=== PATIENT | female | born 1940 | race Caucasian/White ===

== ENCOUNTER → 2016-12-29 | Outpatient (CLI) | payer OTHER ==
[~2016-12-29] MED LIST: FURO-85 PO; INSDGI SC; LEVO75TA PO; METF-384 PO; METH118C PO; METO50TA16 PO; NVLG SQ; NXM/40 PO; SIMV-151 PO
== END | disposition home or self-care (01) ==
LOC: C.LABSPEC 17:38
PROVIDERS: ATTEND Urology
DX: N20.0 Calculus of kidney (principal)

== ENCOUNTER → 2017-02-15 | Day surgery (SDC) | payer OTHER ==
[2016-10-14 14:18] VITALS: BMI 47.0
[2017-01-20 08:35] VITALS: Ht 154.9 cm; Wt 113.6 kg
[~2017-02-15] VITALS: Ht 154.9 cm; Wt 113.6 kg
[~2017-02-15] MED LIST changes: +500ML BSS 0.3ML EPI 1:1000PF IRRIG ONE; +ACETAMINOPHEN 325 MG TAB PO PRN; +AMVISC PLUS 0.8ML SYRINGE INT OCU ONE; +ATROPINE SULFATE 0.1 MG/ML 5ML SYR IV PRN; +BSS FLUSH ONE; +EpHEDrine SULFATE INJ 50 MG/ML AMP IV PRN; +EpINEphrine INJ 1MG/ML AMP 1 MG/ML AMP ONE; +HydrALAZINE HCL 20 MG/ML VIAL ONE; +INSU1INJ33; +LACTATED RINGER'S 1000ML 500 ML IV SCH; +LIDOCAINE 3.5% OPH GEL PER APPLICATION CHARGE ONE; +LIDOCAINE HCL 1% MPF 2 ML VIAL ONE; +MIDAZOLAM HCL 1 MG/ML 2ML VIAL ONE; +NURSING VERBAL MED ORDER ONE; +OCUCOAT 1 ML SOLN IO ONE; +ONDANSETRON INJ 2 MG/ML 2 ML VIAL IV PRN; +POVIDONE-IODINE OP SOLN 30 ML BTL ONE; +PROPARACAINE 0.5% OP SOLN PER DROP CHARGE OPL SCH; +TOBRAMYCIN/DEXAMETHASONE OPH OINT PER APPLN CHARGE ONE
[2017-02-15] MEDS: PHENYLEPHRINE HCL 2.5% OP SOLN PER DROP CHARGE OPL SCH ×2 (06:44→06:47)
[2017-02-15] MEDS: TROPICAMIDE 1% OP SOLN PER DROP CHARGE OPL SCH ×2 (06:45→06:48)
[2017-02-15] MEDS: CYCLOPENTOLATE HCL 1% OP SOLN PER DROP CHARGE OPL SCH ×2 (06:46→06:49)
[2017-02-15] MEDS: GATIFLOXACIN OP SOLN PER DROP CHARGE OPL SCH ×2 (06:47→06:51)
[2017-02-15] MEDS: KETOROLAC 0.5% OP SOLN PER DROP CHARGE OPL SCH ×2 (06:55→06:56)
--- NOTE | 2017-02-15 06:57 | History & Physical Bridge - [place] ---
H&P Re-Evaluation Bridge Note: I have examined the patient, reviewed the History & Physical and in the interval since the performance of the History & Physical I have noted the following changes of clinical significance: Diagnosis: Left Cataract Procedure: Left Cataract Removal with Lens Implant No changes noted
--- NOTE | 2017-02-15 07:41 | Discharge Instructions-SurgCtr ---
Discharge Instructions Date of Service Feb 15, 2017. Visit Reason for Visit: Cataract Left Eye Discharge Discharge Diagnosis / Problem: cataract Discharge Goals Goal(s): Improve function Medications Stopped Medications Name(s): Metformin last taken 02/12/17 Activity Recommendations Activity Limitations: per Instructions/Follow-up section Anesthesia . Post Anesthesia Instructions: If you have had General Anesthesia or IV Sedation: * Do not drive today. * Resume driving when surgeon permits. * Do not make important decisions or sign legal documents today. * Call surgeon for: 1. Temperature elevations greater than 101 degrees F. 2. Uncontrollable pain. 3. Excessive bleeding. 4. Persistent nausea and vomiting. 5. Medication intolerance (nausea, vomiting or rash). * For nausea and vomiting use only clear liquids such as: tea, soda, bouillon until nausea subsides, then gradually increase diet as tolerated. * If you have any concerns or questions, call your surgeon's office. If physician is unavailable and it is an emergency, call 911 or go to the nearest emergency room. . Diet Recommendations Home Diet: resume previous diet Procedures Procedures Performed: Left Cataract Phacoemulsification With Intraocular Lens Implant Pending Studies Studies pending at discharge: no Medical Emergencies . Who to Call and When: Medical Emergencies: If at any time you feel your situation is an emergency, please call 911 immediately. . Non-Emergent Contact Non-Emergency issues call your: Underwriting Intern . . "Provider Documentation" section prepared by Patrice Ramirez. .
--- NOTE | 2017-02-15 07:42 | [facility] Operative Report ---
Operative Report Date of Service Feb 15, 2017. Operative Report 1. PREOPERATIVE DIAGNOSIS: Cataract of the left eye. 2. POSTOPERATIVE DIAGNOSIS: Same. 3. PROCEDURE: Phacoemulsification with intraocular lens implantation of the left eye. SURGEON: Dr. Patrice Ramirez. ANESTHESIA: Topical Lidocaine gel, 1% Non- Preserved intracameral Lidocaine, and monitored intravenous sedation. INDICATIONS FOR THE PROCEDURE: The patient is a 76 - year-old female with a history of cataract of the left eye causing significant visual impairment. The details of the proposed procedure were explained to the patient who asked appropriate questions and following discussion of all risks, benefits and alternatives agreed to have the procedure done. 4. OPERATION AND FINDINGS: DESCRIPTION OF PROCEDURE: After informed consent was obtained, the patient was brought to the Operating Room at the [facility]. The patient was placed in a supine position and then the left eye was prepped and draped in the usual sterile fashion for intraocular surgery. A drop of topical Lidocaine gel was placed in the operative eye. A wire lid speculum was then placed in the fornices. A corneal paracentesis was then created temporally. The Non-Preserved Lidocaine was then instilled into the anterior chamber. The anterior chamber was then pressurized with viscoelastic. A 2.0 mm clear corneal incision was then created temporally. A cystotome was inserted into the anterior chamber and used to create a tear in the anterior lens capsule. This capsular tear was then used to create a small flap and the flap was dragged in a counterclockwise direction in order to create a continuous curvilinear capsulorrhexis. Hydrodissection was accomplished with balanced salt solution. Phacoemulsification of the lens nucleus was then performed in a standard [id number] technique. The phaco time was 42 seconds with an average power of 13 %. The remaining cortical material was removed using irrigation aspiration. The capsular bag was then filled with viscoelastic. A [employer] Lomb MI60L +22.5 diopters lens was then loaded into the injector and injected into the capsular bag. The remaining viscoelastic was removed with the irrigation aspiration handpiece. The wound was hydrated and then checked and found to be watertight. The intraocular pressure was checked and found to be adequate. The wire lid speculum was removed and the patient's face was cleaned and dried. TobraDex ointment was placed in the inferior fornix. The patient was discharged to the Recovery Room having tolerated the procedure well. There were no complications. The patient will be seen tomorrow in the office for follow-up. I attest to the content of the Intraoperative Record and any orders documented therein. Any exceptions are noted below.
[2017-02-15 08:16] VITALS: BP 149/71; PULSE 64; TEMP 36.4; O2SAT 95
--- NOTE | 2017-02-15 08:18 | Anesthesia Progress Nt - [facility] ---
Anesthesia Post Op Note Date & Time Feb 15, 2017 at 08:18 Vital Signs Pain Intensity: 0 Vital Signs Past 12 Hours Date Time Temp Pulse Resp B/P (MAP) Pulse Ox O2 Delivery O2 Flow Rate FiO2 02/15/17 08:16 36.4 64 16 149/71 (97) 95 Room Air 02/15/17 07:45 36.4 68 16 144/84 (104) 95 Room Air 02/15/17 06:36 36.8 60 18 151/91 (111) 98 Room Air Notes Mental Status: alert / awake / arousable, participated in evaluation Pt Amnestic to Procedure: Yes Nausea / Vomiting: adequately controlled Pain: adequately controlled Airway Patency, RR, SpO2: stable & adequate BP & HR: stable & adequate Hydration State: stable & adequate Anesthetic Complications: no major complications apparent
== END | disposition home or self-care (01) ==
LOC: X.SURG 06:18
PROVIDERS: ATTEND Ophthalmology
DX: H26.9 Unspecified cataract (principal); E11.9 Type 2 diabetes mellitus without complications; I25.10 Atherosclerotic heart disease of native coronary artery without angina pectoris; I10 Essential (primary) hypertension; E78.00 Pure hypercholesterolemia, unspecified; R00.2 Palpitations; K21.9 Gastro-esophageal reflux disease without esophagitis; E66.9 Obesity, unspecified; Z90.710 Acquired absence of both cervix and uterus; Z90.49 Acquired absence of other specified parts of digestive tract; Z90.89 Acquired absence of other organs; Z79.4 Long term (current) use of insulin

== ENCOUNTER → 2017-04-19 | Day surgery (SDC) | payer OTHER ==
[2017-02-24 11:18] VITALS: Ht 154.9 cm; Wt 113.6 kg
[~2017-04-19] VITALS: Ht 154.9 cm; Wt 113.6 kg
[~2017-04-19] MED LIST changes: +CYCLOPENTOLATE HCL 1% OP SOLN PER DROP CHARGE OPR SCH; +GATIFLOXACIN OP SOLN PER DROP CHARGE OPR SCH; -HydrALAZINE HCL 20 MG/ML VIAL ONE; +INSULIN HUMAN REGULAR PER UNIT 3 UNITS in SYRINGE 0 ML IV STA; +KETOROLAC 0.5% OP SOLN PER DROP CHARGE OPR SCH; -NURSING VERBAL MED ORDER ONE; +NovoLIN-R INSULIN PER UNIT CHARGE ONE; -ONDANSETRON INJ 2 MG/ML 2 ML VIAL IV PRN; +PHENYLEPHRINE HCL 10% OP SOLN PER DROP CHARGE OPR SCH; +PHENYLEPHRINE HCL 2.5% OP SOLN PER DROP CHARGE OPR SCH; -PROPARACAINE 0.5% OP SOLN PER DROP CHARGE OPL SCH; +PROPARACAINE 0.5% OP SOLN PER DROP CHARGE OPR SCH; +TROPICAMIDE 1% OP SOLN PER DROP CHARGE OPR SCH
[2017-04-19] MEDS: PHENYLEPHRINE HCL 2.5% OP SOLN PER DROP CHARGE OPR SCH ×2 (06:55→07:01)
[2017-04-19] MEDS: TROPICAMIDE 1% OP SOLN PER DROP CHARGE OPR SCH ×2 (06:56→07:02)
[2017-04-19] MEDS: CYCLOPENTOLATE HCL 1% OP SOLN PER DROP CHARGE OPR SCH ×2 (06:57→07:03)
[2017-04-19] MEDS: KETOROLAC 0.5% OP SOLN PER DROP CHARGE OPR SCH ×2 (06:58→07:04)
[2017-04-19] MEDS: GATIFLOXACIN OP SOLN PER DROP CHARGE OPR SCH ×2 (06:59→07:05)
--- NOTE | 2017-04-19 07:30 | History & Physical Bridge - [place] ---
H&P Re-Evaluation Bridge Note: I have examined the patient, reviewed the History & Physical and in the interval since the performance of the History & Physical I have noted the following changes of clinical significance: No changes noted
--- NOTE | 2017-04-19 08:00 | [facility] Operative Report ---
Operative Report Date of Service Apr 19, 2017. Operative Report 1. PREOPERATIVE DIAGNOSIS: Cataract of the right eye. 2. POSTOPERATIVE DIAGNOSIS: Same. 3. PROCEDURE: Phacoemulsification with intraocular lens implantation of the right eye. SURGEON: Dr. Patrice Ramirez. ANESTHESIA: Topical Lidocaine gel, 1% Non- Preserved intracameral Lidocaine, and monitored intravenous sedation. INDICATIONS FOR THE PROCEDURE: The patient is a 76 - year-old female with a history of cataract of the right eye causing significant visual impairment. The details of the proposed procedure were explained to the patient who asked appropriate questions and following discussion of all risks, benefits and alternatives agreed to have the procedure done. 4. OPERATION AND FINDINGS: DESCRIPTION OF PROCEDURE: After informed consent was obtained, the patient was brought to the Operating Room at the [facility]. The patient was placed in a supine position and then the right eye was prepped and draped in the usual sterile fashion for intraocular surgery. A drop of topical Lidocaine gel was placed in the operative eye. A wire lid speculum was then placed in the fornices. A corneal paracentesis was then created temporally. The Non-Preserved Lidocaine was then instilled into the anterior chamber. The anterior chamber was then pressurized with viscoelastic. A 2.0 mm clear corneal incision was then created temporally. A cystotome was inserted into the anterior chamber and used to create a tear in the anterior lens capsule. This capsular tear was then used to create a small flap and the flap was dragged in a counterclockwise direction in order to create a continuous curvilinear capsulorrhexis. Hydrodissection was accomplished with balanced salt solution. Phacoemulsification of the lens nucleus was then performed in a standard [id number]-[id number]-[id number] technique. The phaco time was 19 seconds with an average power of 10 %. The remaining cortical material was removed using irrigation aspiration. The capsular bag was then filled with viscoelastic. A [employer]ch [employer] Lomb MI60L +22.5 diopters lens was then loaded into the injector and injected into the capsular bag. The remaining viscoelastic was removed with the irrigation aspiration handpiece. The wound was hydrated and then checked and found to be watertight. The intraocular pressure was checked and found to be adequate. The wire lid speculum was removed and the patient's face was cleaned and dried. TobraDex ointment was placed in the inferior fornix. The patient was discharged to the Recovery Room having tolerated the procedure well. There were no complications. The patient will be seen tomorrow in the office for follow-up. I attest to the content of the Intraoperative Record and any orders documented therein. Any exceptions are noted below.
--- NOTE | 2017-04-19 08:01 | Discharge Instructions-SurgCtr ---
Discharge Instructions Date of Service Apr 19, 2017. Visit Reason for Visit: Cataract Right Eye Discharge Discharge Diagnosis / Problem: cataract Discharge Goals Goal(s): Improve function Medications Stopped Medications Name(s): held metformin for 5 days Activity Recommendations Activity Limitations: per Instructions/Follow-up section Anesthesia . Post Anesthesia Instructions: If you have had General Anesthesia or IV Sedation: * Do not drive today. * Resume driving when surgeon permits. * Do not make important decisions or sign legal documents today. * Call surgeon for: 1. Temperature elevations greater than 101 degrees F. 2. Uncontrollable pain. 3. Excessive bleeding. 4. Persistent nausea and vomiting. 5. Medication intolerance (nausea, vomiting or rash). * For nausea and vomiting use only clear liquids such as: tea, soda, bouillon until nausea subsides, then gradually increase diet as tolerated. * If you have any concerns or questions, call your surgeon's office. If physician is unavailable and it is an emergency, call 911 or go to the nearest emergency room. . Diet Recommendations Home Diet: resume previous diet Procedures Procedures Performed: Right Cataract Phacoemulsification With Intraocular Lens Implant Pending Studies Studies pending at discharge: no Medical Emergencies . Who to Call and When: Medical Emergencies: If at any time you feel your situation is an emergency, please call 911 immediately. . Non-Emergent Contact Non-Emergency issues call your: Nuclear Cardiology Technologist . . "Provider Documentation" section prepared by Patrice Ramirez. .
[2017-04-19 08:05] VITALS: TEMP 36.5
--- NOTE | 2017-04-19 08:14 | Anesthesia Progress Nt - [facility] ---
Anesthesia Post Op Note Date & Time Apr 19, 2017 at 08:14 Vital Signs Pain Intensity: 0 Vital Signs Past 12 Hours Date Time Temp Pulse Resp B/P (MAP) Pulse Ox O2 Delivery O2 Flow Rate FiO2 04/19/17 08:05 36.5 70 16 160/81 (107) 95 Room Air 04/19/17 06:46 37.0 67 16 133/75 (94) 96 Room Air Notes Mental Status: alert / awake / arousable, participated in evaluation Pt Amnestic to Procedure: Yes Nausea / Vomiting: adequately controlled Pain: adequately controlled Airway Patency, RR, SpO2: stable & adequate BP & HR: stable & adequate Hydration State: stable & adequate Anesthetic Complications: no major complications apparent
[2017-04-19 08:25] VITALS: PULSE 67; O2SAT 95
[2017-04-19 08:27] VITALS: BP 161/89
== END | disposition home or self-care (01) ==
LOC: X.SURG 06:18
PROVIDERS: ATTEND Ophthalmology
DX: H26.9 Unspecified cataract (principal); E11.9 Type 2 diabetes mellitus without complications; I51.9 Heart disease, unspecified; I10 Essential (primary) hypertension; Z88.8 Allergy status to other drugs, medicaments and biological substances; Z88.5 Allergy status to narcotic agent; Z88.6 Allergy status to analgesic agent; Z88.2 Allergy status to sulfonamides; Z79.899 Other long term (current) drug therapy; Z79.84 Long term (current) use of oral hypoglycemic drugs; Z79.82 Long term (current) use of aspirin

== ENCOUNTER 2024-02-22 10:58 | Inpatient (IN) ==
--- NOTE | 2024-02-22 11:18 | Emergency Department Note ---
Impression & Plan JOSHI (dyspnea on exertion), Atrial fibrillation ED Provider Note NAME: SHAYAN HENDERSON AGE: 83 SEX: F : 1940 ARRIVES VIA: Ambulance INFORMANT: Patient, EMS ED PROVIDER(S): Kyle Blair DO CHIEF COMPLAINT: Shortness of breath HPI: The patient is an 83-year-old female who presented to the emergency department for an evaluation of shortness of breath and lower extremity edema. The patient has a history of renal insufficiency but also cardiac disease. She has a history of paroxysmal atrial fibrillation. The patient was following up with her metallurgical specialist today. While she was at the office she was noted to be very short of breath. There is concern the patient was not doing well. She was sent to our emergency department by ambulance. I did receive a phone call by the metallurgical specialist prior to sending the patient. The patient has a history of right-sided heart failure as well as an LAD stent. She also has a history of paroxysmal atrial fibrillation and volume overload. She was recently admitted at a different facility. She was treated with IV diuretics but her BUN continues to go up and her shortness of breath continues to worsen. ROS: See above HPI for pertinent positives & negatives. A total of 10 systems reviewed and were otherwise negative. PAST MEDICAL HISTORY: See Below PAST SURGICAL HISTORY: See Below FAMILY HISTORY: See Below SOCIAL HISTORY: See Below HOME MEDICATIONS: See Below ALLERGIES: See Below VITALS: See Below PHYSICAL EXAMINATION: GENERAL: Patient is awake alert and resting comfortably. EYES: The conjunctivae are clear. The pupils are round and reactive. EARS, NOSE, MOUTH AND THROAT: The nose is without any evidence of any deformity. NECK: The neck is nontender and supple. RESPIRATORY: Diminished breath sounds are noted throughout. Rales are noted at both bases. There is mild conversational dyspnea noted. CARDIOVASCULAR: Regular rate and rhythm noted there no murmurs rubs or gallops normal S1 normal S2. GASTROINTESTINAL: The abdomen is soft. Abdomen is nontender. MUSCULOSKELETAL/EXTREMITIES: There is no evidence of gross deformity full range of motion is noted in the hips and shoulders. SKIN: Skin is warm and dry. Pedal edema was noted bilaterally. NEUROLOGIC: Patient is awake alert and oriented x3 MEDICAL DECISION MAKING: The patient is an 83-year-old female who presented to the emergency department for an evaluation of difficulty breathing. I did receive a phone call about the patient from her primary metallurgical specialist requesting an evaluation as well as inpatient management. The patient has had recent issues with volume overload as well as renal insufficiency. She was admitted to an outpatient facility recently and was diuresed. It was felt that the patient needed further inpatient management as well as an echocardiogram to help guide her management going forward. The patient was reevaluated multiple times. The patient does take oral anticoagulation. She was not tachycardic or hypoxic. Vital signs are reassuring. She was found to be in atrial fibrillation. I discussed her condition with the on-call [facility] hospitalist. Triage Nursing notes reviewed. Prior medical records reviewed Vital Signs: reviewed and remarkable for no significant abnormalities Differential diagnosis: Reactive airway disease, pneumonia, pneumothorax, COPD, CHF, infections, cardiac ischemia, pulmonary embolism, musculoskeletal, gastrointestinal, as well as other pathologies. ER treatment provided: See below Diagnostics interpreted by me: ECG: EKG was obtained in the emergency department. My interpretation is atrial fibrillation at 83 bpm. Poor R wave progression was noted. Nonspecific ST segment depressions were noted. No previous tracing was available. Cardiac Monitoring: An order was placed for continuous cardiac monitoring. The monitor shows a rate of 97 bpm with atrial fibrillation. Laboratory studies: As stated above and show below. Imaging studies: See below. Radiographic imaging was reviewed by myself Consultation(s): I discussed this case with Dr. Larios who is on-call for the [facility]. Past Med/Surg History Problem List (Updated 02/22/24 @ 14:02 by Kyle Blair DO) Atrial fibrillation (Acute) JOSHI (dyspnea on exertion) (Acute) Coronary artery disease Anemia Chronic kidney disease, stage 3b Class 3 obesity Hypertension Type 2 diabetes with complication Nephrolithiasis Arthritis (Acute) Diabetes mellitus type 2, uncontrolled (Acute) Dysesthesia (Acute) Dyslipidemia (Acute) History of diabetic ulcer of foot (Acute) Hypertension after donor nephrectomy requiring medication (Acute) Hypothyroidism (Acute) Nephrolithiasis, uric acid (Acute) Nonproliferative diabetic retinopathy of both eyes (Acute) Peripheral neuropathy (Acute) UTI (urinary tract infection) (Acute) Surgical History H/O: hysterectomy Hx of cholecystectomy History of appendectomy Family History Family/Other Cancer Diabetes Hypertension Lung disease Prostate cancer Renal cell carcinoma Social History Smoking Status: Never smoker Hx Alcohol Use: No Preferred Language: Arabic marital status: current occupational status: retired Feels Safe at Home: Yes Allergies Allergies Allergy/AdvReac Type Severity Reaction Status Date / Time celecoxib AdvReac Intermediate VOMITING Verified 04/13/23 08:39 duloxetine AdvReac Intermediate VOMITING Verified 04/13/23 08:39 fosinopril AdvReac Intermediate VOMITING Verified 04/13/23 08:39 gabapentin AdvReac Intermediate VOMITING Verified 04/13/23 08:39 hydrocodone AdvReac Intermediate VOMITING Verified 04/13/23 08:39 milnacipran AdvReac Intermediate VOMITING Verified 04/13/23 08:39 nalbuphine AdvReac Intermediate VOMITING Verified 04/13/23 08:39 NSAIDS (Non-Steroidal AdvReac Intermediate VOMITING Verified 04/13/23 08:39 Anti-Inflamma salicylates AdvReac Intermediate VOMITING Verified 04/13/23 08:39 Sulfa (Sulfonamide AdvReac Intermediate VOMITING Verified 04/13/23 08:39 Antibiotics) trimethoprim AdvReac Intermediate VOMITING Verified 04/13/23 08:39 Pyrazolones AdvReac Intermediate VOMITING Uncoded 04/13/23 08:39 Home Meds Home Medications Medication Instructions Recorded Confirmed ascorbic acid (vitamin C) 500 mg 500 mg PO BID 04/29/22 04/13/23 capsule atorvastatin 80 mg tablet 80 mg PO DAILY 04/29/22 04/13/23 blood sugar diagnostic (OneTouch 04/29/22 04/13/23 Verio test strips) carvedilol 12.5 mg tablet 12.5 mg PO BID 04/29/22 04/13/23 ferrous gluconate 240 mg (27 mg 240 mg PO .QOD 04/29/22 04/13/23 iron) tablet (Fergon) levothyroxine 100 mcg tablet 100 mcg PO DAILY 04/29/22 04/13/23 magnesium chloride 71.5 mg 71.5 mg PO DAILY 04/29/22 04/13/23 (magnesium chloride) tablet,delayed release (Slow-Mag) mecobalamin (vitamin B12) 1,000 1,000 mcg PO DAILY 04/29/22 04/13/23 mcg lozenges montelukast 10 mg tablet 10 mg PO DAILY 04/29/22 04/13/23 ne-og-upzp-FA-Ca carb-vit K 1 tab PO DAILY 04/29/22 04/13/23 [Women's Multivitamin] pantoprazole 40 mg tablet,delayed 40 mg PO DAILY 04/29/22 04/13/23 release pregabalin 50 mg capsule 50 mg PO BID 04/29/22 04/13/23 apixaban 5 mg tablet (Eliquis) 5 mg PO BID 06/30/22 04/13/23 bumetanide 1 mg tablet 1 mg PO BID 06/30/22 04/13/23 dapagliflozin propanediol 5 mg 5 mg PO DAILY 06/30/22 04/13/23 tablet (Farxiga) aspirin 81 mg tablet,delayed 81 mg PO DAILY 08/26/22 04/13/23 release calcium 500 mg (as 1 tab PO BID 08/26/22 04/13/23 carbonate)-vitamin D3 5 mcg (200 unit) tablet (Oyster Shell Calcium-Vitamin D3) liraglutide 0.6 mg/0.1 mL (18 mg/3 1.8 mg subcut DAILY 08/26/22 04/13/23 mL) subcutaneous pen injector (Victoza 3-Manny) lisinopril 10 mg tablet 10 mg PO DAILY 08/26/22 04/13/23 blood-glucose meter (ReliOn 10/06/22 04/13/23 All-In-One Meter kit) Previous Rx's Medication Instructions Recorded methenamine hippurate 1 gram tablet 1 g PO HS #90 tabs 09/01/22 insulin degludec 200 unit/mL (3 40 unit (0.2 mL) subcut QPM #18 mL 04/19/23 mL) subcutaneous pen (Tresiba FlexTouch U-200 insulin) Novolog FlexPen U-100 Insulin 100 See Rx Instructions subcut TID #30 09/12/23 unit/mL (3 mL) subcutaneous mL (insulin aspart U-100) nitrofurantoin 100 mg PO Q12H 7 days #14 caps 09/12/23 monohydrate/macrocrystals 100 mg capsule (Macrobid) amoxicillin 875 mg-potassium 1 tab PO BID 7 days #14 tabs 08/19/24 clavulanate 125 mg tablet Results & Data (ED) Vital Signs Vital Signs - 24 hr 02/22/24 11:14 02/22/24 11:24 Temperature 36.5 C Temperature Source Oral Pulse Rate 86 97 H Respiratory Rate 18 Respiratory Effort / Characteristics Non-Labored Spontaneous Respiratory Depth Normal Respiratory Pattern Regular Blood Pressure 119/65 Blood Pressure Mean 83 Pulse Oximetry 94 Oxygen Delivery Method Room Air Sepsis Recent Fever Within 48 Hours No Sepsis New/Unexplained Change in Mental Status No Sepsis Action Taken by Nursing No Action Required Home Medications Current Medication List: was personally reviewed by me Laboratory Data Attestation: I reviewed the patient's lab results. 02/22/24 11:25 02/22/24 11:25 Lab Results 02/22/24 02/22/24 Range/Units 11:12 11:25 WBC 6.51 (4.8-10.8) K/ul RBC 3.71 L (4.20-5.40) M/uL Hgb 10.3 L (12.0-16.0) g/dl Hct 33.0 L (37.0-47.0) % MCV 88.9 (80.0-100.0) fL MCH 27.8 (25.0-34.0) pg MCHC 31.2 L (32.0-36.0) g/dL RDW Std Deviation 59.1 H (36.4-46.3) fL RDW Coeff of Heidi 18.4 H (11.5-14.5) % Plt Count 167 (130-400) K/uL MPV 9.8 (9.4-12.4) fL Immature Gran % (Auto) 0.5 % Neut % (Auto) 67.0 % Lymph % (Auto) 15.1 % Miller % (Auto) 13.4 % Eos % (Auto) 2.9 % Baso % (Auto) 1.1 % Neut # (Auto) 4.37 (1.40-6.50) K/uL Lymph # (Auto) 0.98 L (1.20-3.40) K/uL Miller # (Auto) 0.87 H (0.11-0.59) K/uL Eos # (Auto) 0.19 (0.00-0.50) K/uL Baso # (Auto) 0.07 (0.00-0.20) K/uL Immature Gran # (Auto) 0.03 (0.01-0.20) K/uL PT 11.3 (9.0-12.0) Seconds INR 1.0 (0.9-1.1) APTT 31 (21-31) Seconds PTT Ratio 1.2 Sodium 141 (136-145) mmol/L Potassium 4.4 (3.5-5.1) mmol/L Chloride 106 (98-107) mmol/L Carbon Dioxide 29 (21-32) mmol/L Anion Gap 6 (3-11) BUN 53 H (6-23) mg/dl Creatinine 1.52 H (0.6-1.2) mg/dl Est Cr Clr Drug Dosing 36.8 ml/min eGFR 34.24 BUN/Creatinine Ratio 34.9 H (10-20) Glucose 125 H (70-99(Fasting)) mg/dl Calcium 9.1 (8.6-10.3) mg/dl Magnesium 2.3 (1.7-2.4) mg/dl Total Bilirubin 0.7 (0.2-1.0) mg/dl AST 14 (13-39) U/L ALT 15 (7-52) U/L Alkaline Phosphatase 37 (34-104) U/L Troponin I High Sens 14.2 H (0-14) pg/ml B-Natriuretic Peptide 414 H (0-100) pg/ml Total Protein 6.7 (6.0-8.3) gm/dl Albumin 4.0 (3.4-5.0) gm/dl Globulin 2.7 (2.5-4.0) gm/dl Albumin/Globulin Ratio 1.5 (0.9-2) SARS-CoV-2 (PCR) NEGATIVE (Negative) Influenza Type A (PCR) Negative (Neg) Influenza Type B (PCR) Negative (Neg) RSV (RT-PCR) Negative (Neg) Imaging Data Attestation: I personally reviewed and interpreted this imaging study as follows: My Impression: 1 view chest x-ray was obtained in the emergency department. My interpretation is no free air, final report below. Radiologist's Impression: Chest X-Ray 02/22/24 11:00 XR chest 1V portable CLINICAL HISTORY: Dyspnea COMPARISON STUDY: None FINDINGS: There is moderate cardiomegaly without pulmonary vascular congestion. No effusion, consolidation, or pneumothorax. IMPRESSION: No acute findings. ACT 112: Negative or not required by law. Electronically signed by: Sonny Hong M.D. 02/22/2024 12:35 PM Discharge Plan Visit Data Chief Complaint: Shortness of Breath/Dyspnea Stated Complaint: SOB, AFIB ED Provider: Kyle Blair Discharge Problem: JOSHI (dyspnea on exertion), Atrial fibrillation Patient Disposition: Being Evaluated by Hospitalist Forms Stand Alone Forms: My [facility] Prescriptions Prescriptions: No Action insulin degludec [Tresiba FlexTouch U-200] 200 unit/mL (3 mL) insulin pen 40 unit subcut QPM Qty: 18 3RF nitrofurantoin monohyd/m-cryst [Macrobid] 100 mg capsule 100 mg PO Q12H 7 Days Qty: 14 0RF Rx Instructions: must administer with a meal/food insulin aspart U-100 [Novolog FlexPen U-100 Insulin] 100 unit/mL (3 mL) insulin pen See Rx Instructions subcut TID Qty: 30 3RF Rx Instructions: subcutaneously three times a day; Inject 8 units for Breakfast, 12 units with lunch and dinner. Add pre meal scale target of 150 cf of 30 amoxicillin-pot clavulanate 875-125 mg tablet 1 tab PO BID 7 Days Qty: 14 0RF (DME) blood-glucose meter [ReliOn All-In-One Meter] Kit See Rx Instructions .Route Rx Instructions: As directed bumetanide 1 mg tablet 1 mg PO BID Farxiga 5 mg tablet 5 mg PO DAILY Eliquis 5 mg tablet 5 mg PO BID methenamine hippurate 1 gram tablet 1 g PO HS Qty: 90 3RF Rx Instructions: Take one tablet at bedtime. pregabalin 50 mg capsule 50 mg PO BID levothyroxine 100 mcg tablet 100 mcg PO DAILY (DME) OneTouch Verio test strips Strip See Rx Instructions .Route Rx Instructions: Test blood sugar four times daily carvedilol 12.5 mg tablet 12.5 mg PO BID Rx Instructions: must administer with a meal/food montelukast 10 mg tablet 10 mg PO DAILY Slow-Mag 71.5 mg tablet,delayed release (DR/EC) 71.5 mg PO DAILY [id number]-FA-Ca carb-vit K [Women's Multivitamin] 1 tab PO DAILY mecobalamin (vitamin B12) 1,000 mcg lozenge 1,000 mcg PO DAILY Rx Instructions: allow to dissolve in mouth OR may chew lightly before swallowing ferrous gluconate [Fergon] 240 mg (27 mg iron) tablet 240 mg PO .QOD pantoprazole 40 mg tablet,delayed release (DR/EC) 40 mg PO DAILY atorvastatin 80 mg tablet 80 mg PO DAILY ascorbic acid (vitamin C) 500 mg capsule 500 mg PO BID Rx Instructions: Take 1 tablet by mouth twice daily with iron supplement Victoza 3-Manny 0.6 mg/0.1 mL (18 mg/3 mL) pen injector 1.8 mg SUBCUT DAILY calcium carbonate-vitamin D3 [Oyster Shell Calcium-Vit D3] 500 mg-5 mcg (200 unit) tablet 1 tab PO BID aspirin [Aspirin Low-Strength] 81 mg Tablet,Delayed Release (Dr/Ec) 81 mg PO DAILY lisinopril 10 mg tablet 10 mg PO DAILY Referrals Referrals: Pricilla Lewis MD [Primary Care Provider] - Discharge Problem: Atrial fibrillation Qualifiers: Atrial fibrillation type: unspecified Qualified Code(s): I48.91 - Unspecified atrial fibrillation
[2024-02-22 11:45] LABS: Basophils # (auto) 0.07 K/uL (0.00-0.20); Basophils % (auto) 1.1 %; Eosinophils # (auto) 0.19 K/uL (0.00-0.50); Eosinophils % (auto) 2.9 %; Hemoglobin 10.3 g/dl (12.0-16.0); Immature Granulocytes # (auto) 0.03 K/uL (0.01-0.20); Immature Granulocytes % (auto) 0.5 %; Lymphocytes # (auto) 0.98 K/uL (1.20-3.40); Lymphocytes % (auto) 15.1 %; Mean Corpuscular Hemoglobin 27.8 pg (25.0-34.0); Mean Corpuscular Hgb Conc 31.2 g/dL (32.0-36.0); Mean Corpuscular Volume 88.9 fL (80.0-100.0); Mean Platelet Volume 9.8 fL (9.4-12.4); Monocytes # (auto) 0.87 K/uL (0.11-0.59); Monocytes % (auto) 13.4 %; Neutrophils # (auto) 4.37 K/uL (1.40-6.50); Platelet Count 167 K/uL (130-400); RDW Coefficient of Variation 18.4 % (11.5-14.5); RDW Standard Deviation 59.1 fL (36.4-46.3); Red Blood Count 3.71 M/uL (4.20-5.40); White Blood Count 6.51 K/ul (4.8-10.8)
[2024-02-22 11:58] LABS: Albumin Globulin Ratio 1.5 (0.9-2); BUN Creatinine Ratio 34.9 (10-20); Bilirubin,Total 0.7 mg/dl (0.2-1.0); Calcium 9.1 mg/dl (8.6-10.3); Creatinine Clr Calc Pharmacy 36.8 ml/min; Globulin 2.7 gm/dl (2.5-4.0); Magnesium 2.3 mg/dl (1.7-2.4); Potassium 4.4 mmol/L (3.5-5.1); Total Protein 6.7 gm/dl (6.0-8.3)
[2024-02-22 12:04] LABS: Troponin I High Sensitivity 14.2 pg/ml (0-14)
[2024-02-22 12:04] LABS: Influenza A virus by PCR Negative (Neg); Influenza B virus by PCR Negative (Neg); RSV by PCR Negative (Neg); SARS CoV2 RNA(COVID-19) Ceph NEGATIVE (Negative)
[2024-02-22 12:06] LABS: Partial Thromboplastin Ratio 1.2; Partial Thromboplastin Time 31 Seconds (21-31); Prothrombin Time 11.3 Seconds (9.0-12.0)
--- NOTE | 2024-02-22 12:36 | XRay Report ---
XR chest 1V portable CLINICAL HISTORY: Dyspnea COMPARISON STUDY: None FINDINGS: There is moderate cardiomegaly without pulmonary vascular congestion. No effusion, consolid ation, or pneumothorax. IMPRESSION: No acute findings. ACT 112: Negative or not required by law. Electronically signed by: Sonny Hong M.D. 02/22/2024 12:35 PM
[2024-02-22 14:05] LABS: HCO3 VBG 28 mmol/L; Oxygen Saturation VBG 60.2 %; PCO2 VBG 43 mmHg (38-50); PO2 VBG 35 mmHg; pH VBG 7.42 (7.36-7.41)
--- NOTE | 2024-02-22 15:28 | History & Physical Report ---
Date of Service February 22, 2024 Assessment & Plan (1) Acute exacerbation of CHF (congestive heart failure): Plan: Acute/decompensated CHF with more right-sided symptomatology - Admit to med tele - IV Bumex 1mg x1 ordered in ER and will start Bumex 2mg IV @ 0900 and 1700 - Update TTE, ordered and completed in ER, pending read - HS trop x2 negative - 14.2 --> 13.7 - EKG without acute ischemic changes - Continue Coreg 12.5mg BID from home for now - Consult Dr. Alvarenga, pt known to her, appreciate assistance - Monitor daily weights in AM and I/O q shift - Salt restriction ordered - PRN supplemental O2 to maintain sats >90% (2) Atrial fibrillation: Plan: Chronic/stable - Ventricular rate controlled but may be experiencing intermittent bursts of RVR? - Consider transition from Coreg to Metoprolol Succ for increased rate control. Will defer to cardiology. - Continue Eliquis 2.5mg BID (3) Chronic kidney disease, stage 3b: Plan: Chronic/stable - Creat 1.52, given weight, eGFR 57 - Likely the creatinine increase from 1.4 in August 2022 to 1.5 in Feb 2024 likely represents chronic progression - Continue to monitor renal function in the setting of diuresis (4) Type 2 diabetes with complication: Plan: Chronic - Last a1c was 8.2% in 2022 - Update a1c - Continue Tresiba or pharmacy to place on equivalent medication per hospital formulary - Continue accuchecks ac and hs with log coverage with meals. CF 20 and CR 7 - Diabetic diet has been ordered - Pharmacy consult has been placed for glycemic management, appreciate assistance Plan Chronic medical problems: 1. HTN - continue coreg 12.5mg BID, BP w/ acceptable control 2. GERD - continue protonix 20mg daily 3. CAD - chronic, continue aspirin, atorvastatin, and coreg 4. Hypothyroidism - chronic, continue levothyroxine 112mcg daily in BB AM labs ordered including CBC, BMP, and Mag. Eliquis is on board for DVT ppx. Plan of care has been d/w Dr. Larios who has also seen and evaluated this patient and agrees with aforementioned. Also discussed case with Dr. Alvarenga. History of Present Illness Chief Complaint: Weight gain, lower extremity edema Primary Care Provider: MD Minal Bey is an 83 yo F with a pmhx of CAD, HTN, DMT2, HLD and PAF who presents to the ER today c/o increased lower extremity edema and weight gain. She reports that she has been experiencing increased dyspnea with exertion, occasionally nonproductive cough, and a weight gain of about 4 lbs over the last couple of days. She endorses orthopnea as well as intermittent palpitations. She has a h/o PAF but reports that she feels that she has been in afib more frequently than prior. She has been taking her Bumex as prescribed and denies increased fluid consumption of dietary indiscretion. Last cardiology note of record in [employer] is from May 2023 at [facility] where it was noted her last echo was from November 2022 showing EF 55-60%, moderate MR, and ascending aorta measuring 4.3 cm. Her ER work up this afternoon is notable for a BNP of 414, creatinine of 1.52 which is slightly elevated from the last reading in our system which was from August 2022 and was 1.41. CXR demonstrated cardiomegaly but no PVC. She is hemodynamically stable, EKG demonstrates afib with rate control and right axis deviation. No acute ST-T wave changes. She reports that her Bumex dose was doubled on Tuesday to 2mg BID and despite that she continues to experience symptoms. She was seen today in Dr. Alvarenga's office ([facility]) and was sent to the ER due to hypoxia and acute exacerbation of CHF. She is currently resting comfortably in bed and offers no complaints. Allergies Allergy/AdvReac Type Severity Reaction Status Date / Time celecoxib AdvReac Intermediate VOMITING Verified 02/22/24 15:44 duloxetine AdvReac Intermediate VOMITING Verified 02/22/24 15:44 fosinopril AdvReac Intermediate VOMITING Verified 02/22/24 15:44 gabapentin AdvReac Intermediate VOMITING Verified 02/22/24 15:44 hydrocodone AdvReac Intermediate VOMITING Verified 02/22/24 15:44 milnacipran AdvReac Intermediate VOMITING Verified 02/22/24 15:44 nalbuphine AdvReac Intermediate VOMITING Verified 02/22/24 15:44 NSAIDS (Non-Steroidal AdvReac Intermediate VOMITING Verified 02/22/24 15:44 Anti-Inflamma salicylates AdvReac Intermediate VOMITING Verified 02/22/24 15:44 Sulfa (Sulfonamide AdvReac Intermediate VOMITING Verified 02/22/24 15:44 Antibiotics) trimethoprim AdvReac Intermediate VOMITING Verified 02/22/24 15:44 Pyrazolones AdvReac Intermediate VOMITING Uncoded 02/22/24 15:44 Home Medications Medication Instructions Recorded Confirmed Type ascorbic acid (vitamin C) 500 mg 500 mg PO BID 04/29/22 02/22/24 History capsule atorvastatin 80 mg tablet 0 mg PO DAILY 04/29/22 02/22/24 History blood sugar diagnostic (OneTouch 04/29/22 04/13/23 History Verio test strips) carvedilol 12.5 mg tablet 12.5 mg PO BID 04/29/22 02/22/24 History magnesium chloride 71.5 mg 71.5 mg PO DAILY 04/29/22 02/22/24 History (magnesium chloride) tablet,delayed release (Slow-Mag) mecobalamin (vitamin B12) 1,000 1,000 mcg PO DAILY 04/29/22 02/22/24 History mcg lozenges montelukast 10 mg tablet 10 mg PO DAILY 04/29/22 02/22/24 History pregabalin 50 mg capsule 50 mg PO BID 04/29/22 02/22/24 History aspirin 81 mg tablet,delayed 81 mg PO DAILY 08/26/22 02/22/24 History release calcium 500 mg (as 1 tab PO BID 08/26/22 02/22/24 History carbonate)-vitamin D3 5 mcg (200 unit) tablet (Oyster Shell Calcium-Vitamin D3) liraglutide 0.6 mg/0.1 mL (18 mg/3 1.8 mg subcut QAM 08/26/22 02/22/24 History mL) subcutaneous pen injector (Victoza 3-Manny) blood-glucose meter (ReliOn 10/06/22 04/13/23 History All-In-One Meter kit) insulin degludec 200 unit/mL (3 40 unit (0.2 mL) subcut QPM #18 mL 04/19/23 02/22/24 Rx mL) subcutaneous pen (Tresiba FlexTouch U-200 insulin) Novolog FlexPen U-100 Insulin 100 See Rx Instructions subcut TID #30 09/12/23 02/22/24 Rx unit/mL (3 mL) subcutaneous mL (insulin aspart U-100) apixaban 2.5 mg tablet (Eliquis) 2.5 mg PO BID 02/22/24 02/22/24 History bumetanide 2 mg tablet 2 mg PO BID 02/22/24 02/22/24 History clotrimazole-betamethasone 1 1 applic topical DAILY 02/22/24 02/22/24 History %-0.05 % topical cream ferrous gluconate 225 mg (27 mg 225 mg PO 3XWK 02/22/24 02/22/24 History iron) tablet levothyroxine 112 mcg tablet 112 mcg PO DAILY 02/22/24 02/22/24 History methenamine hippurate 1 gram tablet 0 g PO HS 02/22/24 02/22/24 History gldnpmll-hub-gwkjz ac 400 1 tab PO DAILY 02/22/24 02/22/24 History mcg-calcium carb 500 mg-vit K1 20 mcg tablet (Women's 50 Plus Multivitamin) nystatin 100,000 unit/gram topical 100,000 unit topical DAILY 02/22/24 02/22/24 History powder pantoprazole 20 mg tablet,delayed 20 mg PO DAILY 02/22/24 02/22/24 History release Past Med/Surg History Problem List Right-sided congestive heart failure secondary to left-sided congestive heart failure Diastolic CHF, chronic Coronary artery disease Mitral valve disease Mitral regurgitation and mitral stenosis Pulmonary hypertension due to mitral valve disease Chronic atrial fibrillation with rapid ventricular response Anemia in chronic kidney disease (CKD) Acute on chronic renal insufficiency Acute exacerbation of CHF (congestive heart failure) Atrial fibrillation (Acute) JOSHI (dyspnea on exertion) (Acute) Anemia Chronic kidney disease, stage 3b Class 3 obesity Hypertension Type 2 diabetes with complication Nephrolithiasis Arthritis (Acute) Diabetes mellitus type 2, uncontrolled (Acute) Dysesthesia (Acute) Dyslipidemia (Acute) History of diabetic ulcer of foot (Acute) Hypertension after donor nephrectomy requiring medication (Acute) Hypothyroidism (Acute) Nephrolithiasis, uric acid (Acute) Nonproliferative diabetic retinopathy of both eyes (Acute) Peripheral neuropathy (Acute) UTI (urinary tract infection) (Acute) Surgical History H/O: hysterectomy Hx of cholecystectomy History of appendectomy Family History Family/Other Cancer Diabetes Hypertension Lung disease Prostate cancer Renal cell carcinoma Social History Smoking Status: Never smoker Hx Alcohol Use: No Hx Substance Use: No Preferred Language: Chadian Communication Ability: Effective Cage Operator Required: No Beliefs That Will Affect Care: None marital status: Current Living Situation: Alone current occupational status: retired Feels Safe at Home: Yes Assistive Devices: Scooter/Electric Scooter, Walker and Wheelchair Review of Systems 2 Review of Systems: All systems reviewed and are unremarkable except as noted in HPI and below. Denies fever, chills, fatigue, headache, nasal congestion, sore throat, chest pain, PND, abdominal pain, n/v/d, constipation, dysuria, hematuria, frequency, back pain, joint pain or swelling, easy bruising or bleeding, skin lesions or rashes. Physical Exam 2 Physical Exam: GENERAL: 83 yo morbidly obese elderly WF. No distress. EYES: EOMI. PERRLA. Anicteric. HENT: Moist mucous membranes. No cervical lymphadenopathy. LUNGS: Nonlabored. Bibasilar crackles. No wheezes or rhonchi. CARDIOVASCULAR: Irregular rhythm with controlled ventricular rate ABDOMEN: Soft, obese, non-tender and non-distended. BS normoactive x 4 quad. EXTREMITIES: +2 b/l LE pitting edema. Peripheral pulses +2/4. NEUROLOGIC: A&O x3. CN II-XII grossly intact. PSYCHIATRIC: Cooperative. Appropriate mood and affect. SKIN: Warm, dry, intact. No rashes or lesions. Results & Data Results & Data Vital Signs (Past 12 Hours) Vital Signs Temp Pulse Pulse Resp BP BP Pulse Ox 02/22/24 15:00 94 H 18 142/96 H 91 02/22/24 14:03 78 19 92 02/22/24 14:01 122/73 02/22/24 13:57 70 18 96 02/22/24 13:30 70 17 02/22/24 13:06 77 18 92 02/22/24 13:00 122/82 02/22/24 12:51 82 95 02/22/24 12:33 78 23 96 02/22/24 12:31 132/90 02/22/24 12:18 80 15 94 02/22/24 12:00 68 16 94 02/22/24 11:30 74 15 96 02/22/24 11:24 97 H 02/22/24 11:14 36.5 C 86 18 119/65 94 02/22/24 11:12 68 34 H 93 02/22/24 11:06 119/65 O2 Del Method 02/22/24 15:00 Room Air 02/22/24 14:03 Room Air 02/22/24 14:01 02/22/24 13:57 Room Air 02/22/24 13:30 02/22/24 13:06 Room Air 02/22/24 13:00 02/22/24 12:51 Room Air 02/22/24 12:33 Room Air 02/22/24 12:31 02/22/24 12:18 02/22/24 12:00 02/22/24 11:30 02/22/24 11:24 02/22/24 11:14 Room Air 02/22/24 11:12 02/22/24 11:06 Laboratory Results 02/22/24 11:25 02/22/24 11:25 BNP = 414 Diagnostic Findings Chest X-Ray 02/22/24 11:00 XR chest 1V portable CLINICAL HISTORY: Dyspnea COMPARISON STUDY: None FINDINGS: There is moderate cardiomegaly without pulmonary vascular congestion. No effusion, consolidation, or pneumothorax. IMPRESSION: No acute findings. ACT 112: Negative or not required by law. Electronically signed by: Sonny Hong M.D. 02/22/2024 12:35 PM Code Status & VTE Plan Code Status Full code = DNR/DNI VTE Prophylaxis Plan VTE Prophylaxis will be ordered: Yes Supervising Physician Co-Signing Physician Notes I personally saw and examined the patient. I independently reviewed the labs, EKG, imaging, problem list, medication list, past medical history and family history. I verified all leigh points and agree with Kavya Navarro PA-C with the following exceptions and/or additions: 83 year old female presents to the ER on advice of her cumulative effects analyst due to weight gain, leg swelling and shortness of breath on exertion. O/E increased rate, irregular rhuthm, no murmurs, Chest CTAB, Abdo SNT A/P Acute on chronic HFpEF - appears to me mostly right sided, TTE. Bumex 2mg IV BID as advised by cardiology but low tolerance to increase this. ?worse from a. fib episodes (unclear whether she is paroxysmal or permanent. Will defer better rate control to cardiology but consider digoxin with concurrent HF. Shortness of breath - suspect related to HFpEF however in the absence of pulmonary edema consider ischemic testing but will defer to this to cardiology, TTE to assess for pericardial effusion, if not improving consider CT for PE but given she is taking Eliquis this is less likely PG Care Time/CCT Total # of Minutes Spent Total Time Spent with Patient: Total time spent is greater than 50% in coordination of care (as documented) at patient's floor/unit and/or counseling patient: 80 minutes Coding Level of Care Code 83307 INT INP/OBS CARE 3/75MIN Diagnoses Acute on chronic congestive heart failure, unspecified heart failure type I50.9 Heart failure type: unspecified Atrial fibrillation I48.91 Atrial fibrillation type: unspecified Chronic kidney disease, stage 3b N18.32 Type 2 diabetes with complication E11.8 (1) Acute exacerbation of CHF (congestive heart failure) Heart failure type: unspecified Qualified Code(s): I50.9 - Heart failure, unspecified (2) Atrial fibrillation Atrial fibrillation type: unspecified Qualified Code(s): I48.91 - Unspecified atrial fibrillation
[2024-02-22 15:50] LABS: Appearance Urine Cloudy (Clear); Bacteria Urine Automated 4+ (None Seen); Bilirubin Urine Negative (Negative); Blood Urine Trace (Negative); Color Urine Yellow; Epithelial Cell Urine Auto 0-2 /hpf (0-2); Glucose Urine UA Negative (Negative); Ketones Urine Negative (Negative); Leukocyte Esterase Urine 3+ (Negative); Nitrite Urine Negative (Negative); Protein Urine 1+ (Negative); RBC Urine Automated 0-2 /hpf (0-2); Specific Gravity Urine 1.017 (1.000-1.030); Urobilinogen Urine Negative (Negative); WBC Urine Automated >50 /hpf (0-5)
[2024-02-22] MEDS: BUMETANIDE 1 MG in SYRINGE 0 ML IV ONE (15:59)
[2024-02-22] MEDS ORDERED: PHARMACY GLYCEMIC MGMT CONSULT PRN (17:18)
[2024-02-22] MEDS ORDERED: ALUMINUM/MAGNESIUM SUSP 30 ML UDC PO PRN (17:18)
[2024-02-22] MEDS ORDERED: GLUCOSE 40% GEL 15 GM TUBE PO PRN (17:18)
[2024-02-22] MEDS ORDERED: MAGNESIUM HYDROXIDE SUSP 30 ML UDC PO PRN (17:18)
[2024-02-22] MEDS ORDERED: GLUCOSE 10 TAB/TUBE PO PRN (17:18)
[2024-02-22] MEDS ORDERED: DEXTROSE 50% 50 ML SYRINGE IV PRN (17:18)
[2024-02-22] MEDS ORDERED: CARBOHYDRATES FOR HYPOGLYCEMIA PO PRN (17:18)
[2024-02-22] MEDS ORDERED: GLUCAGON FOR INJ 1 MG VIAL SQ PRN (17:18)
--- NOTE | 2024-02-22 17:23 | Electrocardiogram Report ---
Test Reason : Blood Pressure : */* mmHG Vent. Rate : 83 BPM Atrial Rate : * BPM P-R Int : * ms QRS Dur : 92 ms QT Int : 398 ms P-R-T Axes : * 130 16 degrees QTcB Int : 467 ms Atrial fibrillation Right axis deviation Low voltage QRS Cannot rule out Anterior infarct , age undetermined Abnormal ECG No previous ECGs available Confirmed by Amparo Alvarenga (Tanna) on 02/22/2024 5:22:51 PM Referred By: Confirmed By: Amparo Alvarenga
--- NOTE | 2024-02-22 18:20 | Cardiology Consultation ---
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 Watch renal function closely. If her renal function decreases, she may benefit from ultrafiltration, however sometimes this is difficult with VHD. Consider consult Nephrology. Will follow her Afib HR. She has been in Afib for years and the size of her LA on the echo today, makes maintaining NSR very unlikely. She also noted tightness in her chest, it is possible her CAD is worse. If her BP allows, we may want to start oral or topical nitrates. She may need another cath to redefine her anatomy. I think she would also certainly benefit for RHC information as well, however in the setting of her renal insufficiency, would need nephrology to sign off on this. Will follow for now. Will attempt increasing her carvedilol to better control HR once diuresed. She absolutely needs DC on home oxygen for acute on chronic cor pulmonale and right sided CHF. She may also benefit from changing her loop diuretic over to Torsemide which has better bioavailability particularly with right sided CHF and gut edema as opposed to bumex or Lasix - this can be done at the time of DC however. I will also consider getter her started on Furoscix which is SQ Lasix infusion which is reported to have the same bioavailability as IV lasix without the renal compromise. I have had good results in patients like Minal who wallk a very fine line between too wet and too dry using the Furoscix 1-2 times weekly. History of Present Illness Reason for Consultation: CHF Requesting Physician: Pt known to Dr. Pricilla Lewis Attending Physician: Kranthi Larios MD History of Present Illness Please see my office note from earlier today. Minal is a 83 yo who I have followed for several years with a hx of CAD, last stent was in [address] Chris wesley at [facility] in [place]. who also has chronic persistant Afib on Eliquis, with heavy mitral annular calcification causing restriction of the mitral valve and mitral stenosis of at least a moderate severity as well as mitral regurgitation, tricuspid regurgitation and significant pulmonary hypertension resulting in combined right sided CHF along with diastolic CHF. She has struggle with renal insufficiency as well. When she is fluid overloaded, her Cr and BUN appear better, and when she is diuresed her function is worse. She has also had intermittent anemia (on the basis of her renal failure, but also iron deficiency-previous GI eval was in ? I think 2021 also at [facility] with a negative EGD and colonoscopy). She was to be started on IV iron infusions by her talent consultant, but this has not been arranged. The fall has been very difficult for Minal-in November she was admitted to [facility] with the intent of starting dialysis, vascular surgery placed a fistula, but she must have done well with IV diuresis and she did not get dialyzed. She was in the hospital for 11 days. She was DC and ended up going back again with similar issues. In late December developed COVID and was hospitalized now in [facility] ([facility]) and again treated for CHF. She was slowly getting worse through most of January. Earlier this week her home visiting RN contacted my office looking for advise, but because I have not seen her since May 2023, advised that she come to the office, which she did today. She was brought by [facility]. SHe tried walking in to my office with a walker and just about collapsed due to severe SOB and hypoxia. She was placed in a wheel chair and it was determined that she was going to need to be hospitalized. She was transported to the ER via ambulance. Allergies Allergy/AdvReac Type Severity Reaction Status Date / Time celecoxib AdvReac Intermediate VOMITING Verified 02/22/24 15:44 duloxetine AdvReac Intermediate VOMITING Verified 02/22/24 15:44 fosinopril AdvReac Intermediate VOMITING Verified 02/22/24 15:44 gabapentin AdvReac Intermediate VOMITING Verified 02/22/24 15:44 hydrocodone AdvReac Intermediate VOMITING Verified 02/22/24 15:44 milnacipran AdvReac Intermediate VOMITING Verified 02/22/24 15:44 nalbuphine AdvReac Intermediate VOMITING Verified 02/22/24 15:44 NSAIDS (Non-Steroidal AdvReac Intermediate VOMITING Verified 02/22/24 15:44 Anti-Inflamma salicylates AdvReac Intermediate VOMITING Verified 02/22/24 15:44 Sulfa (Sulfonamide AdvReac Intermediate VOMITING Verified 02/22/24 15:44 Antibiotics) trimethoprim AdvReac Intermediate VOMITING Verified 02/22/24 15:44 Pyrazolones AdvReac Intermediate VOMITING Uncoded 02/22/24 15:44 Home Medications Medication Instructions Recorded Confirmed Type ascorbic acid (vitamin C) 500 mg 500 mg PO BID 04/29/22 02/22/24 History capsule atorvastatin 80 mg tablet 0 mg PO DAILY 04/29/22 02/22/24 History blood sugar diagnostic (OneTouch 04/29/22 04/13/23 History Verio test strips) carvedilol 12.5 mg tablet 12.5 mg PO BID 04/29/22 02/22/24 History magnesium chloride 71.5 mg 71.5 mg PO DAILY 04/29/22 02/22/24 History (magnesium chloride) tablet,delayed release (Slow-Mag) mecobalamin (vitamin B12) 1,000 1,000 mcg PO DAILY 04/29/22 02/22/24 History mcg lozenges montelukast 10 mg tablet 10 mg PO DAILY 04/29/22 02/22/24 History pregabalin 50 mg capsule 50 mg PO BID 04/29/22 02/22/24 History aspirin 81 mg tablet,delayed 81 mg PO DAILY 08/26/22 02/22/24 History release calcium 500 mg (as 1 tab PO BID 08/26/22 02/22/24 History carbonate)-vitamin D3 5 mcg (200 unit) tablet (Oyster Shell Calcium-Vitamin D3) liraglutide 0.6 mg/0.1 mL (18 mg/3 1.8 mg subcut QAM 08/26/22 02/22/24 History mL) subcutaneous pen injector (Victoza 3-Manny) blood-glucose meter (ReliOn 10/06/22 04/13/23 History All-In-One Meter kit) insulin degludec 200 unit/mL (3 40 unit (0.2 mL) subcut QPM #18 mL 04/19/23 02/22/24 Rx mL) subcutaneous pen (Tresiba FlexTouch U-200 insulin) Novolog FlexPen U-100 Insulin 100 See Rx Instructions subcut TID #30 09/12/23 02/22/24 Rx unit/mL (3 mL) subcutaneous mL (insulin aspart U-100) apixaban 2.5 mg tablet (Eliquis) 2.5 mg PO BID 02/22/24 02/22/24 History bumetanide 2 mg tablet 2 mg PO BID 02/22/24 02/22/24 History clotrimazole-betamethasone 1 1 applic topical DAILY 02/22/24 02/22/24 History %-0.05 % topical cream ferrous gluconate 225 mg (27 mg 225 mg PO 3XWK 02/22/24 02/22/24 History iron) tablet levothyroxine 112 mcg tablet 112 mcg PO DAILY 02/22/24 02/22/24 History methenamine hippurate 1 gram tablet 0 g PO HS 02/22/24 02/22/24 History cdgbnuxw-cnr-hhhbo ac 400 1 tab PO DAILY 02/22/24 02/22/24 History mcg-calcium carb 500 mg-vit K1 20 mcg tablet (Women's 50 Plus Multivitamin) nystatin 100,000 unit/gram topical 100,000 unit topical DAILY 02/22/24 02/22/24 History powder pantoprazole 20 mg tablet,delayed 20 mg PO DAILY 02/22/24 02/22/24 History release Patient History Surgical History H/O: hysterectomy Hx of cholecystectomy History of appendectomy Family History Family/Other Cancer Diabetes Hypertension Lung disease Prostate cancer Renal cell carcinoma Social History Smoking Status: Never smoker Hx Alcohol Use: No Preferred Language: [place] marital status: current occupational status: retired Feels Safe at Home: Yes Review of Systems Review of Systems: All systems reviewed & are unremarkable except as noted in HPI & below Physical Exam Physical Exam: in office was in moderate respiratory distress Constitutional: appears pale Neck: +JVD Respiratory: rales b/l at bases Cardiovascular: irregular tachy diastolic murmur difficult to hear systolic murmur at apex noted Gastrointestinal (Abdomen): obese soft Skin: +2 edema b/l Results & Data Vital Signs (Past 12 Hours) Vital Signs Temp Pulse Pulse Resp BP BP Pulse Ox 02/22/24 16:16 77 02/22/24 15:48 85 L 02/22/24 15:00 94 H 18 142/96 H 91 02/22/24 14:03 78 19 92 02/22/24 14:01 122/73 02/22/24 13:57 70 18 96 02/22/24 13:30 70 17 02/22/24 13:06 77 18 92 02/22/24 13:00 122/82 02/22/24 12:51 82 95 02/22/24 12:33 78 23 96 02/22/24 12:31 132/90 02/22/24 12:18 80 15 94 02/22/24 12:00 68 16 94 02/22/24 11:30 74 15 96 02/22/24 11:24 97 H 02/22/24 11:14 36.5 C 86 18 119/65 94 02/22/24 11:12 68 34 H 93 02/22/24 11:06 119/65 O2 Del Method O2 Flow Rate 02/22/24 16:16 02/22/24 15:48 Nasal Cannula 0 02/22/24 15:00 Room Air 02/22/24 14:03 Room Air 02/22/24 14:01 02/22/24 13:57 Room Air 02/22/24 13:30 02/22/24 13:06 Room Air 02/22/24 13:00 02/22/24 12:51 Room Air 02/22/24 12:33 Room Air 02/22/24 12:31 02/22/24 12:18 02/22/24 12:00 02/22/24 11:30 02/22/24 11:24 02/22/24 11:14 Room Air 02/22/24 11:12 02/22/24 11:06 Laboratory Results Abnormal lab results 02/22/24 02/22/24 02/22/24 Range/Units 11:25 14:00 15:10 RBC 3.71 L (4.20-5.40) M/uL Hgb 10.3 L (12.0-16.0) g/dl Hct 33.0 L (37.0-47.0) % MCHC 31.2 L (32.0-36.0) g/dL RDW Std Deviation 59.1 H (36.4-46.3) fL RDW Coeff of Heidi 18.4 H (11.5-14.5) % Lymph # (Auto) 0.98 L (1.20-3.40) K/uL [place] # (Auto) 0.87 H (0.11-0.59) K/uL VBG pH 7.42 H (7.36-7.41) BUN 53 H (6-23) mg/dl Creatinine 1.52 H (0.6-1.2) mg/dl BUN/Creatinine Ratio 34.9 H (10-20) Glucose 125 H (70-99(Fasting)) mg/dl Troponin I High Sens 14.2 H (0-14) pg/ml B-Natriuretic Peptide 414 H (0-100) pg/ml Urine Appearance Cloudy A (Clear) Urine Protein 1+ H (Negative) Urine Blood Trace H (Negative) Ur Leukocyte Esterase 3+ H (Negative) Urine WBC (Auto) >50 H (0-5) /hpf U Hyaline Cast (Auto) 3-5 H (0-2) /lpf Urine Bacteria (Auto) 4+ H (None Seen) Diagnostic Findings BNP 440 Trop 14.2 Medications Administered Current Inpatient Medications Acetaminophen (Acetaminophen 325 Mg Tab) 650 mg PO Q4H PRN PRN Reason: Pain or Fever Stop: 03/23/24 17:17 Al Hydrox/Mg Hydrox/Simethicone (Aluminum/Magnesium Susp 30 Ml Udc) 15 ml PO Q4H PRN PRN Reason: Dyspepsia Stop: 03/23/24 17:17 Apixaban (Apixaban 2.5 Mg Tab) 2.5 mg PO BID [facility] Stop: 03/23/24 20:59 Aspirin (Aspirin 81 Mg Ectab) 81 mg PO DAILY ABBIE Stop: 03/24/24 08:59 Atorvastatin Calcium (Atorvastatin 40 Mg Tab) 80 mg PO DAILY ABBIE Stop: 03/24/24 08:59 Carvedilol (Carvedilol 12.5 Mg Tab) 12.5 mg PO BIDM [facility] Stop: 03/24/24 07:59 Dextrose (Dextrose 50% 50 Ml Syringe) 25 - 50 ml IV UD PRN; Protocol PRN Reason: Hypoglycemia Protocol Stop: 03/23/24 17:17 Glucagon (Glucagon For Inj 1 Mg Vial) 1 mg SQ UD PRN; Protocol PRN Reason: Hypoglycemia Protocol Stop: 03/23/24 17:17 Glucose (Glucose 40% Gel 15 Gm Tube) 15 - 30 gm PO UD PRN; Protocol PRN Reason: Hypoglycemia Protocol Stop: 03/23/24 17:17 Glucose (Glucose 10 Tab/Tube) 4 - 8 tab PO UD PRN; Protocol PRN Reason: Hypoglycemia Protocol Stop: 03/23/24 17:17 Bumetanide 2 mg/ Syringe 8 mls @ 4 mls/min IV BID@0900,1700 ABBIE Stop: 03/23/24 17:29 Insulin Aspart (Insulin Aspart Per Unit Charge) 0 units SC ACHS ABBIE Stop: 03/23/24 17:17 Insulin Glargine (Lantus Per Unit Charge) 20 units SQ QPM ABBIE Stop: 03/23/24 20:59 Levothyroxine Sodium (Levothyroxine Sodium 112 Mcg Tablet) 112 mcg PO DAILYBB ABBIE Stop: 03/24/24 06:29 Magnesium Hydroxide (Magnesium Hydroxide Susp 30 Ml Udc) 30 ml PO Q12H PRN PRN Reason: Constipation Stop: 03/23/24 17:17 Miscellaneous (Carbohydrates For Hypoglycemia ) 15 - 30 gm PO UD PRN PRN Reason: Hypoglycemia Protocol Stop: 03/23/24 17:17 Miscellaneous Information (Pharmacy Glycemic Mgmt Consult) 1 each N/A UD PRN PRN Reason: Consult Stop: 03/23/24 17:17 Montelukast Sodium (Montelukast Sodium 10 Mg Tablet) 10 mg PO DAILY [facility] Stop: 03/24/24 08:59 Ondansetron HCl (Ondansetron Inj 2 Mg/Ml 2 Ml Vial) 4 mg IV Q6H PRN PRN Reason: Nausea Stop: 03/23/24 17:17 Pantoprazole Sodium (Pantoprazole 40 Mg Tab) 40 mg PO DAILY [facility] Stop: 03/24/24 08:59 Pregabalin (Pregabalin 50 Mg Cap) 50 mg PO BID ABBIE Stop: 03/23/24 20:59
[2024-02-22] MEDS: INSULIN ASPART PER UNIT CHARGE SC SCH (18:53)
[2024-02-22] MEDS: BUMETANIDE 2 MG in SYRINGE 0 ML IV SCH (18:53)
[2024-02-22] MEDS: LANTUS PER UNIT CHARGE SQ SCH (21:44)
[2024-02-22] MEDS: ACETAMINOPHEN 325 MG TAB PO PRN (22:31)
[2024-02-22] MEDS: APIXABAN 2.5 MG TAB PO SCH (22:34)
[2024-02-22] MEDS: ONDANSETRON INJ 2 MG/ML 2 ML VIAL IV PRN (23:28)
[2024-02-22] MEDS: PREGABALIN 50 MG CAP PO SCH (23:45)
[2024-02-23] MEDS: LEVOTHYROXINE SODIUM 112 MCG TABLET PO SCH (05:34)
[2024-02-23 07:16] LABS: Estimated Average Glucose 180 mg/dl; Hemoglobin A1C 7.9 % (4.5-5.6)
[2024-02-23 07:28] LABS: BUN Creatinine Ratio 32.9 (10-20); Calcium 8.5 mg/dl (8.6-10.3); Creatinine Clr Calc Pharmacy 37.5 ml/min; Magnesium 2.2 mg/dl (1.7-2.4); Potassium 4.2 mmol/L (3.5-5.1)
[2024-02-23 07:31] LABS: Basophils # (auto) 0.06 K/uL (0.00-0.20); Basophils % (auto) 0.6 %; Eosinophils # (auto) 0.11 K/uL (0.00-0.50); Hematocrit (blood only) 31.5 % (37.0-47.0); Hemoglobin 9.7 g/dl (12.0-16.0); Immature Granulocytes # (auto) 0.07 K/uL (0.01-0.20); Immature Granulocytes % (auto) 0.7 %; Lymphocytes # (auto) 0.88 K/uL (1.20-3.40); Lymphocytes % (auto) 8.2 %; Mean Corpuscular Hemoglobin 27.2 pg (25.0-34.0); Mean Corpuscular Hgb Conc 30.8 g/dL (32.0-36.0); Mean Corpuscular Volume 88.5 fL (80.0-100.0); Mean Platelet Volume 10.7 fL (9.4-12.4); Monocytes # (auto) 0.84 K/uL (0.11-0.59); Monocytes % (auto) 7.9 %; Neutrophils # (auto) 8.73 K/uL (1.40-6.50); Neutrophils % (auto) 81.6 %; Platelet Count 170 K/uL (130-400); RDW Coefficient of Variation 18.5 % (11.5-14.5); RDW Standard Deviation 59.6 fL (36.4-46.3); Red Blood Count 3.56 M/uL (4.20-5.40); White Blood Count 10.69 K/ul (4.8-10.8)
--- NOTE | 2024-02-23 08:03 | Hospitalist Progress Note ---
Date of Service February 23, 2024 Assessment & Plan (1) Acute exacerbation of CHF (congestive heart failure): (2) Atrial fibrillation: (3) Chronic kidney disease, stage 3b: (4) Type 2 diabetes with complication: Plan 83-year-old woman with HFpEF MR/MS, pulmonary hypertension, CKD-3b with brittle volume status admitted with heart failure exacerbation #acute on chronic HFpEF, right and left heart failure, mitral regurgitation/mitral stenosis, valvular pulmonary hypertension #atrial fibrillation with rapid ventricular response, likely permanent atrial fibrillation #CKD 3B with tenuous renal status, required dialysis in the fall has fistula #CAD with some chest tightness TTE this admission borderline LVEF 50-55%, moderate to severe mitral regurg and mitral stenosis, mild concentric LVH, mildly dilated RV and LV, severely dilated LA moderately dilated RA, moderate TR, RVSP 50-60 mm continue diuresis was only -1 L overnight weight unchanged and bp 90/55 this AM. HR 99-126 afib [address]. D[address] with Dr. Alvarenga. Held carvedilol for hypotension, digoxin while in hospital caution with renal function - 250 mcg q6h x 3 doses, check level in AM then probably 125 daily starting tomorrow or following day, started bumex drip at 0.5h, serial BMP and mag while on drip q6h change Bumex to torsemide for discharge, for better GI absorption continue apixaban if chest tightness/angina persists, add nitrate and consider angiogram, troponins were negative on admission BMP stable today with BUN 49 creatinine 1.49 normal potassium discussed with Dr. Alvarenga, consulted staff nurse Dr. Hoffman hypoxia and pulmonary hypertension - 2 step for home O2 prior to discharge #DM type 2. A1c 7.9 which is adequate for her advanced age Continue Tresiba or pharmacy to place on equivalent medication per hospital formulary Continue premeal/PRN insulin Pharmacy consult has been placed for glycemic management, appreciate assistance BG at goal 02/22 Chronic medical problems: HTN - carvedilol held currently hypotensive GERD - continue protonix Hypothyroidism - chronic, continue levothyroxine 112mcg daily in BB DVT ppx - apixaban Admission and Anticipated Discharge Date Admission Date: February 22, 2024 Subjective Her dyspnea at rest is a little bit better this AM, however, didn't have much increase in UOP with bumex 2 mg IV No chest pain currently. Edema up to tops of thighs and also feels like her abdomen is swollen. Physical Exam 2 Physical Exam: PHYSICAL EXAMINATION Last 24h vital signs reviewed, see documentation in flowsheet General: sitting up in the chair HEENT: Normocephalic, atraumatic, pupils round and equal, sclerae anicteric, no conjunctival injection, moist mucus membranes Lungs: mildly increased WOB, crackles 1/[address] up posteriorly, diminished in bases. Heart: tachycardic and irreg irreg, systolic murmur. JVD present Abdomen: Soft, nontender, nondistended. Bowel sounds present. Extremities: Warm, dry, well-perfused. anasarca. pitting edema to tops of thighs Neuro: Alert and oriented x 4, face symmetric, moves 4 extremities well Psych: Normal affect and behavior Results & Data Results & Data Vital Signs (Past 12 Hours) Vital Signs Temp Pulse Pulse Resp BP Pulse Ox O2 Del Method 02/23/24 07:15 111 H 02/23/24 03:40 97.9 F 118 H 20 117/74 96 Nasal Cannula 02/23/24 00:45 Nasal Cannula 02/23/24 00:23 126 H 02/22/24 23:32 96 H 20 132/97 92 Nasal Cannula 02/22/24 21:30 93 H 18 127/92 93 Nasal Cannula O2 Flow Rate 02/23/24 07:15 02/23/24 03:40 3 02/23/24 00:45 3 02/23/24 00:23 02/22/24 23:32 2 02/22/24 21:30 2 Laboratory Results 02/23/24 06:37 02/23/24 06:37 PG Care Time/CCT Total # of Minutes Spent Total Time Spent with Patient: Total time spent is greater than 50% in coordination of care (as documented) at patient's floor/unit and/or counseling patient: Coding Level of Care Code 73766 SUB INP/OBS CARE 3/50MIN Diagnoses Acute on chronic congestive heart failure, unspecified heart failure type I50.9 Heart failure type: unspecified Atrial fibrillation I48.91 Atrial fibrillation type: unspecified Chronic kidney disease, stage 3b N18.32 Type 2 diabetes with complication E11.8 (1) Acute exacerbation of CHF (congestive heart failure) Heart failure type: unspecified Qualified Code(s): I50.9 - Heart failure, unspecified (2) Atrial fibrillation Atrial fibrillation type: unspecified Qualified Code(s): I48.91 - Unspecified atrial fibrillation
[2024-02-23] MEDS: carvediloL 12.5 MG TAB PO SCH (08:36)
[2024-02-23] MEDS: MONTELUKAST SODIUM 10 MG TABLET PO SCH (08:45)
[2024-02-23] MEDS: ASPIRIN 81 MG ECTAB PO SCH (08:45)
[2024-02-23] MEDS: ATORVASTATIN 40 MG TAB PO SCH (08:45)
[2024-02-23] MEDS: PANTOprazole 40 MG TAB PO SCH (08:45)
[2024-02-23] MEDS ORDERED: INFLUENZA VACC TS2024-25(65y+)/PF (IIV3) 0.5mL Syr IM ONE (09:00)
[2024-02-23] MEDS ORDERED: PNEUMOCOCCAL VACCINE (PCV20) 20-VAL CONJ-DIP CRM/PF 0.5 ML SYR IM ONE (09:00)
[2024-02-23] MEDS: DIGOXIN 250 MCG in SYRINGE 9 ML IV SCH (09:07)
[2024-02-23] MEDS: BUMETANIDE 10 MG in DEXTROSE 5% 10 ML IV SCH (09:17)
--- NOTE | 2024-02-23 09:37 | Cardiology Consultation ---
Date of Consultation February 23, 2024 Assessment & Plan (1) Right-sided congestive heart failure secondary to left-sided congestive heart failure: (2) Diastolic CHF, chronic: (3) Coronary artery disease: (4) Mitral valve disease: (5) Mitral regurgitation and mitral stenosis: (6) Chronic atrial fibrillation with rapid ventricular response: (7) Pulmonary hypertension due to mitral valve disease: (8) Acute on chronic renal insufficiency: (9) Anemia in chronic kidney disease (CKD): Plan Switch to IV Bumex drip to see if this helps. Watch renal function closely. If her renal function decreases, she may benefit from ultrafiltration, however sometimes this is difficult with VHD. Consider consult Nephrology. Will follow her Afib HR. She has been in Afib for years and the size of her LA on the echo today, makes maintaining NSR very unlikely. She also noted tightness in her chest, it is possible her CAD is worse. If her BP allows, we may want to start oral or topical nitrates. She may need another cath to redefine her anatomy. I think she would also certainly benefit for RHC information as well, however in the setting of her renal insufficiency, would need nephrology to sign off on this. Will follow for now. Will attempt increasing her carvedilol to better control HR once diuresed. She absolutely needs DC on home oxygen for acute on chronic cor pulmonale and right sided CHF. She may also benefit from changing her loop diuretic over to Torsemide which has better bioavailability particularly with right sided CHF and gut edema as opposed to bumex or Lasix - this can be done at the time of DC however. I will also consider getter her started on Furoscix which is SQ Lasix infusion which is reported to have the same bioavailability as IV lasix without the renal compromise. I have had good results in patients like Minal who wallk a very fine line between too wet and too dry using the Furoscix 1-2 times weekly. History of Present Illness Attending Physician: Beth Liu MD History of Present Illness She did not diurese well overnight. Minal is a 83 yo who I have followed for several years with a hx of CAD, last stent was in [address] Villanueva at [facility] in [place]. who also has chronic persistant Afib on Eliquis, with heavy mitral annular calcification causing restriction of the mitral valve and mitral stenosis of at least a moderate severity as well as mitral regurgitation, tricuspid regurgitation and significant pulmonary hypertension resulting in combined right sided CHF along with diastolic CHF. She has struggle with renal insufficiency as well. When she is fluid overloaded, her Cr and BUN appear better, and when she is diuresed her function is worse. She has also had intermittent anemia (on the basis of her renal failure, but also iron deficiency-previous GI eval was in ? I think 2021 also at [facility] with a negative EGD and colonoscopy). She was to be started on IV iron infusions by her news assistant, but this has not been arranged. The fall has been very difficult for Minal-in November she was admitted to [facility] with the intent of starting dialysis, vascular surgery placed a fistula, but she must have done well with IV diuresis and she did not get dialyzed. She was in the hospital for 11 days. She was DC and ended up going back again with similar issues. In late December developed COVID and was hospitalized now in [facility] ([facility]) and again treated for CHF. She was slowly getting worse through most of January. Earlier this week her home visiting RN contacted my office looking for advise, but because I have not seen her since May 2023, advised that she come to the office, which she did today. She was brought by [facility]. SHe tried walking in to my office with a walker and just about collapsed due to severe SOB and hypoxia. She was placed in a wheel chair and it was determined that she was going to need to be hospitalized. She was transported to the ER via ambulance. Allergies Allergies Allergy/AdvReac Type Severity Reaction Status Date / Time celecoxib AdvReac Intermediate VOMITING Verified 02/22/24 15:44 duloxetine AdvReac Intermediate VOMITING Verified 02/22/24 15:44 fosinopril AdvReac Intermediate VOMITING Verified 02/22/24 15:44 gabapentin AdvReac Intermediate VOMITING Verified 02/22/24 15:44 hydrocodone AdvReac Intermediate VOMITING Verified 02/22/24 15:44 milnacipran AdvReac Intermediate VOMITING Verified 02/22/24 15:44 nalbuphine AdvReac Intermediate VOMITING Verified 02/22/24 15:44 NSAIDS (Non-Steroidal AdvReac Intermediate VOMITING Verified 02/22/24 15:44 Anti-Inflamma salicylates AdvReac Intermediate VOMITING Verified 02/22/24 15:44 Sulfa (Sulfonamide AdvReac Intermediate VOMITING Verified 02/22/24 15:44 Antibiotics) trimethoprim AdvReac Intermediate VOMITING Verified 02/22/24 15:44 Pyrazolones AdvReac Intermediate VOMITING Uncoded 02/22/24 15:44 Home Medications Medication Instructions Recorded Confirmed Type ascorbic acid (vitamin C) 500 mg 500 mg PO BID 04/29/22 02/22/24 History capsule atorvastatin 80 mg tablet 0 mg PO DAILY 04/29/22 02/22/24 History blood sugar diagnostic (OneTouch 04/29/22 04/13/23 History Verio test strips) carvedilol 12.5 mg tablet 12.5 mg PO BID 04/29/22 02/22/24 History magnesium chloride 71.5 mg 71.5 mg PO DAILY 04/29/22 02/22/24 History (magnesium chloride) tablet,delayed release (Slow-Mag) mecobalamin (vitamin B12) 1,000 1,000 mcg PO DAILY 04/29/22 02/22/24 History mcg lozenges montelukast 10 mg tablet 10 mg PO DAILY 04/29/22 02/22/24 History pregabalin 50 mg capsule 50 mg PO BID 04/29/22 02/22/24 History aspirin 81 mg tablet,delayed 81 mg PO DAILY 08/26/22 02/22/24 History release calcium 500 mg (as 1 tab PO BID 08/26/22 02/22/24 History carbonate)-vitamin D3 5 mcg (200 unit) tablet (Oyster Shell Calcium-Vitamin D3) liraglutide 0.6 mg/0.1 mL (18 mg/3 1.8 mg subcut QAM 08/26/22 02/22/24 History mL) subcutaneous pen injector (Victoza 3-Manny) blood-glucose meter (ReliOn 10/06/22 04/13/23 History All-In-One Meter kit) insulin degludec 200 unit/mL (3 40 unit (0.2 mL) subcut QPM #18 mL 04/19/23 02/22/24 Rx mL) subcutaneous pen (Tresiba FlexTouch U-200 insulin) Novolog FlexPen U-100 Insulin 100 See Rx Instructions subcut TID #30 07/29/24 01/08/25 Rx unit/mL (3 mL) subcutaneous mL (insulin aspart U-100) apixaban 2.5 mg tablet (Eliquis) 2.5 mg PO BID 02/22/24 02/22/24 History bumetanide 2 mg tablet 2 mg PO BID 02/22/24 02/22/24 History clotrimazole-betamethasone 1 1 applic topical DAILY 02/22/24 02/22/24 History %-0.05 % topical cream ferrous gluconate 225 mg (27 mg 225 mg PO 3XWK 02/22/24 02/22/24 History iron) tablet levothyroxine 112 mcg tablet 112 mcg PO DAILY 02/22/24 02/22/24 History methenamine hippurate 1 gram tablet 0 g PO HS 02/22/24 02/22/24 History huiawjhf-wvs-dqolp ac 400 1 tab PO DAILY 02/22/24 02/22/24 History mcg-calcium carb 500 mg-vit K1 20 mcg tablet (Women's 50 Plus Multivitamin) nystatin 100,000 unit/gram topical 100,000 unit topical DAILY 02/22/24 02/22/24 History powder pantoprazole 20 mg tablet,delayed 20 mg PO DAILY 02/22/24 02/22/24 History release Patient History Surgical History H/O: hysterectomy Hx of cholecystectomy History of appendectomy Family History Family/Other Cancer Diabetes Hypertension Lung disease Prostate cancer Renal cell carcinoma Social History Smoking Status: Never smoker Hx Alcohol Use: No Hx Substance Use: No Preferred Language: Romanian Communication Ability: Effective Environmental Analyst Required: No Beliefs That Will Affect Care: None marital status: Current Living Situation: Alone current occupational status: retired Feels Safe at Home: Yes Assistive Devices: Scooter/Electric Scooter, Walker and Wheelchair Review of Systems Review of Systems: All systems reviewed & are unremarkable except as noted in HPI & below Physical Exam Physical Exam: similar to yesterday Respiratory: diminished BS b/l Cardiovascular: irregular tachy Results & Data Vital Signs (Past 12 Hours) Vital Signs Temp Pulse Pulse Resp BP Pulse Ox O2 Del Method 02/23/24 09:07 80 02/23/24 08:02 36.7 C 99 H 18 91/56 L 93 Nasal Cannula 02/23/24 07:15 111 H 02/23/24 03:40 36.6 C 118 H 20 117/74 96 Nasal Cannula 02/23/24 00:45 Nasal Cannula 02/23/24 00:23 126 H 02/22/24 23:32 96 H 20 132/97 92 Nasal Cannula O2 Flow Rate 02/23/24 09:07 02/23/24 08:02 2 02/23/24 07:15 02/23/24 03:40 3 02/23/24 00:45 3 02/23/24 00:23 02/22/24 23:32 2 Laboratory Results Abnormal lab results 02/22/24 02/22/24 02/22/24 Range/Units 11:25 14:00 15:10 RBC 3.71 L (4.20-5.40) M/uL Hgb 10.3 L (12.0-16.0) g/dl Hct 33.0 L (37.0-47.0) % MCHC 31.2 L (32.0-36.0) g/dL RDW Std Deviation 59.1 H (36.4-46.3) fL RDW Coeff of Heidi 18.4 H (11.5-14.5) % Neut # (Auto) (1.40-6.50) K/uL Lymph # (Auto) 0.98 L (1.20-3.40) K/uL [place] # (Auto) 0.87 H (0.11-0.59) K/uL VBG pH 7.42 H (7.36-7.41) BUN 53 H (6-23) mg/dl Creatinine 1.52 H (0.6-1.2) mg/dl BUN/Creatinine Ratio 34.9 H (10-20) Glucose 125 H (70-99(Fasting)) mg/dl POC Glucose (70-99) mg/dl Hemoglobin A1c (4.5-5.6) % Calcium (8.6-10.3) mg/dl Troponin I High Sens 14.2 H (0-14) pg/ml B-Natriuretic Peptide 414 H (0-100) pg/ml Urine Appearance Cloudy A (Clear) Urine Protein 1+ H (Negative) Urine Blood Trace H (Negative) Ur Leukocyte Esterase 3+ H (Negative) Urine WBC (Auto) >50 H (0-5) /hpf U Hyaline Cast (Auto) 3-5 H (0-2) /lpf Urine Bacteria (Auto) 4+ H (None Seen) 02/22/24 02/22/24 02/23/24 Range/Units 18:25 21:41 00:33 RBC (4.20-5.40) M/uL Hgb (12.0-16.0) g/dl Hct (37.0-47.0) % MCHC (32.0-36.0) g/dL RDW Std Deviation (36.4-46.3) fL RDW Coeff of Heidi (11.5-14.5) % Neut # (Auto) (1.40-6.50) K/uL Lymph # (Auto) (1.20-3.40) K/uL [place] # (Auto) (0.11-0.59) K/uL VBG pH (7.36-7.41) BUN (6-23) mg/dl Creatinine (0.6-1.2) mg/dl BUN/Creatinine Ratio (10-20) Glucose (70-99(Fasting)) mg/dl POC Glucose 126 H 125 H 154 H (70-99) mg/dl Hemoglobin A1c (4.5-5.6) % Calcium (8.6-10.3) mg/dl Troponin I High Sens (0-14) pg/ml B-Natriuretic Peptide (0-100) pg/ml Urine Appearance (Clear) Urine Protein (Negative) Urine Blood (Negative) Ur Leukocyte Esterase (Negative) Urine WBC (Auto) (0-5) /hpf U Hyaline Cast (Auto) (0-2) /lpf Urine Bacteria (Auto) (None Seen) 02/23/24 02/23/24 Range/Units 06:37 08:15 RBC 3.56 L (4.20-5.40) M/uL Hgb 9.7 L (12.0-16.0) g/dl Hct 31.5 L (37.0-47.0) % MCHC 30.8 L (32.0-36.0) g/dL RDW Std Deviation 59.6 H (36.4-46.3) fL RDW Coeff of Heidi 18.5 H (11.5-14.5) % Neut # (Auto) 8.73 H (1.40-6.50) K/uL Lymph # (Auto) 0.88 L (1.20-3.40) K/uL [place] # (Auto) 0.84 H (0.11-0.59) K/uL VBG pH (7.36-7.41) BUN 49 H (6-23) mg/dl Creatinine 1.49 H (0.6-1.2) mg/dl BUN/Creatinine Ratio 32.9 H (10-20) Glucose 161 H (70-99(Fasting)) mg/dl POC Glucose 144 H (70-99) mg/dl Hemoglobin A1c 7.9 H (4.5-5.6) % Calcium 8.5 L (8.6-10.3) mg/dl Troponin I High Sens (0-14) pg/ml B-Natriuretic Peptide (0-100) pg/ml Urine Appearance (Clear) Urine Protein (Negative) Urine Blood (Negative) Ur Leukocyte Esterase (Negative) Urine WBC (Auto) (0-5) /hpf U Hyaline Cast (Auto) (0-2) /lpf Urine Bacteria (Auto) (None Seen)
--- NOTE | 2024-02-23 13:10 | Nephrology Consultation ---
Date of Consultation February 23, 2024 Assessment & Plan (1) Right-sided congestive heart failure secondary to left-sided congestive heart failure: (2) Anemia in chronic kidney disease (CKD): (3) Chronic kidney disease, stage 3b: (4) Acute exacerbation of CHF (congestive heart failure): (5) Diabetes mellitus type 2, uncontrolled: Plan 83 yo f with stage IIIb CKD, b/l cr seems to be around 1.5-1.6 mg/dl which has been historically variable with volume status, secondary to cardiorenal syndrome with history of right-sided heart failure with pulmonary hypertension and severe MR and TR. admitted with acute exacerbation of CHF with failed outpatient diuretic and significant weight gain and shortness of breath. Kidney function seems to be staying at baseline, electrolyte acceptable. Started on Bumex drip and responding well, remained quite volume overloaded. Blood pressure relatively stable. --Continue on Bumex drip, aim for net - 1 L/day, strict monitoring of intake and output --Check iron study, will consider Venofer if iron deficient, otherwise will start on epogen --Eventually she would benefit from ABELINO inhibitor/ARB and SGLT2 inhibitors --renal panel and phosphate in am --left arm nephrology precaution. Thank you for allowing me to participate in your patient's care. It was a pleasure to see Minal History of Present Illness Reason for Consultation: CHF, volume overload, Cardiorenal syndrome Attending Physician: Beth Liu MD History of Present Illness Ms. Minal Ray is an 83 yo F with PMH of stage IIIb/IV CKD secondary to cardiorenal syndrome, hypertension, diabetes, chronic atrial fibrillation, CHF with right-sided heart failure admitted to the hospital with diuretic resistant volume overload and acute exacerbation of CHF. Nephrology consult requested for further management of above. EMR records were reviewed in detail during patient's visit. Minal was admitted yesterday with worsening shortness of breath, weight gain and hypoxia noted during outpatient cardiology visit and sent to ER for further evaluation. She has history of congestive heart failure mainly with right-sided heart failure in the setting of moderate to severe MR, TR. Over last few months she had multiple hospitalization for volume overload and NORM in the setting of improvement in volume status with high-dose diuretics. Admission lab was notable for stable kidney function, creatinine was 1.5, electrolyte was acceptable. Hemoglobin was 9.7. Hemoglobin A1c is 7.9. BNP of 414, EKG demonstrates afib , no acute ST-T wave changes. She reports hospitalization in November for NORM when she had left BC AV fistula placed but kidney function eventually improved and did not require dialysis. Recently her diuretics was increased to Bumex 4 mg twice a day as an outpatient however she continued to gain with and reported suboptimal response to diuretics. She reports more than 10 pounds weight gain over last few days. Chest x-ray and your showed pulmonary vascular congestion. Kidney function seems to be relatively stable at baseline. Initially she received IV Bumex without much improvement in volume status and started on Bumex drip at 0.5 mg/h and she reports increase urine output and improvement in respiratory status. She continues to have significant bilateral lower extremity edema. Has been using nasal cannula oxygen. Blood pressures staying relatively stable. 2D echo yesterday showing EF 55-60%, moderate to severe MR, TR, LVH. She has stage IIIb CKD, baseline creatinine seems to be somewhere around 1.5-1.6 thought to be secondary to cardiorenal syndrome, has been following with nephrology in [facility]. Urinalysis with low-grade proteinuria, microscopic hematuria in the setting of UTI. Renal ultrasound in 2022 showed bilateral normal kidney right kidney 11.9 and left kidney 10.7 cm. Has anemia in setting of CKD. History of diabetes for more than 20 years, seems suboptimally controlled. History of chronic A-fib has been on anticoagulation with Eliquis. Congestive heart failure with mainly right-sided heart failure, moderate to severe TR and MR and pulmonary hypertension, EF 55 to 60%. Was not on ABELINO inhibitor, ARB or SGLT2 inhibitors. She reports feeling slightly better, respiratory status improved. Allergies Allergy/AdvReac Type Severity Reaction Status Date / Time celecoxib AdvReac Intermediate VOMITING Verified 02/22/24 15:44 duloxetine AdvReac Intermediate VOMITING Verified 02/22/24 15:44 fosinopril AdvReac Intermediate VOMITING Verified 02/22/24 15:44 gabapentin AdvReac Intermediate VOMITING Verified 02/22/24 15:44 hydrocodone AdvReac Intermediate VOMITING Verified 02/22/24 15:44 milnacipran AdvReac Intermediate VOMITING Verified 02/22/24 15:44 nalbuphine AdvReac Intermediate VOMITING Verified 02/22/24 15:44 NSAIDS (Non-Steroidal AdvReac Intermediate VOMITING Verified 02/22/24 15:44 Anti-Inflamma salicylates AdvReac Intermediate VOMITING Verified 02/22/24 15:44 Sulfa (Sulfonamide AdvReac Intermediate VOMITING Verified 02/22/24 15:44 Antibiotics) trimethoprim AdvReac Intermediate VOMITING Verified 02/22/24 15:44 Pyrazolones AdvReac Intermediate VOMITING Uncoded 02/22/24 15:44 Home Medications Medication Instructions Recorded Confirmed Type ascorbic acid (vitamin C) 500 mg 500 mg PO BID 04/29/22 02/22/24 History capsule atorvastatin 80 mg tablet 0 mg PO DAILY 04/29/22 02/22/24 History blood sugar diagnostic (OneTouch 04/29/22 04/13/23 History Verio test strips) carvedilol 12.5 mg tablet 12.5 mg PO BID 04/29/22 02/22/24 History magnesium chloride 71.5 mg 71.5 mg PO DAILY 04/29/22 02/22/24 History (magnesium chloride) tablet,delayed release (Slow-Mag) mecobalamin (vitamin B12) 1,000 1,000 mcg PO DAILY 04/29/22 02/22/24 History mcg lozenges montelukast 10 mg tablet 10 mg PO DAILY 04/29/22 02/22/24 History pregabalin 50 mg capsule 50 mg PO BID 04/29/22 02/22/24 History aspirin 81 mg tablet,delayed 81 mg PO DAILY 08/26/22 02/22/24 History release calcium 500 mg (as 1 tab PO BID 08/26/22 02/22/24 History carbonate)-vitamin D3 5 mcg (200 unit) tablet (Oyster Shell Calcium-Vitamin D3) liraglutide 0.6 mg/0.1 mL (18 mg/3 1.8 mg subcut QAM 08/26/22 02/22/24 History mL) subcutaneous pen injector (Victoza 3-Manny) blood-glucose meter (ReliOn 10/06/22 04/13/23 History All-In-One Meter kit) insulin degludec 200 unit/mL (3 40 unit (0.2 mL) subcut QPM #18 mL 04/19/23 02/22/24 Rx mL) subcutaneous pen (Tresiba FlexTouch U-200 insulin) Novolog FlexPen U-100 Insulin 100 See Rx Instructions subcut TID #30 07/29/24 01/08/25 Rx unit/mL (3 mL) subcutaneous mL (insulin aspart U-100) apixaban 2.5 mg tablet (Eliquis) 2.5 mg PO BID 02/22/24 02/22/24 History bumetanide 2 mg tablet 2 mg PO BID 02/22/24 02/22/24 History clotrimazole-betamethasone 1 1 applic topical DAILY 02/22/24 02/22/24 History %-0.05 % topical cream ferrous gluconate 225 mg (27 mg 225 mg PO 3XWK 02/22/24 02/22/24 History iron) tablet levothyroxine 112 mcg tablet 112 mcg PO DAILY 02/22/24 02/22/24 History methenamine hippurate 1 gram tablet 0 g PO HS 02/22/24 02/22/24 History hahvqgyw-hea-tvuqj ac 400 1 tab PO DAILY 02/22/24 02/22/24 History mcg-calcium carb 500 mg-vit K1 20 mcg tablet (Women's 50 Plus Multivitamin) nystatin 100,000 unit/gram topical 100,000 unit topical DAILY 02/22/24 02/22/24 History powder pantoprazole 20 mg tablet,delayed 20 mg PO DAILY 02/22/24 02/22/24 History release Patient History Surgical History H/O: hysterectomy Hx of cholecystectomy History of appendectomy Family History Family/Other Cancer Diabetes Hypertension Lung disease Prostate cancer Renal cell carcinoma Social History Smoking Status: Never smoker Hx Alcohol Use: No Hx Substance Use: No Preferred Language: French Communication Ability: Effective Senior Art Director Required: No Beliefs That Will Affect Care: None marital status: Current Living Situation: Alone current occupational status: retired Feels Safe at Home: Yes Assistive Devices: Denture - Upper, Denture - Lower, Glasses, Scooter/Electric Scooter and Walker Review of Systems Review of Systems: All systems reviewed & are unremarkable except as noted in HPI & below Physical Exam Constitutional: WD/WN, vitals as above no acute distress Eyes: + anicteric sclerae Neck: normal visual inspection Respiratory: no respiratory distress Auscultation: + crackles Cardiovascular: Rate/Rhythm: + irregularly irregular Heart Sounds: normal S1 and normal S2 Extremities: + edema (3+ b/l LE edema) and + AV fistula (l eft BC AVF with bruit) Gastrointestinal (Abdomen): Inspection/Auscultation: abdomen normal to inspection and normal bowel sounds Percussion/Palpation: abdomen soft; abdomen nontender Musculoskeletal: Extremities: extremities normal to inspection Skin: no rashes, warm and dry Neurologic: no focal motor deficits Psychiatric: Orientation: alert and oriented x 3 Affect: euthymic affect Results & Data Vital Signs (Past 12 Hours) Vital Signs Temp Pulse Pulse Resp BP Pulse Ox O2 Del Method 02/23/24 11:44 36.6 C 72 18 108/68 99 Nasal Cannula 02/23/24 09:15 111/72 02/23/24 09:07 80 02/23/24 08:45 Nasal Cannula 02/23/24 08:02 36.7 C 99 H 18 91/56 L 93 Nasal Cannula 02/23/24 07:15 111 H 02/23/24 03:40 36.6 C 118 H 20 117/74 96 Nasal Cannula O2 Flow Rate 02/23/24 11:44 2 02/23/24 09:15 02/23/24 09:07 02/23/24 08:45 2 02/23/24 08:02 2 02/23/24 07:15 02/23/24 03:40 3 PG Care Time/CCT Total # of Minutes Spent Total Time Spent with Patient: Total time spent is greater than 50% in coordination of care (as documented) at patient's floor/unit and/or counseling patient: Coding Level of Care Code 33398 INT INP/OBS CARE 3/75MIN Diagnoses Right-sided congestive heart failure secondary to left-sided congestive heart failure I50.814 Anemia in chronic kidney disease (CKD) N18.9; D63.1 Chronic kidney disease, stage 3b N18.32 Acute on chronic congestive heart failure, unspecified heart failure type I50.9 Heart failure type: unspecified Diabetes mellitus type 2, uncontrolled E11.65 (4) Acute exacerbation of CHF (congestive heart failure) Heart failure type: unspecified Qualified Code(s): I50.9 - Heart failure, unspecified
[2024-02-23] MEDS ORDERED: cefTRIAXone SODIUM 1,000 MG/50 ML BAG IV SCH (13:30)
--- NOTE | 2024-02-23 14:34 | Pharmacy Report ---
Pharmacy Glycemic Short Note 2 - Date of Service February 23, 2024 - Glycemic Short BSG Results (Last 24 hours): 02/22/24 02/22/24 02/22/24 15:02 18:25 21:41 Glucose POC Glucose 72 126 H 125 H 02/22/24 02/23/24 02/23/24 23:35 00:33 06:37 Glucose 161 H POC Glucose 96 154 H 02/23/24 02/23/24 08:15 12:11 Glucose POC Glucose 144 H 138 H OUTPATIENT ANTIDIABETIC REGIMEN: * Insulin degludec 40 u qPM, NovoLog 8-12 u w/meals plus CF if >150, Victoza 1.8 mg qAM * Last A1c on 02/23/24 was 7.9. ASSESSMENT: * 83 yo F w/PMH of CAD, HTN, HLD, T2DM in which pharmacy has been consulted for glycemic management. * BSGs since yesterday relatively well controlled ranging from 72 to 161 * Pt refused yesterdays Lantus dose * Will employ a stress factor of around 2 PLAN FOR INPATIENT GLYCEMIC CONTROL: * Hold outpatient oral diabetes medications * Basal insulin * Lantus 20 units qPM * Bolus insulin * NovoLog per scale ACHS or Q6hrs while NPO * Goal Range: Low 120 mg/dL - High 160 mg/dL * Correction Factor: 30 mg/dL/unit * Nutritional / Prandial insulin per carb ratio of 1 unit per 7 grams CHO consumed
[2024-02-23] MEDS: cefTRIAXone SODIUM 2,000 MG/50 ML BAG IV SCH (15:15)
[2024-02-23 15:34] LABS: Calcium 8.8 mg/dl (8.6-10.3); Magnesium 2.2 mg/dl (1.7-2.4); Potassium 4.2 mmol/L (3.5-5.1)
[2024-02-23 15:40] LABS: BUN Creatinine Ratio 28.2 (10-20); Creatinine Clr Calc Pharmacy 34.3 ml/min
[2024-02-23] MEDS ORDERED: DIGOXIN 0.125 MG TAB PO SCH (16:00)
[2024-02-23 21:07] LABS: BUN Creatinine Ratio 24.5 (10-20); Calcium 8.8 mg/dl (8.6-10.3); Creatinine Clr Calc Pharmacy 28.5 ml/min; Magnesium 2.2 mg/dl (1.7-2.4); Potassium 4.1 mmol/L (3.5-5.1)
[2024-02-24 02:35] LABS: BUN Creatinine Ratio 25.5 (10-20); Calcium 8.4 mg/dl (8.6-10.3); Creatinine Clr Calc Pharmacy 29.7 ml/min; Magnesium 2.1 mg/dl (1.7-2.4); Potassium 4.1 mmol/L (3.5-5.1)
[2024-02-24 08:07] LABS: Hematocrit (blood only) 32.3 % (37.0-47.0); Hemoglobin 10.1 g/dl (12.0-16.0); Mean Corpuscular Hemoglobin 27.9 pg (25.0-34.0); Mean Corpuscular Hgb Conc 31.3 g/dL (32.0-36.0); Mean Corpuscular Volume 89.2 fL (80.0-100.0); Mean Platelet Volume 9.9 fL (9.4-12.4); Platelet Count 169 K/uL (130-400); RDW Coefficient of Variation 17.9 % (11.5-14.5); RDW Standard Deviation 58.4 fL (36.4-46.3); Red Blood Count 3.62 M/uL (4.20-5.40); White Blood Count 5.97 K/ul (4.8-10.8)
--- NOTE | 2024-02-24 08:28 | Hospitalist Progress Note ---
Date of Service February 24, 2024 Assessment & Plan (1) Acute exacerbation of CHF (congestive heart failure): (2) Atrial fibrillation: (3) Chronic kidney disease, stage 3b: (4) Type 2 diabetes with complication: Plan 83-year-old woman with HFpEF MR/MS, pulmonary hypertension, CKD-3b with brittle volume status admitted with heart failure exacerbation #acute on chronic HFpEF, right and left heart failure, mitral regurgitation/mitral stenosis, valvular pulmonary hypertension #atrial fibrillation with rapid ventricular response, likely permanent atrial fibrillation #CKD 3B with tenuous renal status, required dialysis in the fall has fistula #CAD with some chest tightness TTE this admission borderline LVEF 50-55%, moderate to severe mitral regurg and mitral stenosis, mild concentric LVH, mildly dilated RV and LV, severely dilated LA moderately dilated RA, moderate TR, RVSP 50-60 mm diuresed on bumex 0.5/h since yesterday midday, wt 276-->268 and -2700. Cr up and down between 1.5-2.0 on labs. Afternoon labs today - K/mag normal, Cr 2, has developed some contraction alkalosis with bicarb of 35 and had UOP 1500 for dayshift today - will reduce drip rate to 0.25/h if it can be run that low or go back to intermittent dosing 3 mg IV bid. Discussed with bedside nurse low dose digoxin load 02/22 and heart rate now well controlled. dig level not elevated. continue low dose oral digoxin while in hospital carvedilol held for hypotension 02/22 and to allow for diuresis - bp improved change Bumex to torsemide for discharge, for better GI absorption continue apixaban if chest tightness/angina persists, add nitrate and consider angiogram, troponins were negative on admission hypoxia and pulmonary hypertension - 2 step for home O2 prior to discharge #DM type 2. A1c 7.9 which is adequate for her advanced age Continue Tresiba or pharmacy to place on equivalent medication per hospital formulary Continue premeal/PRN insulin Pharmacy consulting for glycemic management BG reviewed and at goal 02/23 Chronic medical problems: HTN - carvedilol held currently GERD - continue protonix Hypothyroidism - chronic, continue levothyroxine 112mcg daily in BB DVT ppx - apixaban Admission and Anticipated Discharge Date Admission Date: February 22, 2024 Subjective good response to diuresis overnight feels better, less dyspnea, no chest pain or tightness still with massive edema to tops of thighs Physical Exam 2 Physical Exam: PHYSICAL EXAMINATION Last 24h vital signs reviewed, see documentation in flowsheet General: sitting up in the chair again HEENT: Normocephalic, atraumatic, pupils round and equal, sclerae anicteric, no conjunctival injection, moist mucus membranes Lungs: more normal WOB, crackles 1/[address] up posteriorly, diminished in bases. Heart: irreg irreg, systolic murmur. Abdomen: Soft, nontender, nondistended. Bowel sounds present. Extremities: Warm, dry, well-perfused. anasarca. pitting edema to tops of thighs - persists Neuro: Alert and oriented x 4, face symmetric, moves 4 extremities well Psych: Normal affect and behavior Results & Data Results & Data Vital Signs (Past 12 Hours) Vital Signs Temp Pulse Pulse Resp BP Pulse Ox O2 Del Method 02/24/24 08:00 97.6 F 74 16 110/65 95 Nasal Cannula 02/24/24 07:05 63 02/24/24 03:22 97.5 F L 76 18 105/64 91 Nasal Cannula 02/23/24 23:00 97.3 F L 71 18 107/70 97 Nasal Cannula 02/23/24 22:53 Nasal Cannula 02/23/24 22:01 53 L 02/23/24 21:03 97.5 F L 66 18 110/71 98 Nasal Cannula 02/23/24 20:39 73 O2 Flow Rate 02/24/24 08:00 3.5 02/24/24 07:05 02/24/24 03:22 3.5 02/23/24 23:00 4 02/23/24 22:53 2 02/23/24 22:01 02/23/24 21:03 2 02/23/24 20:39 Laboratory Results 02/24/24 07:47 02/24/24 15:57 PG Care Time/CCT Total # of Minutes Spent Total Time Spent with Patient: Total time spent is greater than 50% in coordination of care (as documented) at patient's floor/unit and/or counseling patient: Coding Level of Care Code 23541 SUB INP/OBS CARE 3/50MIN Diagnoses Acute on chronic congestive heart failure, unspecified heart failure type I50.9 Heart failure type: unspecified Atrial fibrillation I48.91 Atrial fibrillation type: unspecified Chronic kidney disease, stage 3b N18.32 Type 2 diabetes with complication E11.8 (1) Acute exacerbation of CHF (congestive heart failure) Heart failure type: unspecified Qualified Code(s): I50.9 - Heart failure, unspecified (2) Atrial fibrillation Atrial fibrillation type: unspecified Qualified Code(s): I48.91 - Unspecified atrial fibrillation
[2024-02-24 08:39] LABS: BUN Creatinine Ratio 28.1 (10-20); Calcium 8.3 mg/dl (8.6-10.3); Creatinine Clr Calc Pharmacy 32.1 ml/min; Potassium 4.1 mmol/L (3.5-5.1)
[2024-02-24 08:41] LABS: Albumin Level 3.5 gm/dl (3.4-5.0); BUN Creatinine Ratio 28.4 (10-20); Calcium 8.3 mg/dl (8.6-10.3); Creatinine Clr Calc Pharmacy 32.4 ml/min; Phosphorus 4.7 mg/dl (2.5-4.9)
[2024-02-24 09:01] LABS: Ferritin 246.6 ng/ml (8-388)
[2024-02-24] MEDS: cephALEXin 500 MG CAP PO SCH (09:13)
--- NOTE | 2024-02-24 09:25 | Cardiology Progress Note ---
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 Ray is diuresing better on the Bumex dripAdmit for IV diuresis. Her weight is down 4 kg. Her kidney function is a little better today than yesterday but still slightly above her baseline. She continues to be in a rate controlled afib. She has been in Afib for years and the size of her LA on the echo today, makes maintaining NSR very unlikely. She is maintained on low dose Eliquis for stroke prevention. She had described tightness in her chest on admission but is not having any chest discomfort today. She will need home oxygen at discharge for acute on chronic cor pulmonale and right sided CHF. She may also benefit from changing her loop diuretic over to Torsemide which has better bioavailability particularly with right sided CHF and gut edema as opposed to bumex or Lasix - this can be done at the time of DC however. I will also consider getter her started on Furoscix which is SQ Lasix infusion which is reported to have the same bioavailability as IV lasix without the renal compromise. Admission and Anticipated Discharge Date Admission Date: February 22, 2024 Subjective Ms. Ray feels well today. She is sitting up to breakfast and she notes that the transfer from bed to chair made her a bit short of breath but it is an improvement over admission when she was short of breath just talking. No chest pain. Rate controlled afib on the monitor. Review of Systems Review of Systems: All systems reviewed & are unremarkable except as noted in HPI & below Physical Exam Constitutional: WD/WN, vitals as above Respiratory: normal respiratory effort, lungs clear to auscultation Cardiovascular: Rate/Rhythm: + abnormal rate and + abnormal rhythm Heart Sounds: normal S1 and normal S2 Extremities: + edema Skin: no rashes, warm and dry Neurologic: moves all extremities and awake Psychiatric: A+Ox3, euthymic affect Results & Data Vital Signs (Past 12 Hours) Vital Signs Temp Pulse Pulse Resp BP Pulse Ox O2 Del Method 02/24/24 08:00 36.4 C 74 16 110/65 95 Nasal Cannula 02/24/24 07:05 63 02/24/24 03:22 36.4 C L 76 18 105/64 91 Nasal Cannula 02/23/24 23:00 36.3 C L 71 18 107/70 97 Nasal Cannula 02/23/24 22:53 Nasal Cannula 02/23/24 22:01 53 L O2 Flow Rate 02/24/24 08:00 3.5 02/24/24 07:05 02/24/24 03:22 3.5 02/23/24 23:00 4 02/23/24 22:53 2 02/23/24 22:01
--- NOTE | 2024-02-24 09:50 | Nephrology Progress Note ---
Date of Service February 24, 2024 Assessment & Plan (1) Right-sided congestive heart failure secondary to left-sided congestive heart failure: (2) Anemia in chronic kidney disease (CKD): (3) Chronic kidney disease, stage 3b: (4) Acute exacerbation of CHF (congestive heart failure): (5) Diabetes mellitus type 2, uncontrolled: Plan 83 yo f with stage IIIb CKD, b/l cr seems to be around 1.5-1.6 mg/dl which has been historically variable with volume status, secondary to cardiorenal syndrome with history of right-sided heart failure with pulmonary hypertension and severe MR and TR. admitted with acute exacerbation of CHF with failed outpatient diuretic and significant weight gain and shortness of breath. Kidney function seems to be staying at baseline, electrolyte acceptable. Started on Bumex drip and responding well, remained quite volume overloaded. Blood pressure relatively stable. volume status improved but remain hypervolemic on exam, net negative more than 2.5 L. Slight increase in creatinine noted, electrolyte acceptable.Hemoglobin 10.1. Iron deficiency. --Continue on Bumex drip, aim for net - 1 L/day, strict monitoring of intake and output. If continues to remain significantly net negative and volume status improved over next 24 hours, consider switching to torsemide. Will need to outpatient follow-up with heart failure clinic. --start on Venofer --Eventually she would benefit from ABELINO inhibitor/ARB and SGLT2 inhibitors --left arm nephrology precaution. Admission and Anticipated Discharge Date Admission Date: February 22, 2024 Marycarmen Fontaine was seen and evaluated this morning. She reports overall feeling much better, breathing is much easier and noticed slight improvement in lower extremity edema. Significant diuresis with Bumex drip, urine output more than 3.5 L net negative more than 2.5 L. Creatinine increased to 1.9 which actually could be close to her baseline, electrolyte acceptable. Hemoglobin 10.1. Blood pressure fair. Review of Systems Review of Systems: Detail ROS was done and pertinent positives and negatives are mentioned above. Physical Exam Constitutional: WD/WN, vitals as above no acute distress Eyes: + anicteric sclerae Respiratory: no respiratory distress Auscultation: + crackles Cardiovascular: Rate/Rhythm: + irregularly irregular Heart Sounds: normal S1 and normal S2 Extremities: + edema (3+ b/l LE edema) and + AV fistula (left BC AVF with bruit) Musculoskeletal: Extremities: extremities normal to inspection Skin: no rashes, warm and dry Neurologic: no focal motor deficits Psychiatric: Orientation: alert and oriented x 3 Affect: euthymic affect Results & Data Vital Signs (Past 12 Hours) Vital Signs Temp Pulse Pulse Resp BP Pulse Ox O2 Del Method 02/24/24 08:45 Nasal Cannula 02/24/24 08:00 36.4 C 74 16 110/65 95 Nasal Cannula 02/24/24 07:05 63 02/24/24 03:22 36.4 C L 76 18 105/64 91 Nasal Cannula 02/23/24 23:00 36.3 C L 71 18 107/70 97 Nasal Cannula 02/23/24 22:53 Nasal Cannula 02/23/24 22:01 53 L O2 Flow Rate 02/24/24 08:45 3.5 02/24/24 08:00 3.5 02/24/24 07:05 02/24/24 03:22 3.5 02/23/24 23:00 4 02/23/24 22:53 2 02/23/24 22:01 PG Care Time/CCT Total # of Minutes Spent Total Time Spent with Patient: Total time spent is greater than 50% in coordination of care (as documented) at patient's floor/unit and/or counseling patient: Coding Level of Care Code 26620 SUB INP/OBS CARE 235MIN Diagnoses Right-sided congestive heart failure secondary to left-sided congestive heart failure I50.814 Anemia in chronic kidney disease (CKD) N18.9; D63.1 Chronic kidney disease, stage 3b N18.32 Acute on chronic congestive heart failure, unspecified heart failure type I50.9 Heart failure type: unspecified Diabetes mellitus type 2, uncontrolled E11.65 (4) Acute exacerbation of CHF (congestive heart failure) Heart failure type: unspecified Qualified Code(s): I50.9 - Heart failure, unspecified
[2024-02-24] MEDS: IRON SUCROSE 200 MG in SODIUM CHLORIDE 0.9% 100 ML IV SCH (10:48)
--- NOTE | 2024-02-24 15:04 | Pharmacy Report ---
Pharmacy Glycemic Short Note 2 - Date of Service February 24, 2024 - Glycemic Short BSG Results (Last 24 hours): 02/23/24 02/23/24 02/23/24 15:03 17:05 20:23 Glucose 139 H 126 H POC Glucose 127 H 02/23/24 02/24/24 02/24/24 20:33 01:58 07:47 Glucose 105 H 103 H POC Glucose 150 H 02/24/24 02/24/24 02/24/24 07:47 08:26 12:15 Glucose 105 H POC Glucose 105 H 167 H OUTPATIENT ANTIDIABETIC REGIMEN: * Insulin degludec 40 u qPM, NovoLog 8-12 u w/meals plus CF if >150, Victoza 1.8 mg qAM * Last A1c on 02/23/24 was 7.9. ASSESSMENT: 02/24/24 * Pt's BSG well controlled today ranging from 105 to 167, will make no changes. 02/23/24 * 83 yo F w/PMH of CAD, HTN, HLD, T2DM in which pharmacy has been consulted for glycemic management. * BSGs since yesterday relatively well controlled ranging from 72 to 161 * Pt refused yesterdays Lantus dose * Will employ a stress factor of around 2 PLAN FOR INPATIENT GLYCEMIC CONTROL: * Hold outpatient oral diabetes medications * Basal insulin * Lantus 20 units qPM * Bolus insulin * NovoLog per scale ACHS or Q6hrs while NPO * Goal Range: Low 120 mg/dL - High 160 mg/dL * Correction Factor: 30 mg/dL/unit * Nutritional / Prandial insulin per carb ratio of 1 unit per 7 grams CHO consumed
[2024-02-24] MEDS: DIGOXIN 0.125 MG TAB PO SCH (16:00)
[2024-02-24 16:41] LABS: BUN Creatinine Ratio 23.5 (10-20); Calcium 8.9 mg/dl (8.6-10.3); Creatinine Clr Calc Pharmacy 27.4 ml/min; Magnesium 2.1 mg/dl (1.7-2.4); Potassium 4.3 mmol/L (3.5-5.1)
[2024-02-25 07:42] LABS: Albumin Level 3.5 gm/dl (3.4-5.0); BUN Creatinine Ratio 30.2 (10-20); Calcium 8.5 mg/dl (8.6-10.3); Creatinine Clr Calc Pharmacy 31.3 ml/min; Phosphorus 4.6 mg/dl (2.5-4.9); Potassium 4.1 mmol/L (3.5-5.1)
--- NOTE | 2024-02-25 10:09 | Hospitalist Progress Note ---
Date of Service February 25, 2024 Assessment & Plan (1) Acute exacerbation of CHF (congestive heart failure): (2) Atrial fibrillation: (3) Chronic kidney disease, stage 3b: (4) Type 2 diabetes with complication: Plan 83-year-old woman with HFpEF MR/MS, pulmonary hypertension, CKD-3b with brittle volume status admitted with heart failure exacerbation #acute on chronic HFpEF, right and left heart failure, mitral regurgitation/mitral stenosis, valvular pulmonary hypertension #atrial fibrillation with rapid ventricular response, likely permanent atrial fibrillation #CKD 3B with tenuous renal status, required dialysis in the fall has fistula #CAD with some chest tightness seems to have resolved TTE this admission borderline LVEF 50-55%, moderate to severe mitral regurg and mitral stenosis, mild concentric LVH, mildly dilated RV and LV, severely dilated LA moderately dilated RA, moderate TR, RVSP 50-60 mm has been diuresing well on Bumex drip, rate reduced to 0.26 mg an hour yesterday afternoon with continued good effect and resolution of contraction alkalosis on today's labs. She is at -2400 mL since yesterday weight decreased from 268 down to 259 with improvement in edema of her extremities as well as improvement in pulmonary edema, remains hypoxic with intermittent dyspnea. Remains volume overloaded and will continue to benefit from intravenous diuresis. Labs reviewed and potassium is normal at 4.1 magnesium is normal at 2.1 creatinine has improved to 1.72, continues serial chemistry panel while on intravenous diuretics low dose digoxin load 02/22 and heart rate now well controlled. dig level not elevated. continue low dose oral digoxin while in hospital carvedilol held for hypotension 02/22 and to allow for diuresis - bp improved but still sometimes borderline change Bumex to torsemide for discharge, for better GI absorption continue apixaban if chest tightness/angina persists, add nitrate and consider angiogram, troponins were negative on admission, no further chest tightness or chest pain at this point hypoxia and pulmonary hypertension - 2 step for home O2 prior to discharge she is having some nasal congestion and dryness today, does not sound too much like of viral syndrome, added humidifier to oxygen and nasal saline as needed, also Zyrtec 5 mg daily which usually helps her at home #DM type 2. A1c 7.9 which is adequate for her advanced age Continue Tresiba or pharmacy to place on equivalent medication per hospital formulary Continue premeal/PRN insulin Pharmacy consulting for glycemic management BG reviewed and at goal 02/24 Chronic medical problems: HTN - carvedilol held currently GERD - continue protonix Hypothyroidism - chronic, continue levothyroxine 112mcg daily in BB DVT ppx - apixaban Admission and Anticipated Discharge Date Admission Date: February 22, 2024 Subjective doing very well with reduction in edema, did have some dyspnea at rest this morning was fairly brief and resolved, has noticed some nasal congestion she thinks is contributing to dyspnea no sore throat or coughing leg edema progressively improving Physical Exam 2 Physical Exam: PHYSICAL EXAMINATION Last 24h vital signs reviewed, see documentation in flowsheet General: sitting up in bed HEENT: Normocephalic, atraumatic, pupils round and equal, sclerae anicteric, no conjunctival injection, moist mucus membranes Lungs: nonlabored, crackles 1/[address] up posteriorly, diminished in bases. no wheezing no coughing observed Heart: irreg irreg, systolic murmur. Abdomen: Soft, nontender, nondistended. Bowel sounds present. Extremities: Warm, dry, well-perfused. edema of thighs significantly improved pitting edema persists at least to the knees, overall much improved Neuro: Alert and oriented x 4, face symmetric, moves 4 extremities well Psych: Normal affect and behavior Results & Data Results & Data Vital Signs (Past 12 Hours) Vital Signs Temp Pulse Resp BP Pulse Ox O2 Del Method O2 Flow Rate 02/25/24 07:52 Nasal Cannula 3.5 02/25/24 07:52 97.7 F 70 18 96/49 L 94 Nasal Cannula 2 02/25/24 03:35 97.4 F L 59 L 18 101/62 95 Nasal Cannula 2 02/24/24 23:11 97.8 F 79 18 126/65 99 Nasal Cannula 2 Laboratory Results 02/24/24 07:47 02/25/24 06:13 PG Care Time/CCT Total # of Minutes Spent Total Time Spent with Patient: Total time spent is greater than 50% in coordination of care (as documented) at patient's floor/unit and/or counseling patient: Coding Level of Care Code 77393 SUB INP/OBS CARE 3/50MIN Diagnoses Acute on chronic congestive heart failure, unspecified heart failure type I50.9 Heart failure type: unspecified Atrial fibrillation I48.91 Atrial fibrillation type: unspecified Chronic kidney disease, stage 3b N18.32 Type 2 diabetes with complication E11.8 (1) Acute exacerbation of CHF (congestive heart failure) Heart failure type: unspecified Qualified Code(s): I50.9 - Heart failure, unspecified (2) Atrial fibrillation Atrial fibrillation type: unspecified Qualified Code(s): I48.91 - Unspecified atrial fibrillation
--- NOTE | 2024-02-25 10:29 | Nephrology Progress Note ---
Date of Service February 25, 2024 Assessment & Plan (1) Chronic kidney disease, stage 3b: Plan: Baseline creatinine ~1.5-1.6 mg/dL. Noted fluctuations in creatinine consistent with cardiorenal syndrome (right-sided heart failure with pulmonary hypertension and severe MR and TR). Diuresing well. Remains on Bumex gtt with oversight per cardiology. Will likely be able to transition off gtt within next 24 hours. Creatinine stable/slightly improved. Electrolytes acceptable. Medications are appropriate for kidney function. There is no indication for OXYHYDROGEN WELDER at this time. Document strict I/O's. Repeat BMP tomorrow AM. Defer ABELINO/ARB or SGLT2i now given active diuresis, hypotension, and NORM. (2) Acute exacerbation of CHF (congestive heart failure): Plan: Clinically improving. Appreciate cardiology consultation. Remains on Bumex gtt but likely will tolerate transition to PO diuretics within next 24 hours. (3) Anemia in chronic kidney disease (CKD): Plan: Chronic, stable. Repeat H/H tomorrow AM. (4) Diabetes mellitus type 2, uncontrolled: Admission and Anticipated Discharge Date Admission Date: February 22, 2024 Subjective No acute events overnight. Minal was sitting in her bedside chair during evaluation this AM. Edema is improving. She feels well overall. Some mild JOSHI persists. Shortness of breath is improving. No lightheadedness or dizziness. She denies chest pains or palpitations. Review of Systems Review of Systems: All systems reviewed & are unremarkable except as noted in HPI & below Results & Data Vital Signs (Past 12 Hours) Vital Signs Temp Pulse Resp BP Pulse Ox O2 Del Method O2 Flow Rate 02/25/24 07:52 Nasal Cannula 3.5 02/25/24 07:52 36.5 C 70 18 96/49 L 94 Nasal Cannula 2 02/25/24 03:35 36.3 C L 59 L 18 101/62 95 Nasal Cannula 2 02/24/24 23:11 36.6 C 79 18 126/65 99 Nasal Cannula 2 Laboratory Results Laboratory Results - last 24 hr 02/24/24 02/24/24 02/24/24 12:15 15:57 17:31 Sodium 140 Potassium 4.3 Chloride 99 Carbon Dioxide 34 H Anion Gap 7 BUN 47 H Creatinine 2.00 H D Est Cr Clr Drug Dosing 27.4 eGFR 24.64 BUN/Creatinine Ratio 23.5 H Glucose 102 H POC Glucose 167 H 80 Calcium 8.9 Phosphorus Magnesium 2.1 Albumin 02/24/24 02/25/24 02/25/24 20:25 06:13 08:08 Sodium 139 Potassium 4.1 Chloride 99 Carbon Dioxide 32 Anion Gap 8 BUN 52 H Creatinine 1.72 H Est Cr Clr Drug Dosing 31.3 eGFR 29.52 BUN/Creatinine Ratio 30.2 H Glucose 164 H POC Glucose 153 H 151 H Calcium 8.5 L Phosphorus 4.6 Magnesium Albumin 3.5 PG Care Time/CCT Total # of Minutes Spent Total Time Spent with Patient: Total time spent is greater than 50% in coordination of care (as documented) at patient's floor/unit and/or counseling patient: Coding Level of Care Code 85984 SUB INP/OBS CARE 3/50MIN Diagnoses Chronic kidney disease, stage 3b N18.32 Acute on chronic congestive heart failure, unspecified heart failure type I50.9 Heart failure type: unspecified Anemia in chronic kidney disease (CKD) N18.9; D63.1 Diabetes mellitus type 2, uncontrolled E11.65 (2) Acute exacerbation of CHF (congestive heart failure) Heart failure type: unspecified Qualified Code(s): I50.9 - Heart failure, unspecified
[2024-02-25] MEDS: CETIRIZINE HCL 10 MG TABLET PO SCH (10:49)
--- NOTE | 2024-02-25 15:56 | Cardiology Progress Note ---
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 Acute on chronic heart failure with preserved EF: Still appears hypervolemic but diuresing with net negative fluid balance of nearly 7 L since admission. Continue Bumex drip. May be able to transition to oral diuretic later this weekend (torsemide). Could consider SGLT2 inhibitor in the future. 2. Mitral regurgitation and stenosis: Can be continued to be followed by her primary lard tub washer, Dr. Alvarenga. Mitral regurgitation may appear improved following diuresis. 3. Tricuspid regurgitation: Follow in the outpatient setting. 4. Atrial fibrillation: Heart rate reasonably controlled. Will check a digoxin level tomorrow just before her next dose. Continue carvedilol. Continue anticoagulation for stroke risk reduction. Monitor CBC. 5. Pulmonary hypertension: Likely due to heart failure and valvular heart disease. 6. CAD and prior PCI: No angina today. Continue aspirin 81 mg daily. Continue high intensity statin therapy. Ischemic evaluation is being contemplated by her primary lard tub washer. 7. Disposition: Cardiology will continue to follow. Admission and Anticipated Discharge Date Admission Date: February 22, 2024 Subjective Patient was seen this morning. She believes that her breathing has improved. Her edema has improved significantly. She is not yet back to baseline. She still has occasional orthopnea. She denies chest pain, syncope, near syncope, or bleeding. She was unaccompanied. Physical Exam Physical Exam: Gen.: No acute distress. Alert. HEENT: Anicteric sclera. Neck: Thick neck. Cardiac: Irregularly irregular. Normal rate. Normal S1-S2. 1/6 systolic murmur. Pulmonary: Clear to auscultation bilaterally without wheezes, rales, or rhonchi. Abdomen: Soft, nontender, nondistended, with normoactive bowel sounds. No bruits noted. Extremities: 2+ radial pulses bilaterally. 2+ posterior tibialis pulses bilaterally. 1+ bilateral lower extremity edema. No cyanosis. Psychiatric: Affect appears appropriate. Results & Data Vital Signs (Past 12 Hours) Vital Signs Temp Pulse Pulse Resp BP Pulse Ox O2 Del Method 02/25/24 15:41 65 02/25/24 13:00 84 02/25/24 11:27 36.8 C 66 18 109/68 94 Nasal Cannula 02/25/24 11:05 97 Nasal Cannula 02/25/24 07:52 Nasal Cannula 02/25/24 07:52 36.5 C 70 18 96/49 L 94 Nasal Cannula O2 Flow Rate 02/25/24 15:41 02/25/24 13:00 02/25/24 11:27 2 02/25/24 11:05 2 02/25/24 07:52 3.5 02/25/24 07:52 2 Intake & Output 02/23/24 02/24/24 02/25/24 02/26/24 06:59 06:59 06:59 06:59 Intake Total 800 / 800 1170.442 / 1170.442 110 / 110 Output Total 1050 / 1050 3550 / 3550 3600 / 3600 800 / 800 Balance -1050 / -1050 -2750 / -2750 -2429.558 / -2429.558 -690 / -690 Weight 276 lb 10.882 oz 268 lb 1.314 oz 259 lb 11.272 oz Laboratory Results Laboratory Results - last 24 hr 02/24/24 02/24/24 02/24/24 15:57 17:31 20:25 Sodium 140 Potassium 4.3 Chloride 99 Carbon Dioxide 34 H Anion Gap 7 BUN 47 H Creatinine 2.00 H D Est Cr Clr Drug Dosing 27.4 eGFR 24.64 BUN/Creatinine Ratio 23.5 H Glucose 102 H POC Glucose 80 153 H Calcium 8.9 Phosphorus Magnesium 2.1 Albumin 02/25/24 02/25/24 02/25/24 06:13 08:08 12:16 Sodium 139 Potassium 4.1 Chloride 99 Carbon Dioxide 32 Anion Gap 8 BUN 52 H Creatinine 1.72 H Est Cr Clr Drug Dosing 31.3 eGFR 29.52 BUN/Creatinine Ratio 30.2 H Glucose 164 H POC Glucose 151 H 177 H Calcium 8.5 L Phosphorus 4.6 Magnesium Albumin 3.5 Diagnostic Findings Labs reviewed and notable for abnormal but stable renal function, normal potassium, mild anemia. Echo 02/22/2024 report reviewed: Low normal LV systolic function. EF 50-55%. No regional wall motion abnormalities. Mild LVH. Mildly dilated right ventricle with borderline reduced systolic function. Severe left and moderate right atrial dilation. Moderate to severe MR. Moderate to severe MS with heavy MAC. Moderate TR. Pulmonary hypertension. Telemetry personally reviewed: Atrial fibrillation. Nephrology note reviewed. Medications Administered Current Inpatient Medications Acetaminophen (Acetaminophen 325 Mg Tab) 650 mg PO Q4H PRN PRN Reason: Pain or Fever Stop: 03/23/24 17:17 Last Admin: 02/23/24 21:59 Dose: 650 mg Al Hydrox/Mg Hydrox/Simethicone (Aluminum/Magnesium Susp 30 Ml Udc) 15 ml PO Q4H PRN PRN Reason: Dyspepsia Stop: 03/23/24 17:17 Apixaban (Apixaban 2.5 Mg Tab) 2.5 mg PO BID [facility] Stop: 03/23/24 20:59 Last Admin: 02/25/24 09:35 Dose: 2.5 mg Aspirin (Aspirin 81 Mg Ectab) 81 mg PO DAILY [facility] Stop: 03/24/24 08:59 Last Admin: 02/25/24 09:35 Dose: 81 mg Atorvastatin Calcium (Atorvastatin 40 Mg Tab) 80 mg PO DAILY [facility] Stop: 03/24/24 08:59 Last Admin: 02/25/24 09:35 Dose: 80 mg Carvedilol (Carvedilol 12.5 Mg Tab) 12.5 mg PO BIDM [facility] Stop: 03/24/24 07:59 Last Admin: 02/23/24 08:36 Dose: Not Given Cephalexin HCl (Cephalexin 500 Mg Cap) 500 mg PO BID [facility]; Protocol Stop: 02/28/24 08:59 Last Admin: 02/25/24 09:36 Dose: 500 mg Cetirizine HCl (Cetirizine Hcl 10 Mg Tablet) 5 mg PO QAM [facility] Stop: 03/26/24 10:14 Last Admin: 02/25/24 10:49 Dose: 5 mg Dextrose (Dextrose 50% 50 Ml Syringe) 25 - 50 ml IV UD PRN; Protocol PRN Reason: Hypoglycemia Protocol Stop: 03/23/24 17:17 Digoxin (Digoxin 0.125 Mg Tab) 0.125 mg PO DAILY@1600 [facility] Stop: 03/25/24 15:59 Last Admin: 02/25/24 15:41 Dose: 0.125 mg Glucagon (Glucagon For Inj 1 Mg Vial) 1 mg SQ UD PRN; Protocol PRN Reason: Hypoglycemia Protocol Stop: 03/23/24 17:17 Glucose (Glucose 40% Gel 15 Gm Tube) 15 - 30 gm PO UD PRN; Protocol PRN Reason: Hypoglycemia Protocol Stop: 03/23/24 17:17 Glucose (Glucose 10 Tab/Tube) 4 - 8 tab PO UD PRN; Protocol PRN Reason: Hypoglycemia Protocol Stop: 03/23/24 17:17 Bumetanide 2 mg/ Syringe 8 mls @ 4 mls/min IV BID@0900,1700 [facility] Stop: 03/23/24 17:29 Last Admin: 02/22/24 18:53 Dose: 4 mls/min Bumetanide 10 mg/ Dextrose 50 mls @ 1.3 mls/hr IV .Q24H [facility] Stop: 03/24/24 08:29 Last Admin: 02/25/24 05:57 Dose: 0.26 mg/hr, 1.3 mls/hr Iron Sucrose 200 mg/ Sodium (Chloride) 110 mls @ 220 mls/hr IV DAILY [facility] Stop: 02/28/24 10:14 Last Infusion: 02/25/24 11:19 Dose: Infused Insulin Aspart (Insulin Aspart Per Unit Charge) 0 units SC ACHS [facility] Stop: 03/23/24 17:17 Last Admin: 02/25/24 13:17 Dose: 5 units Insulin Glargine (Lantus Per Unit Charge) 20 units SQ QPM [facility] Stop: 03/23/24 20:59 Last Admin: 02/24/24 21:34 Dose: 20 units Levothyroxine Sodium (Levothyroxine Sodium 112 Mcg Tablet) 112 mcg PO DAILYBB [facility] Stop: 03/24/24 06:29 Last Admin: 02/25/24 05:40 Dose: 112 mcg Magnesium Hydroxide (Magnesium Hydroxide Susp 30 Ml Udc) 30 ml PO Q12H PRN PRN Reason: Constipation Stop: 03/23/24 17:17 Miscellaneous (Carbohydrates For Hypoglycemia ) 15 - 30 gm PO UD PRN PRN Reason: Hypoglycemia Protocol Stop: 03/23/24 17:17 Miscellaneous Information (Pharmacy Glycemic Mgmt Consult) 1 each N/A UD PRN PRN Reason: Consult Stop: 03/23/24 17:17 Montelukast Sodium (Montelukast Sodium 10 Mg Tablet) 10 mg PO DAILY [facility] Stop: 03/24/24 08:59 Last Admin: 02/25/24 09:36 Dose: 10 mg Ondansetron HCl (Ondansetron Inj 2 Mg/Ml 2 Ml Vial) 4 mg IV Q6H PRN PRN Reason: Nausea Stop: 03/23/24 17:17 Last Admin: 02/22/24 23:28 Dose: 4 mg Pantoprazole Sodium (Pantoprazole 40 Mg Tab) 40 mg PO DAILY [facility] Stop: 03/24/24 08:59 Last Admin: 02/25/24 09:36 Dose: 40 mg Pregabalin (Pregabalin 50 Mg Cap) 50 mg PO BID [facility] Stop: 03/23/24 20:59 Last Admin: 02/25/24 09:35 Dose: 50 mg Sodium Chloride (Sodium Chloride 0.65% Na Soln 45 Ml ([place])) 2 sprays NA PRN PRN PRN Reason: nasal congestion or dryness Stop: 03/26/24 10:01 PG Care Time/CCT Total # of Minutes Spent Total Time Spent with Patient: Total time spent is greater than 50% in coordination of care (as documented) at patient's floor/unit and/or counseling patient: Coding Level of Care Code 42276 SUB INP/OBS CARE 3/50MIN Diagnoses Acute on chronic heart failure with preserved ejection fraction (HFpEF) I50.33 Coronary artery disease I25.10 Mitral regurgitation and mitral stenosis I05.2 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
[2024-02-25] MEDS: SODIUM CHLORIDE 0.65% NA SOLN 45 ML (OCEAN) PRN (20:29)
[2024-02-25] MEDS: MICONAZOLE NITRATE POWDER 85 GM EXT PRN (20:30)
[2024-02-26 07:18] LABS: Albumin Level 3.6 gm/dl (3.4-5.0); BUN Creatinine Ratio 32.9 (10-20); Calcium 8.8 mg/dl (8.6-10.3); Creatinine Clr Calc Pharmacy 33.1 ml/min; Phosphorus 4.6 mg/dl (2.5-4.9); Potassium 3.8 mmol/L (3.5-5.1)
[2024-02-26] MEDS: POTASSIUM CHLORIDE CRTAB 20 MEQ TABCR PO ONE (08:13)
--- NOTE | 2024-02-26 11:26 | Cardiology Progress Note ---
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 Acute on chronic heart failure with preserved EF: Still appears hypervolemic but diuresing with net negative fluid balance of nearly 7.9 L since admission. Bumex drip transitioned on 02/26/2024 to Bumex 3 mg IV twice daily by other providers. Continue diuresis with net negative fluid balance goal of approximately 1-2 L daily. She will likely be discharged home in the future on torsemide as per her primary tip banding machine operator. Consider SGLT2 inhibitor at discharge, if no contraindication. 2. Mitral regurgitation and stenosis: Can be continued to be followed by her primary tip banding machine operator, Dr. Alvarenga. 3. Tricuspid regurgitation: Follow in the outpatient setting. 4. Atrial fibrillation: Heart rate reasonably controlled. Will check a digoxin level today just before her next dose, which can be followed by her primary tip banding machine operator tomorrow. Continue carvedilol. Continue anticoagulation for stroke risk reduction. Monitor CBC. 5. Pulmonary hypertension: Likely due to heart failure and valvular heart disease. 6. CAD and prior PCI: No angina today. Continue aspirin 81 mg daily. Continue high intensity statin therapy. Ischemic evaluation is being contemplated by her primary tip banding machine operator. 7. Disposition: Dr. Alvarenga, her primary tip banding machine operator, will resume her cardiology care tomorrow. Patient care communicated with Dr. Liu, of the primary hospitalist service. Admission and Anticipated Discharge Date Admission Date: February 22, 2024 Subjective She believes that her breathing is stable compared to yesterday, but significantly improved since presentation. She denies chest pain, palpitations, melena, hematochezia, hematuria, syncope, or near syncope. Her Bumex drip was discontinued earlier today by other providers and she is now on Bumex 3 mg IV twice daily. She was unaccompanied. Physical Exam Physical Exam: Gen.: No acute distress. Alert. HEENT: Anicteric sclera. Neck: Thick neck. Cardiac: Irregularly irregular. Normal rate. Normal S1-S2. 1/6 systolic murmur. Pulmonary: Clear to auscultation bilaterally without wheezes, rales, or rhonchi. Abdomen: Soft, nontender, nondistended, with normoactive bowel sounds. No bruits noted. Extremities: 2+ radial pulses bilaterally. 2+ posterior tibialis pulses bilaterally. 1+ bilateral lower extremity edema. No cyanosis. Results & Data Vital Signs (Past 12 Hours) Vital Signs Temp Pulse Resp BP Pulse Ox O2 Del Method O2 Flow Rate 02/26/24 09:16 93 Nasal Cannula 1 02/26/24 07:56 36.3 C L 71 18 104/50 L 93 Nasal Cannula 2 02/26/24 03:44 36.6 C 75 18 126/64 95 Nasal Cannula 2 Intake & Output 02/24/24 02/25/24 02/26/24 02/27/24 06:59 06:59 06:59 06:59 Intake Total 800 / 800 1170.442 / 1170.442 681.915 / 681.915 112.123 / 112.123 Output Total 3550 / 3550 3600 / 3600 2450 / 2450 Balance -2750 / -2750 -2429.558 / -2429.558 -1768.085 / -1768.085 112.123 / 112.123 Weight 268 lb 1.314 oz 259 lb 11.272 oz 256 lb 6.362 oz Laboratory Results Laboratory Results - last 24 hr 02/25/24 02/25/24 02/25/24 12:16 17:13 20:09 Sodium Potassium Chloride Carbon Dioxide Anion Gap BUN Creatinine Est Cr Clr Drug Dosing eGFR BUN/Creatinine Ratio Glucose POC Glucose 177 H 169 H 147 H Calcium Phosphorus Albumin 02/26/24 02/26/24 05:54 08:18 Sodium 142 Potassium 3.8 Chloride 98 Carbon Dioxide 35 H Anion Gap 9 BUN 53 H Creatinine 1.61 H Est Cr Clr Drug Dosing 33.1 eGFR 31.96 BUN/Creatinine Ratio 32.9 H Glucose 100 H POC Glucose 117 H Calcium 8.8 Phosphorus 4.6 Albumin 3.6 Diagnostic Findings Labs reviewed and notable for stable renal function, normal potassium. Telemetry personally reviewed: Atrial fibrillation with acceptable heart rates. Nephrology note reviewed from 02/26/2024. Medications Administered Current Inpatient Medications Acetaminophen (Acetaminophen 325 Mg Tab) 650 mg PO Q4H PRN PRN Reason: Pain or Fever Stop: 03/23/24 17:17 Last Admin: 02/25/24 20:29 Dose: 650 mg Al Hydrox/Mg Hydrox/Simethicone (Aluminum/Magnesium Susp 30 Ml Udc) 15 ml PO Q4H PRN PRN Reason: Dyspepsia Stop: 03/23/24 17:17 Apixaban (Apixaban 2.5 Mg Tab) 2.5 mg PO BID [facility] Stop: 03/23/24 20:59 Last Admin: 02/26/24 08:14 Dose: 2.5 mg Aspirin (Aspirin 81 Mg Ectab) 81 mg PO DAILY [facility] Stop: 03/24/24 08:59 Last Admin: 02/26/24 08:13 Dose: 81 mg Atorvastatin Calcium (Atorvastatin 40 Mg Tab) 80 mg PO DAILY [facility] Stop: 03/24/24 08:59 Last Admin: 02/26/24 08:14 Dose: 80 mg Carvedilol (Carvedilol 12.5 Mg Tab) 12.5 mg PO BIDM [facility] Stop: 03/24/24 07:59 Last Admin: 02/23/24 08:36 Dose: Not Given Cephalexin HCl (Cephalexin 500 Mg Cap) 500 mg PO BID [facility]; Protocol Stop: 02/28/24 08:59 Last Admin: 02/26/24 08:14 Dose: 500 mg Cetirizine HCl (Cetirizine Hcl 10 Mg Tablet) 5 mg PO QAM [facility] Stop: 03/26/24 10:14 Last Admin: 02/26/24 08:14 Dose: 5 mg Dextrose (Dextrose 50% 50 Ml Syringe) 25 - 50 ml IV UD PRN; Protocol PRN Reason: Hypoglycemia Protocol Stop: 03/23/24 17:17 Digoxin (Digoxin 0.125 Mg Tab) 0.125 mg PO DAILY@1600 [facility] Stop: 03/25/24 15:59 Last Admin: 02/25/24 15:41 Dose: 0.125 mg Glucagon (Glucagon For Inj 1 Mg Vial) 1 mg SQ UD PRN; Protocol PRN Reason: Hypoglycemia Protocol Stop: 03/23/24 17:17 Glucose (Glucose 40% Gel 15 Gm Tube) 15 - 30 gm PO UD PRN; Protocol PRN Reason: Hypoglycemia Protocol Stop: 03/23/24 17:17 Glucose (Glucose 10 Tab/Tube) 4 - 8 tab PO UD PRN; Protocol PRN Reason: Hypoglycemia Protocol Stop: 03/23/24 17:17 Bumetanide 2 mg/ Syringe 8 mls @ 4 mls/min IV BID@0900,1700 [facility] Stop: 03/23/24 17:29 Last Admin: 02/22/24 18:53 Dose: 4 mls/min Iron Sucrose 200 mg/ Sodium (Chloride) 110 mls @ 220 mls/hr IV DAILY [facility] Stop: 02/28/24 10:14 Last Infusion: 02/26/24 08:50 Dose: Infused Bumetanide 3 mg/ Syringe 12 mls @ 4 mls/min IV BID@0900,1700 [facility] Stop: 03/27/24 08:59 Insulin Aspart (Insulin Aspart Per Unit Charge) 0 units SC ACHS [facility] Stop: 03/23/24 17:17 Last Admin: 02/26/24 09:11 Dose: 5 units Insulin Glargine (Lantus Per Unit Charge) 20 units SQ QPM [facility] Stop: 03/23/24 20:59 Last Admin: 02/25/24 20:30 Dose: 20 units Levothyroxine Sodium (Levothyroxine Sodium 112 Mcg Tablet) 112 mcg PO DAILYBB [facility] Stop: 03/24/24 06:29 Last Admin: 02/26/24 06:30 Dose: 112 mcg Magnesium Hydroxide (Magnesium Hydroxide Susp 30 Ml Udc) 30 ml PO Q12H PRN PRN Reason: Constipation Stop: 03/23/24 17:17 Miconazole Nitrate (Miconazole Nitrate Powder 85 Gm) 1 appln EXT BID PRN PRN Reason: Affected Skin Folds Stop: 03/26/24 17:40 Last Admin: 02/25/24 20:30 Dose: 1 appln Miscellaneous (Carbohydrates For Hypoglycemia ) 15 - 30 gm PO UD PRN PRN Reason: Hypoglycemia Protocol Stop: 03/23/24 17:17 Miscellaneous Information (Pharmacy Glycemic Mgmt Consult) 1 each N/A UD PRN PRN Reason: Consult Stop: 03/23/24 17:17 Montelukast Sodium (Montelukast Sodium 10 Mg Tablet) 10 mg PO DAILY [facility] Stop: 03/24/24 08:59 Last Admin: 02/26/24 08:14 Dose: 10 mg Ondansetron HCl (Ondansetron Inj 2 Mg/Ml 2 Ml Vial) 4 mg IV Q6H PRN PRN Reason: Nausea Stop: 03/23/24 17:17 Last Admin: 02/22/24 23:28 Dose: 4 mg Pantoprazole Sodium (Pantoprazole 40 Mg Tab) 40 mg PO DAILY [facility] Stop: 03/24/24 08:59 Last Admin: 02/26/24 08:14 Dose: 40 mg Pregabalin (Pregabalin 50 Mg Cap) 50 mg PO BID [facility] Stop: 03/23/24 20:59 Last Admin: 02/26/24 08:13 Dose: 50 mg Sodium Chloride (Sodium Chloride 0.65% Na Soln 45 Ml ([place])) 2 sprays NA PRN PRN PRN Reason: nasal congestion or dryness Stop: 03/26/24 10:01 Last Admin: 02/26/24 08:13 Dose: 2 sprays PG Care Time/CCT Total # of Minutes Spent Total Time Spent with Patient: Total time spent is greater than 50% in coordination of care (as documented) at patient's floor/unit and/or counseling patient: Coding Level of Care Code 29265 SUB INP/OBS CARE 3/50MIN Diagnoses Acute on chronic heart failure with preserved ejection fraction (HFpEF) I50.33 Coronary artery disease I25.10 Mitral regurgitation and mitral stenosis I05.2 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
--- NOTE | 2024-02-26 11:52 | Nephrology Progress Note ---
Date of Service February 26, 2024 Assessment & Plan (1) Chronic kidney disease, stage 3b: Plan: Baseline creatinine ~1.5-1.6 mg/dL. Noted fluctuations in creatinine consistent with cardiorenal syndrome (right-sided heart failure with pulmonary hypertension and severe MR and TR). Diuresing well. Transitioning from Bumex gtt to Bumex 3 mg IV twice daily today. Creatinine stable/slightly improved. Electrolytes acceptable. Medications are appropriate for kidney function. There is no indication for SEAM HAMMERER at this time. Document strict I/O's. Repeat BMP tomorrow AM. Defer ABELINO/ARB or SGLT2i now given active diuresis, hypotension, and NORM. (2) Acute exacerbation of CHF (congestive heart failure): Plan: Clinically improving. Appreciate cardiology consultation. Transition off gtt tod ay. (3) Anemia in chronic kidney disease (CKD): Plan: Chronic, stable. Repeat H/H tomorrow AM. (4) Diabetes mellitus type 2, uncontrolled: Admission and Anticipated Discharge Date Admission Date: February 22, 2024 Subjective No acute events overnight. Minal feels well this AM. She is breathing comfortably. Edema continues to improve. She states that overall she continues to feel better every day. Review of Systems Review of Systems: All systems reviewed & are unremarkable except as noted in HPI & below Physical Exam Constitutional: well developed; no acute distress Eyes: no scleral abnormality and no corneal abnormality ENMT: Mouth: no oral mucosal abnormality and oral mucous membranes not dry Neck: normal visual inspection and trachea midline Respiratory: normal respiratory effort Auscultation: lungs clear to auscultation bilaterally Cardiovascular: Rate/Rhythm: regular rate Heart Sounds: normal S1 and normal S2 Extremities: no edema Musculoskeletal: Extremities: no cyanosis and no clubbing Skin: normal turgor; no lesions Neurologic: Motor/Sensory: no tremor and no asterixis Psychiatric: Orientation: alert and oriented x 3 Results & Data Vital Signs (Past 12 Hours) Vital Signs Temp Pulse Resp BP Pulse Ox O2 Del Method O2 Flow Rate 02/26/24 11:38 36.4 C L 73 18 108/70 96 Nasal Cannula 2 02/26/24 09:16 93 Nasal Cannula 1 02/26/24 09:15 Nasal Cannula 1 02/26/24 07:56 36.3 C L 71 18 104/50 L 93 Nasal Cannula 2 02/26/24 03:44 36.6 C 75 18 126/64 95 Nasal Cannula 2 Laboratory Results Laboratory Results - last 24 hr 02/25/24 02/25/24 02/25/24 12:16 17:13 20:09 Sodium Potassium Chloride Carbon Dioxide Anion Gap BUN Creatinine Est Cr Clr Drug Dosing eGFR BUN/Creatinine Ratio Glucose POC Glucose 177 H 169 H 147 H Calcium Phosphorus Albumin 02/26/24 02/26/24 05:54 08:18 Sodium 142 Potassium 3.8 Chloride 98 Carbon Dioxide 35 H Anion Gap 9 BUN 53 H Creatinine 1.61 H Est Cr Clr Drug Dosing 33.1 eGFR 31.96 BUN/Creatinine Ratio 32.9 H Glucose 100 H POC Glucose 117 H Calcium 8.8 Phosphorus 4.6 Albumin 3.6 PG Care Time/CCT Total # of Minutes Spent Total Time Spent with Patient: Total time spent is greater than 50% in coordination of care (as documented) at patient's floor/unit and/or counseling patient: Coding Level of Care Code 75274 SUB INP/OBS CARE 3/50MIN Diagnoses Chronic kidney disease, stage 3b N18.32 Acute on chronic congestive heart failure, unspecified heart failure type I50.9 Heart failure type: unspecified Anemia in chronic kidney disease (CKD) N18.9; D63.1 Diabetes mellitus type 2, uncontrolled E11.65 (2) Acute exacerbation of CHF (congestive heart failure) Heart failure type: unspecified Qualified Code(s): I50.9 - Heart failure, unspecified
[2024-02-26] MEDS: BUMETANIDE 3 MG in SYRINGE 0 ML IV SCH (11:57)
[2024-02-26] MEDS ORDERED: Nursing to Pharmacy Communication SCH (12:45)
--- NOTE | 2024-02-26 12:58 | Hospitalist Progress Note ---
Date of Service February 26, 2024 Assessment & Plan (1) Acute exacerbation of CHF (congestive heart failure): (2) Atrial fibrillation: (3) Chronic kidney disease, stage 3b: (4) Type 2 diabetes with complication: Plan 83-year-old woman with HFpEF MR/MS, pulmonary hypertension, CKD-3b with brittle volume status admitted with heart failure exacerbation #acute on chronic HFpEF, right and left heart failure, mitral regurgitation/mitral stenosis, valvular pulmonary hypertension #atrial fibrillation with rapid ventricular response, likely permanent atrial fibrillation #CKD 3B with tenuous renal status, required dialysis in the fall has fistula #CAD with some chest tightness seems to have resolved TTE this admission borderline LVEF 50-55%, moderate to severe mitral regurg and mitral stenosis, mild concentric LVH, mildly dilated RV and LV, severely dilated LA moderately dilated RA, moderate TR, RVSP 50-60 mm where he was net negative-1700 mL and lost 3 pounds overnight on very low-dose Bumex drip. Renal function continues to hold up and creatinine has improved to the 1.6 electrolytes are acceptable. Today I will try to change to intermittent IV Bumex 3 mg twice daily which is more or less equivalent dosing low dose digoxin load 02/22 and heart rate now well controlled. continue low dose oral digoxin while in hospital. follow-up digoxin level ordered for this afternoon carvedilol held for hypotension 02/22 and to allow for diuresis - bp improved mostly normotensive last 24 hours change Bumex to torsemide for discharge, for better GI absorption continue apixaban if chest tightness/angina persists, add nitrate and consider angiogram, troponins were negative on admission, no further chest tightness or chest pain at this point hypoxia and pulmonary hypertension - 2 step for home O2 prior to discharge. she may not qualify based on hypoxia however I wonder if she can be qualified on the basis of pulmonary hypertension #DM type 2. A1c 7.9 which is adequate for her advanced age Continue Tresiba or pharmacy to place on equivalent medication per hospital formulary Continue premeal/PRN insulin Pharmacy consulting for glycemic management 02/25 blood glucoses are at goal Chronic medical problems: HTN - carvedilol held currently GERD - continue protonix Hypothyroidism - chronic, continue levothyroxine 112mcg daily DVT ppx - apixaban Admission and Anticipated Discharge Date Admission Date: February 22, 2024 Subjective Elda is feeling pretty good today she still having some dyspnea on exertion and lightheadedness when up and around but has been walking to the bathroom leg edema significantly improved no longer has abdominal swelling or thigh edema. hypoxia improved, titrating down on oxygen. she was now able to sleep well through the night without waking up dyspneic Physical Exam 2 Physical Exam: PHYSICAL EXAMINATION Last 24h vital signs reviewed, see documentation in flowsheet General: awake and sitting in the chair talking to her sister on the phone HEENT: Normocephalic, atraumatic, pupils round and equal, sclerae anicteric, no conjunctival injection, moist mucus membranes Lungs: nonlabored, mild basilar crackles. no wheeze Heart: irreg irreg, systolic murmur. Abdomen: Soft, nontender, nondistended. Bowel sounds present. no abdominal wall edema Extremities: Warm, dry, well-perfused. edema of thighs seems to have resolved, pitting edema to upper calf, improved now can see contours of ankles Neuro: Alert and oriented x 4, face symmetric, moves 4 extremities well Psych: Normal affect and behavior Results & Data Results & Data Vital Signs (Past 12 Hours) Vital Signs Temp Pulse Resp BP Pulse Ox O2 Del Method O2 Flow Rate 02/26/24 11:38 97.5 F L 73 18 108/70 96 Nasal Cannula 2 02/26/24 09:16 93 Nasal Cannula 1 02/26/24 09:15 Nasal Cannula 1 02/26/24 07:56 97.3 F L 71 18 104/50 L 93 Nasal Cannula 2 02/26/24 03:44 97.9 F 75 18 126/64 95 Nasal Cannula 2 Laboratory Results 02/24/24 07:47 02/26/24 05:54 PG Care Time/CCT Total # of Minutes Spent Total Time Spent with Patient: Total time spent is greater than 50% in coordination of care (as documented) at patient's floor/unit and/or counseling patient: Coding Level of Care Code 25460 SUB INP/OBS CARE 2/35MIN Diagnoses Acute on chronic congestive heart failure, unspecified heart failure type I50.9 Heart failure type: unspecified Atrial fibrillation I48.91 Atrial fibrillation type: unspecified Chronic kidney disease, stage 3b N18.32 Type 2 diabetes with complication E11.8 (1) Acute exacerbation of CHF (congestive heart failure) Heart failure type: unspecified Qualified Code(s): I50.9 - Heart failure, unspecified (2) Atrial fibrillation Atrial fibrillation type: unspecified Qualified Code(s): I48.91 - Unspecified atrial fibrillation
[2024-02-27 07:55] LABS: BUN Creatinine Ratio 30.3 (10-20); Creatinine Clr Calc Pharmacy 28.5 ml/min; Magnesium 2.1 mg/dl (1.7-2.4); Potassium 4.1 mmol/L (3.5-5.1)
--- NOTE | 2024-02-27 08:06 | Hospitalist Progress Note ---
Date of Service February 27, 2024 Assessment & Plan (1) Acute exacerbation of CHF (congestive heart failure): (2) Atrial fibrillation: (3) Chronic kidney disease, stage 3b: (4) Type 2 diabetes with complication: Plan 83-year-old woman with HFpEF MR/MS, pulmonary hypertension, CKD-3b with brittle volume status admitted with heart failure exacerbation #acute on chronic HFpEF, right and left heart failure, mitral regurgitation/mitral stenosis, valvular pulmonary hypertension #atrial fibrillation with rapid ventricular response, likely permanent atrial fibrillation #CKD 3B with tenuous renal status, required dialysis in the fall has fistula. Cardiorenal syndrome #CAD with some chest tightness seems to have resolved TTE this admission borderline LVEF 50-55%, moderate to severe mitral regurg and mitral stenosis, mild concentric LVH, mildly dilated RV and LV, severely dilated LA moderately dilated RA, moderate TR, RVSP 50-60 mm 02/26: Diuresed well on bumex drip through AM 02/25, bumex 3IV bid yesterday, weight down 4# overnight and Cr inflected up - ordered torsemide 100 mg this am. low dose digoxin load 02/22 and heart rate now well controlled. continue low dose oral digoxin while in hospital. digoxin level 02/25 was 1.0 carvedilol held for hypotension 02/22 and to allow for diuresis - bp improved mostly normotensive last 24 hours changed Bumex to torsemide for discharge, for better GI absorption continue apixaban nephrology and cardiology follow up Add SGLT2 on outpatient follow up if renal function, BP adequate hypoxia and pulmonary hypertension - 2 step for home O2 prior to discharge. she may not qualify based on hypoxia however I wonder if she can be qualified on the basis of pulmonary hypertension 2-step and overnight oximetry ordered by cardiology #DM type 2. A1c 7.9 which is adequate for her advanced age Continue Tresiba or pharmacy to place on equivalent medication per hospital formulary Continue premeal/PRN insulin Pharmacy consulting for glycemic management 02/26 blood glucoses are at goal Chronic medical problems: HTN - carvedilol held currently GERD - continue protonix Hypothyroidism - chronic, continue levothyroxine 112mcg daily DVT ppx - apixaban Admission and Anticipated Discharge Date Admission Date: February 22, 2024 Subjective Continues improving. On room air at rest this AM Leg edema still significant but much improved. No chest pain/pressure. Did wake up once early AM with dyspnea. Physical Exam 2 Physical Exam: PHYSICAL EXAMINATION Last 24h vital signs reviewed, see documentation in flowsheet General: in chair on the phone per her habit HEENT: Normocephalic, atraumatic, pupils round and equal, sclerae anicteric, no conjunctival injection, moist mucus membranes Lungs: nonlabored, no basilar crackles. no wheeze Heart: irreg irreg, systolic murmur. Abdomen: Soft, nontender, nondistended. Bowel sounds present. no abdominal wall edema Extremities: Warm, dry, well-perfused. edema of thighs resolved, pitting edema to mid-upper calf, improved again now can see contours of ankles Neuro: Alert and oriented x 4, face symmetric, moves 4 extremities well Psych: Normal affect and behavior Results & Data Results & Data Vital Signs (Past 12 Hours) Vital Signs Temp Pulse Pulse Resp BP Pulse Ox O2 Del Method 02/27/24 03:58 97.9 F 90 16 112/56 L 94 Nasal Cannula 02/26/24 22:38 97.7 F 96 H 18 115/52 L 99 Room Air 02/26/24 21:58 64 02/26/24 20:45 Room Air, Nasal Cannula O2 Flow Rate 02/27/24 03:58 1 02/26/24 22:38 02/26/24 21:58 02/26/24 20:45 2 Laboratory Results 02/24/24 07:47 02/27/24 06:58 PG Care Time/CCT Total # of Minutes Spent Total Time Spent with Patient: Total time spent is greater than 50% in coordination of care (as documented) at patient's floor/unit and/or counseling patient: Coding Level of Care Code 52955 SUB INP/OBS CARE 2/35MIN Diagnoses Acute on chronic congestive heart failure, unspecified heart failure type I50.9 Heart failure type: unspecified Atrial fibrillation I48.91 Atrial fibrillation type: unspecified Chronic kidney disease, stage 3b N18.32 Type 2 diabetes with complication E11.8 (1) Acute exacerbation of CHF (congestive heart failure) Heart failure type: unspecified Qualified Code(s): I50.9 - Heart failure, unspecified (2) Atrial fibrillation Atrial fibrillation type: unspecified Qualified Code(s): I48.91 - Unspecified atrial fibrillation
[2024-02-27] MEDS: TORSEMIDE 100 MG TAB PO SCH (08:52)
--- NOTE | 2024-02-27 09:49 | Cardiology Progress Note ---
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 Ray was transitioned to oral torsemide today. Her weight is down 11 kg. Her kidney function is starting to look a little dry. She continues to be in a rate controlled afib. She has been in Afib for years and the size of her LA on the echo makes maintaining NSR very unlikely. She is maintained on low dose Eliquis for stroke prevention. She had described tightness in her chest on admission but has not had any further concerning anginal symptoms. She will need a two step before she goes home as well as an overnight pulse ox study. I've placed orders for both. If she has a good response to the torsemide she would be ok to discharge tomorrow from a cardiology perspective. Admission and Anticipated Discharge Date Admission Date: February 22, 2024 Subjective Ms. Ray continues to improve. She has had significant diuresis. No chest pain. Her breathing is easier. Review of Systems Review of Systems: All systems reviewed & are unremarkable except as noted in HPI & below Physical Exam Constitutional: WD/WN, vitals as above Respiratory: normal respiratory effort, lungs clear to auscultation Cardiovascular: Rate/Rhythm: + abnormal rate and + abnormal rhythm Heart Sounds: normal S1 and normal S2 Extremities: + edema Skin: no rashes, warm and dry Neurologic: moves all extremities and awake Psychiatric: A+Ox3, euthymic affect Results & Data Vital Signs (Past 12 Hours) Vital Signs Temp Pulse Pulse Resp BP Pulse Ox O2 Del Method 02/27/24 08:29 36.5 C 66 20 114/61 94 Nasal Cannula 02/27/24 03:58 36.6 C 90 16 112/56 L 94 Nasal Cannula 02/26/24 22:38 36.5 C 96 H 18 115/52 L 99 Room Air 02/26/24 21:58 64 O2 Flow Rate 02/27/24 08:29 4 02/27/24 03:58 1 02/26/24 22:38 02/26/24 21:58
--- NOTE | 2024-02-27 10:43 | Nephrology Progress Note ---
Date of Service February 27, 2024 Assessment & Plan (1) Chronic kidney disease, stage 3b: Plan: Baseline creatinine ~1.5-1.6 mg/dL. Noted fluctuations in creatinine consistent with cardiorenal syndrome (right-sided heart failure with pulmonary hypertension and severe MR and TR). Diuresing well. Transitioned to PO torsemide this AM. Creatinine stable. Electrolytes acceptable. Medications are appropriate for kidney function. There is no indication for CAMPUS REP at this time. Document strict I/O's. Repeat BMP tomorrow AM. Defer ABELINO/ARB or SGLT2i now given active diuresis, hypotension, and NORM. If kidney function stable, consider starting SGLT2i at outpatient follow up. Follow up in the nephrology clinic (this can be arranged in [place] at patient request) within 1-2 weeks of discharge. (2) Acute exacerbation of CHF (congestive heart failure): Plan: Clinically improving. Appreciate cardiology consultation. I discussed the patient and plan of care with Dr. Patton this AM. (3) Anemia in chronic kidney disease (CKD): Plan: Chronic, stable. Repeat H/H tomorrow AM. (4) Diabetes mellitus type 2, uncontrolled: Admission and Anticipated Discharge Date Admission Date: February 22, 2024 Subjective No acute events overnight. Minal feels well overall this AM. She hopes to be discharged home tomorrow. Review of Systems Review of Systems: All systems reviewed & are unremarkable except as noted in HPI & below Physical Exam Constitutional: well developed; no acute distress Eyes: no scleral abnormality and no corneal abnormality ENMT: Mouth: no oral mucosal abnormality and oral mucous membranes not dry Neck: normal visual inspection and trachea midline Respiratory: normal respiratory effort Auscultation: lungs clear to auscultation bilaterally Cardiovascular: Rate/Rhythm: regular rate Heart Sounds: normal S1 and normal S2 Extremities: no edema Musculoskeletal: Extremities: no cyanosis and no clubbing Skin: normal turgor; no lesions Neurologic: Motor/Sensory: no tremor and no asterixis Psychiatric: Orientation: alert and oriented x 3 Results & Data Vital Signs (Past 12 Hours) Vital Signs Temp Pulse Resp BP Pulse Ox O2 Del Method O2 Flow Rate 02/27/24 10:03 95 Room Air 02/27/24 09:00 Nasal Cannula 2 02/27/24 08:29 36.5 C 66 20 114/61 94 Nasal Cannula 4 02/27/24 03:58 36.6 C 90 16 112/56 L 94 Nasal Cannula 1 Laboratory Results Laboratory Results - last 24 hr 02/26/24 02/26/24 02/26/24 12:09 15:47 17:09 Sodium Potassium Chloride Carbon Dioxide Anion Gap BUN Creatinine Est Cr Clr Drug Dosing eGFR BUN/Creatinine Ratio Glucose POC Glucose 153 H 124 H Calcium Magnesium Digoxin 1.0 02/26/24 02/27/24 02/27/24 20:15 06:58 08:14 Sodium 142 Potassium 4.1 Chloride 99 Carbon Dioxide 36 H Anion Gap 7 BUN 56 H Creatinine 1.85 H Est Cr Clr Drug Dosing 28.5 eGFR 27.05 BUN/Creatinine Ratio 30.3 H Glucose 98 POC Glucose 134 H 103 H Calcium 9.0 Magnesium 2.1 Digoxin PG Care Time/CCT Total # of Minutes Spent Total Time Spent with Patient: Total time spent is greater than 50% in coordination of care (as documented) at patient's floor/unit and/or counseling patient: Coding Level of Care Code 95401 SUB INP/OBS CARE 3/50MIN Diagnoses Chronic kidney disease, stage 3b N18.32 Acute on chronic congestive heart failure, unspecified heart failure type I50.9 Heart failure type: unspecified Anemia in chronic kidney disease (CKD) N18.9; D63.1 Diabetes mellitus type 2, uncontrolled E11.65 (2) Acute exacerbation of CHF (congestive heart failure) Heart failure type: unspecified Qualified Code(s): I50.9 - Heart failure, unspecified
--- NOTE | 2024-02-27 13:54 | Pharmacy Report ---
Pharmacy Glycemic Sign Off Nt - Date of Service February 27, 2024 - Assessment & Plan ASSESSMENT: * Pharmacy was consulted by Kavya Navarro on 02/21 for glycemic control and to write orders per [facility] inpatient glycemic control protocol. * Major changes made by pharmacy to antidiabetic regimen include: * added novolog scale/Lantus * Patient has been receiving/requiring ~40 units of insulin per day for adequate glycemic control * Regimen has not required any adjustments since 02/21 * Please see recommendations for outpatient antidiabetic regimen below. PLAN FOR INPATIENT GLYCEMIC CONTROL: No changes needed to current regimen. * Continue basal insulin with Lantus 20 units SQ HS * Continue NovoLog per scale ACHS/Q6hrs while NPO * Goal range = 120-160 mg/dl * CF = 30 mg/dl/unit * CR = 1 unit for ever 7 g CHO consumed * Pharmacy is signing off of glycemic consult and will no longer be making adjustments to inpatient regimen. Please feel free to re-consult if needed. Thank you.
[2024-02-28 07:14] LABS: Hematocrit (blood only) 34.8 % (37.0-47.0); Hemoglobin 10.9 g/dl (12.0-16.0)
[2024-02-28 07:26] LABS: BUN Creatinine Ratio 33.7 (10-20); Calcium 9.1 mg/dl (8.6-10.3); Creatinine Clr Calc Pharmacy 30.1 ml/min; Magnesium 2.2 mg/dl (1.7-2.4); Potassium 4.1 mmol/L (3.5-5.1)
[2024-02-28 07:44] VITALS: RESP 18
--- NOTE | 2024-02-28 10:57 | Nephrology Progress Note ---
Date of Service February 28, 2024 Assessment & Plan (1) Chronic kidney disease, stage 3b: Plan: Baseline creatinine ~1.5-1.6 mg/dL. Noted fluctuations in creatinine consistent with cardiorenal syndrome (right-sided heart failure with pulmonary hypertension and severe MR and TR). Diuresing well. Transitioned to PO torsemide yesterday. Creatinine stable. Electrolytes acceptable. Medications are appropriate for kidney function. There is no indication for [employer]ATOR at this time. Repeat a serum metabolic profile ~Tuesday. I have requested follow up with me in the [facility] nephrology clinic in [place] for 10:30 on March 06. Minal is aware. Defer ABELINO/ARB or SGLT2i now given active diuresis, hypotension, and NORM. If kidney function stable, consider starting SGLT2i at outpatient follow up. (2) Acute exacerbation of CHF (congestive heart failure): Plan: Clinically improving. Appreciate cardiology consultation. (3) Anemia in chronic kidney disease (CKD): Plan: Chronic, stable. LUANA therapy deferred pending monitoring. Outpatient follow up arranged. (4) Diabetes mellitus type 2, uncontrolled: Admission and Anticipated Discharge Date Admission Date: February 22, 2024 Subjective No acute events overnight. Minal is feeling much better this AM and hopes to go home today. Edema improved. She was ambulating in the hallway. O2 sat continues to drop with activity. Home oxygen is being arranged. Minal would like to be discharged home today. Review of Systems Review of Systems: All systems reviewed & are unremarkable except as noted in HPI & below Physical Exam Constitutional: well developed; no acute distress Eyes: no scleral abnormality and no corneal abnormality ENMT: Mouth: no oral mucosal abnormality and oral mucous membranes not dry Neck: normal visual inspection and trachea midline Respiratory: normal respiratory effort Auscultation: lungs clear to auscultation bilaterally Cardiovascular: Rate/Rhythm: regular rate Heart Sounds: normal S1 and normal S2 Extremities: no edema Musculoskeletal: Extremities: no cyanosis and no clubbing Skin: normal turgor; no lesions Neurologic: Motor/Sensory: no tremor and no asterixis Psychiatric: Orientation: alert and oriented x 3 Results & Data Vital Signs (Past 12 Hours) Vital Signs Temp Pulse Pulse Pulse Pulse Pulse Pulse 02/28/24 09:56 36.6 C 73 78 02/28/24 09:35 126 H 105 H 117 H 02/28/24 08:00 02/28/24 07:43 36.6 C 78 02/28/24 07:00 85 02/28/24 03:37 36.3 C L 72 02/28/24 03:06 31 L 02/28/24 00:10 36.4 C L 61 02/27/24 23:16 61 Resp Resp Resp Resp BP Pulse Ox Pulse Ox 02/28/24 09:56 18 118/76 92 02/28/24 09:35 22 18 18 95 02/28/24 08:00 02/28/24 07:43 18 118/76 92 02/28/24 07:00 02/28/24 03:37 20 118/72 97 02/28/24 03:06 02/28/24 00:10 18 100/65 98 02/27/24 23:16 Pulse Ox Pulse Ox O2 Del Method O2 Del Method O2 Flow Rate O2 Flow Rate O2 Flow Rate 02/28/24 09:56 02/28/24 09:35 93 87 L 2 2 02/28/24 08:00 Nasal Cannula 2 02/28/24 07:43 Nasal Cannula 2 02/28/24 07:00 02/28/24 03:37 Nasal Cannula 2 02/28/24 03:06 93 Nasal Cannula 02/28/24 00:10 Nasal Cannula 2 02/27/24 23:16 97 Nasal Cannula O2 Flow Rate 02/28/24 09:56 02/28/24 09:35 02/28/24 08:00 02/28/24 07:43 02/28/24 07:00 02/28/24 03:37 02/28/24 03:06 2 02/28/24 00:10 02/27/24 23:16 2 Laboratory Results Laboratory Results - last 24 hr 02/27/24 02/27/24 02/27/24 12:19 17:06 20:27 Hgb Hct Sodium Potassium Chloride Carbon Dioxide Anion Gap BUN Creatinine Est Cr Clr Drug Dosing eGFR BUN/Creatinine Ratio Glucose POC Glucose 121 H 112 H 107 H Calcium Magnesium 02/28/24 02/28/24 06:25 07:59 Hgb 10.9 L Hct 34.8 L Sodium 140 Potassium 4.1 Chloride 98 Carbon Dioxide 34 H Anion Gap 8 BUN 59 H Creatinine 1.75 H Est Cr Clr Drug Dosing 30.1 eGFR 28.92 BUN/Creatinine Ratio 33.7 H Glucose 105 H POC Glucose 103 H Calcium 9.1 Magnesium 2.2 PG Care Time/CCT Total # of Minutes Spent Total Time Spent with Patient: Total time spent is greater than 50% in coordination of care (as documented) at patient's floor/unit and/or counseling patient: Coding Level of Care Code 77028 SUB INP/OBS CARE 3/50MIN Diagnoses Chronic kidney disease, stage 3b N18.32 Acute on chronic congestive heart failure, unspecified heart failure type I50.9 Heart failure type: unspecified Anemia in chronic kidney disease (CKD) N18.9; D63.1 Diabetes mellitus type 2, uncontrolled E11.65 (2) Acute exacerbation of CHF (congestive heart failure) Heart failure type: unspecified Qualified Code(s): I50.9 - Heart failure, unspecified
[2024-02-28 11:10] VITALS: BP 113/77; TEMP 97.3; O2SAT 95
[2024-02-28 11:55] VITALS: PULSE 73
--- NOTE | 2024-02-28 11:56 | Discharge Summary ---
Discharge Summary Date of Service February 28, 2024 Principal Dx & Hospital Course #1 = Principal Diagnosis Admission HPI Per Admitting Provider Minal is an 83 yo F with a pmhx of CAD, HTN, DMT2, HLD and PAF who presents to the ER today c/o increased lower extremity edema and weight gain. She reports that she has been experiencing increased dyspnea with exertion, occasionally nonproductive cough, and a weight gain of about 4 lbs over the last couple of days. She endorses orthopnea as well as intermittent palpitations. She has a h/o PAF but reports that she feels that she has been in afib more frequently than prior. She has been taking her Bumex as prescribed and denies increased fluid consumption of dietary indiscretion. [facility] May 20[facility] at [facility] where it was noted her last echo was from November 2022 showing EF 55-60%, moderate MR, and ascending aorta measuring 4.3 cm. Her ER work up this afternoon is notable for a BNP of 414, creatinine of 1.52 which is slightly elevated from the last reading in our system which was from August 2022 and was 1.41. CXR demonstrated cardiomegaly but no PVC. She is hemodynamically stable, EKG demonstrates afib with rate control and right axis deviation. No acute ST-T wave changes. She reports that her Bumex dose was doubled on Tuesday to 2mg BID and despite that she continues to experience symptoms. She was seen today in Dr. Alvarenga's office ([facility]) and was sent to the ER due to hypoxia and acute exacerbation of CHF. She is currently resting comfortably in bed and offers no complaints. Discharge Plan Discharge Items Patient Disposition: Home - Home Health Services Reason For Visit: CHF Discharge Diagnosis: 1. congestive heart failure with fluid build-up - latter improved 2. chronic kidney disease 3. atrial fibrillation 4. need for home oxygen - 2 liters at all times 5. valvular heart disease (mitral valve) 6. pulmonary hypertension Activity: Resume your previous activity Non-emergency contact: Primary Care Provider and Specialist Call non-emergency contact if: you have any medication questions and your symptoms worsen Follow-up/Referrals: Eze Hargrove DO [Physician] - 03/15/24 2:40 pm (1-2 weeks with [facility] ([facility])) Pricilla Lewis MD [Primary Care Provider] - (PLEASE CALL YOUR PRIMARY CARE PROVIDER TO SCHEDULE A HOSPITAL DISCHARGE FOLLOW-UP APPOINTMENT WITHIN 7-10 DAYS) Amparo Alvarenga DO [Physician] - 03/07/24 1:15 pm Diet: Carb Consistent or DM2 and Low Sodium (2gm) Fluids: 1800ml (7 cups) Pauly Attending Provider Instructions: Mrs Ray, You were hospitalized due to difficulty breathing from fluid retention from congestive heart failure. You lost a considerable amount of fluid weight with IV then oral diuretics (water pills). [facility] & [facility] both assisted with your care. Various medication changes were made to address your congestive heart failure, a.fib, and your kidney disease. It was determined that you need oxygen at home -- 2 liters via nasal cannula [id number] / continuously. We suspect that a condition called pulmonary hypertension is contributing to the need for supplemental oxygen. (see handout on pulmonary hypertension) Recommendations - 1. Diuretic - stop your bumex (bumetanide). START torsemide 100mg each morning. Take your first dose AM of 02/29/24. 2. START digoxin 0.125mg once daily each afternoon. START this afternoon upon return home. 3. LOWER your carvedilol dose from 12.5mg twice daily to 6.125mg twice daily. New script sent to pharmacy for you. 4. Limit total fluid consumption to no more than 1800ml in a 24-hour period. This includes all liquids (water, juice, coffee, diet soda, etc). 5. Limit total salt consumption to no more than 2000mg in a 24-hour period. 6. Weigh yourself EVERY MORNING - see below. 7. Oxygen - 2 liters continuously. Be sure to bring it with you any time you leave your home. Ask visitors to NOT SMOKE in your home at any time due to high risk of having a fire. 8. Follow-up - see separate section. Return to [facility] if - * you have fever over 100 degrees * you have worsening shortness of breath * you have chest pains * you have dizziness or lightheadedness * any other concerns It was our pleasure to care for you! -Dr Eryn Coats [facility] Supervisor Provider Instructions: Congestive Heart Failure Instructions: Call 911 and go to the Emergency Room if: * You have tightness or pain in your chest that does not go away with rest or Nitroglycerin * You are very short of breath even with rest Call your doctor if any of the following symptoms or problems start or get worse: * Shortness of breath or difficulty breathing * Wake up at night short of breath * Chest pain * Cough * Swelling of your hands, fee, or legs * More fatigued or tired with your normal activity * Palpitations - sudden fast heart beats WEIGHT * Weigh yourself every morning after using the bathroom. * Use the same scale. * Wear the same amount of clothing. * Write your weight down on your chart. * Call your doctor if you gain more than 3 pounds in 1-2 days. This is often one of the first signs of fluid retention from congestive heart failure. Don't delay - call your heart doctor or family doctor right away MEDICATIONS * Use this discharge instruction sheet for instructions. * Take your medications at the time your doctor ordered. * Do not skip a dose of your medicines. * If you miss a dose of medicine, take as soon as possible, but DO NOT DOUBLE A DOSE. * Read your medicine information when you get home. * Know all of the side effects of your medicine. * Call your doctor's office if you have any side effects. * Be sure all of your doctors know what medicine and herbs you take (including cold, flu, and herbal medicine). * Pain Medicine: If you do not get relief from your pain, please call your doctor for help. Take the following with you to your follow-up doctor appointments: * Weight Chart * Medication List * List of questions Do not drink excessive alcohol, beer or wine. Pending Studies at Discharge: No Stand-Alone Forms: [facility], Smoking Cessation Medications and DC Order Prescriptions: New (DME) Oxygen Home Liters Per Minute See Rx Instructions .ROUTE .MEDSUPPLY Qty: 1 0RF Rx Instructions: 2 liters NC O2 continuously. torsemide 100 mg Tablet 100 mg PO QAM Qty: 30 5RF Rx Instructions: diuretic/water pill digoxin [Digitek] 125 mcg (0.125 mg) Tablet 0.125 mg PO DAILY@1600 Qty: 30 5RF Rx Instructions: for atrial fibrillation Continued insulin degludec [Tresiba FlexTouch U-200] 200 unit/mL (3 mL) insulin pen 40 unit subcut QPM Qty: 18 3RF insulin aspart U-100 [Novolog FlexPen U-100 Insulin] 100 unit/mL (3 mL) insulin pen See Rx Instructions subcut TID Qty: 30 3RF Rx Instructions: subcutaneously three times a day; Inject 8 units for Breakfast, 12 units with lunch and dinner. Add pre meal scale target of 150 cf of 30 (DME) blood-glucose meter [ReliOn All-In-One Meter] Kit See Rx Instructions .Route Rx Instructions: As directed pregabalin 50 mg capsule 50 mg PO BID (DME) OneTouch Verio test strips Strip See Rx Instructions .Route Rx Instructions: Test blood sugar four times daily montelukast 10 mg tablet 10 mg PO DAILY Slow-Mag 71.5 mg tablet,delayed release (DR/EC) 71.5 mg PO DAILY mecobalamin (vitamin B12) 1,000 mcg lozenge 1,000 mcg PO DAILY Rx Instructions: allow to dissolve in mouth OR may chew lightly before swallowing ascorbic acid (vitamin C) 500 mg capsule 500 mg PO BID Rx Instructions: Take 1 tablet by mouth twice daily with iron supplement liraglutide [Victoza 3-Manny] 0.6 mg/0.1 mL (18 mg/3 mL) pen injector 1.8 mg SUBCUT QAM calcium carbonate-vitamin D3 [Oyster Shell Calcium-Vit D3] 500 mg-5 mcg (200 unit) tablet 1 tab PO BID aspirin 81 mg Tablet,Delayed Release (Dr/Ec) 81 mg PO DAILY pantoprazole 20 mg tablet,delayed release (DR/EC) 20 mg PO DAILY clotrimazole-betamethasone 1-0.05 % cream 1 applic TOPICAL DAILY nystatin 100,000 unit/gram powder 100,000 unit TOPICAL DAILY levothyroxine 112 mcg tablet 112 mcg PO DAILY ferrous gluconate 225 mg (27 mg iron) Tablet 225 mg PO 3XWK Rx Instructions: Mon/Wed/Fri Eliquis 2.5 mg tablet 2.5 mg PO BID Women's 50 Plus Multivitamin 400 mcg-500 mg calcium-20 mcg Tablet 1 tab PO DAILY methenamine hippurate 1 gram tablet 1 g PO HS Qty: 0 0RF Rx Instructions: Last filled 06/2023 x90 day supply, pt states still taking. Original Directions: 1g by mouth at bedtime Changed atorvastatin 80 mg tablet 80 mg PO DAILY Qty: 0 0RF Rx Instructions: Pt states still taking, unable to verify w/ pharmacy. Original Directions: 80mg by mouth daily carvedilol 6.25 mg tablet 6.25 mg PO BID Qty: 60 5RF Rx Instructions: must administer with a meal/food; note the dose decrease Discontinued bumetanide 2 mg tablet 2 mg PO BID Discharge Orders: Discharge Order (Routine); Ordered 02/28/24 Ordered By: Kranthi Medrano/Other Patient Handouts: Understanding Oxygen Therapy, What Is Heart Failure, Managing Type 2 Diabetes, Coping with Heart Failure, Pulmonary Hypertension Admission Data Admit Date/Time: 02/22/24 15:15 Attending Provider: Kranthi Cerna Admit Provider: Kranthi Larios Primary Care Provider: Pricilla Lewis Other Providers: Kranthi Larios; Amparo Alvarenga; Cruz Gallardo; Liana Hoffman; Eze Hargrove; Marissa Negrete; [facility] Fax; [facility] Other Interventions: Discharge Summary Assessment (RN) Last Done: 02/28/24 09:56 Hospital Stay Data Consultations 02/22/24 13:13 ED Decision to Admit Stat 02/22/24 15:50 Consult Cardiology Routine 02/22/24 16:29 HIM [Consult Health Information Management] Stat 02/23/24 11:09 Consult Nephrology Routine Pending Results Patient Have Any Pending Studies at Discharge: No Discharge Instructions Given to Patient (Per Discharging Provider) Mrs Ray, Coy were hospitalized due to difficulty breathing from fluid retention from congestive heart failure. You lost a considerable amount of fluid weight with IV then oral diuretics (water pills). [facility] & [facility] both assisted with your care. Various medication changes were made to address your congestive heart failure, a.fib, and your kidney disease. It was determined that you need oxygen at home -- 2 liters via nasal cannula [id number] / continuously. We suspect that a condition called pulmonary hypertension is contributing to the need for supplemental oxygen. (see handout on pulmonary hypertension) Recommendations - 1. Diuretic - stop your bumex (bumetanide). START torsemide 100mg each morning. Take your first dose AM of 02/29/24. 2. START digoxin 0.125mg once daily each afternoon. START this afternoon upon return home. 3. LOWER your carvedilol dose from 12.5mg twice daily to 6.125mg twice daily. New script sent to pharmacy for you. 4. Limit total fluid consumption to no more than 1800ml in a 24-hour period. This includes all liquids (water, juice, coffee, diet soda, etc). 5. Limit total salt consumption to no more than 2000mg in a 24-hour period. 6. Weigh yourself EVERY MORNING - see below. 7. Oxygen - 2 liters continuously. Be sure to bring it with you any time you leave your home. Ask visitors to NOT SMOKE in your home at any time due to high risk of having a fire. 8. Follow-up - see separate section. Return to [facility] if - * you have fever over 100 degrees * you have worsening shortness of breath * you have chest pains * you have dizziness or lightheadedness * any other concerns It was our pleasure to care for you! -Dr Cerna Coding
== END 2024-02-28 12:14 | disposition home health service (06) | DRG 291 ==
LOC: ED 10:58 → EDINP 15:15 → SUATTDRO 15:15 → 2N 17:18

== ENCOUNTER 2024-07-30 09:19 | Inpatient (IN) ==
--- NOTE | 2024-07-30 09:30 | Emergency Department Note ---
Impression & Plan UTI (urinary tract infection) Admission ED Provider Note HPI: History obtained from patient. The patient is a 83-year-old female with history of acute on chronic heart failure with preserved ejection fraction, right-sided congestive heart failure, coronary artery disease, chronic atrial fibrillation, chronic kidney disease, class III obesity, hypertension, type 2 diabetes, who presents the emergency department with a chief complaint of shortness of breath and dysuria. Patient states she has had these symptoms for the past several days. Patient states "I just do not feel well". Patient states she has been having some worsening shortness of breath during this time and she used a home test today because she was having some dysuria and she states it was positive for UTI. On arrival here to the ED the patient is febrile, she is saturating at 93% on her baseline 2 L nasal cannula oxygen. ROS: - Per HPI Differential Diagnosis: Sepsis, urinary tract infection, pneumonia, viral upper respiratory infection to include influenza A, COVID-19, amongst other potential pathologies. *Outpatient medications and allergy history reviewed. PE: General: Alert, obese, no acute distress HEENT: Normocephalic, trachea midline Eyes: Extraocular eye movement is intact, no scleral erythema Pulmonary: Clear to auscultation bilaterally, no wheezing Cardio: Tachycardic rate with irregular rhythm GI: Abdomen is soft to palpation : No suprapubic tenderness MSK: No evidence of trauma or malformation of the extremities, no edema Skin: No evidence of rash Neuro: Alert, no focal deficits Psychiatric: Cooperative INDEPENDENT INTERPRETATIONS: sort supervisor: (As interpreted by myself): - An order was placed for continuous cardiac monitoring - Patient was noted to be in atrial fibrillation with a rate of 115 EKG: (As interpreted by myself): Rate: 117 Rhythm: Atrial fibrillation with RVR Intervals: Within normal limits ST changes: No ST elevation Time: 0936 Chest x-ray: (As interpreted by myself): Mild CHF pattern Interventions provided in ED: - IV fluid bolus, IV cefepime, Tylenol Medical Decision Making: IV was established and lab work obtained, patient was placed on seismographer. Lab work shows a leukocytosis of 16.38, hemoglobin is normal at 12, platelet count is normal, CMP shows chronic kidney disease that appears to be stable, lactic acid is elevated at 2.6. Troponin is negative x 1. BNP is mildly elevated at 362, procalcitonin is low at 0.15. Urinalysis does appear to be consistent with infection with 3+ leukocyte Estrace with significant pyuria. 4+ bacteria. Patient was started on IV cefepime after blood cultures were drawn. Patient was given 250 cc of IV fluid and none further secondary to CHF history and elevated BNP. She remained otherwise hemodynamically stable and her tachycardia did downtrend while here in the ED. Over concern for possible early urosepsis, I did discuss the patient's presentation with the on-call admitting hospitalist, Dr. Devlalle, the patient was placed for admission in stable condition. Consultants/Discussions held with other healthcare providers: - Hospitalist, Dr. Delvalle Disposition discussion held by myself with: - Patient Diagnosis: 1. Urinary tract infection, acute 2. Fever, acute 3. Atrial fibrillation with RVR, acute, mild 4. Leukocytosis, acute Disposition: Admission Kalen Lindsey DO Emergency Medicine Past Med/Surg History Problem List (Updated 07/30/24 @ 13:13 by Kalen Lindsey DO) Sepsis Acute urinary tract infection Hx of urinary tract infection Burning with urination Urinary frequency Oxygen dependent Morbid obesity with BMI of 45.0-49.9, adult Acute on chronic heart failure with preserved ejection fraction (HFpEF) Right-sided congestive heart failure secondary to left-sided congestive heart failure Diastolic CHF, chronic Coronary artery disease Mitral valve disease Mitral regurgitation and mitral stenosis Pulmonary hypertension due to mitral valve disease Chronic atrial fibrillation with rapid ventricular response Anemia in chronic kidney disease (CKD) Acute on chronic renal insufficiency Acute exacerbation of CHF (congestive heart failure) Atrial fibrillation (Acute) JOSHI (dyspnea on exertion) (Acute) Anemia Chronic kidney disease, stage 3b Class 3 obesity Hypertension Type 2 diabetes with complication Nephrolithiasis Arthritis (Acute) Diabetes mellitus type 2, uncontrolled (Acute) Dysesthesia (Acute) Dyslipidemia (Acute) History of diabetic ulcer of foot (Acute) Hypertension after donor nephrectomy requiring medication (Acute) Hypothyroidism (Acute) Nephrolithiasis, uric acid (Acute) Nonproliferative diabetic retinopathy of both eyes (Acute) Peripheral neuropathy (Acute) UTI (urinary tract infection) (Acute) Medical History (Updated 07/30/24 @ 13:13 by Kalen Lindsey DO) Tricuspid regurgitation Surgical History H/O: hysterectomy Hx of cholecystectomy History of appendectomy Family History Family/Other Cancer Diabetes Hypertension Lung disease Prostate cancer Renal cell carcinoma Social History Smoking Status: Never smoker Hx Alcohol Use: No Hx Substance Use: No Preferred Language: Icelandic Communication Ability: Effective Leach Runner Required: No Beliefs That Will Affect Care: None marital status: Current Living Situation: Alone current occupational status: retired Feels Safe at Home: Yes Assistive Devices: Scooter/Electric Scooter, Walker and Wheelchair Allergies Allergies Allergy/AdvReac Type Severity Reaction Status Date / Time celecoxib AdvReac Intermediate VOMITING Verified 07/30/24 11:59 duloxetine AdvReac Intermediate VOMITING Verified 07/30/24 11:59 fosinopril AdvReac Intermediate VOMITING Verified 07/30/24 11:59 gabapentin AdvReac Intermediate VOMITING Verified 07/30/24 11:59 hydrocodone AdvReac Intermediate VOMITING Verified 07/30/24 11:59 milnacipran AdvReac Intermediate VOMITING Verified 07/30/24 11:59 nalbuphine AdvReac Intermediate VOMITING Verified 07/30/24 11:59 NSAIDS (Non-Steroidal AdvReac Intermediate VOMITING Verified 07/30/24 11:59 Anti-Inflamma salicylates AdvReac Intermediate VOMITING Verified 07/30/24 11:59 Sulfa (Sulfonamide AdvReac Intermediate VOMITING Verified 07/30/24 11:59 Antibiotics) trimethoprim AdvReac Intermediate VOMITING Verified 07/30/24 11:59 Pyrazolones AdvReac Intermediate VOMITING Uncoded 07/30/24 11:59 Home Meds Home Medications Medication Instructions Recorded Confirmed ascorbic acid (vitamin C) 500 mg 500 mg PO BID 04/29/22 07/30/24 capsule blood sugar diagnostic (OneTouch 04/29/22 05/08/24 Verio test strips) magnesium chloride 71.5 mg 71.5 mg PO DAILY 04/29/22 07/30/24 (magnesium chloride) tablet,delayed release (Slow-Mag) mecobalamin (vitamin B12) 1,000 1,000 mcg PO DAILY 04/29/22 07/30/24 mcg lozenges montelukast 10 mg tablet 10 mg PO QAM 04/29/22 07/30/24 pregabalin 50 mg capsule 50 mg PO BID 04/29/22 07/30/24 aspirin 81 mg tablet,delayed 81 mg PO DAILY 08/26/22 07/30/24 release calcium 500 mg (as 1 tab PO BID 08/26/22 07/30/24 carbonate)-vitamin D3 5 mcg (200 unit) tablet (Oyster Shell Calcium-Vitamin D3) liraglutide 0.6 mg/0.1 mL (18 mg/3 1.8 mg subcut QAM 08/26/22 07/30/24 mL) subcutaneous pen injector (IronPlanet 3-Manny) blood-glucose meter ([employer] 10/06/22 05/08/24 All-In-One Meter kit) apixaban 2.5 mg tablet (Eliquis) 2.5 mg PO BID 02/22/24 07/30/24 clotrimazole-betamethasone 1 1 applic topical DAILY 02/22/24 07/30/24 %-0.05 % topical cream ferrous gluconate 225 mg (27 mg 225 mg PO 3XWK 02/22/24 07/30/24 iron) tablet levothyroxine 112 mcg tablet 112 mcg PO DAILYBB 02/22/24 07/30/24 mkbyszpu-[id number]-zhapd ac 400 1 tab PO DAILY 02/22/24 07/30/24 mcg-calcium carb 500 mg-vit K1 20 mcg tablet (Women's 50 Plus Multivitamin) nystatin 100,000 unit/gram topical 100,000 unit topical BID 02/22/24 07/30/24 powder pantoprazole 20 mg tablet,delayed 20 mg PO DAILY 02/22/24 07/30/24 release Fluid Restriction 2100mL PO 06/22/24 calcium acetate 667 mg tablet 667 mg PO TIDWMEAL 07/30/24 07/30/24 Previous Rx's Medication Instructions Recorded Novolog FlexPen U-100 Insulin 100 See Rx Instructions subcut TID #30 09/12/23 unit/mL (3 mL) subcutaneous mL (insulin aspart U-100) Oxygen Home #1 ea 02/28/24 carvedilol 6.25 mg tablet 6.25 mg PO BID #60 tabs 02/28/24 digoxin 125 mcg (0.125 mg) tablet 0.125 mg PO DAILY@1600 #30 tabs 02/28/24 (Digitek) torsemide 100 mg tablet 100 mg PO QAM #30 tabs 02/28/24 insulin degludec 200 unit/mL (3 40 unit (0.2 mL) subcut QPM #18 mL 06/04/24 mL) subcutaneous pen (Tresiba FlexTouch U-200 insulin) Results & Data (ED) Vital Signs Vital Signs - 24 hr 07/30/24 09:30 07/30/24 09:40 07/30/24 09:47 Temperature 38.7 C H Temperature Source Oral Pulse Rate 114 H 123 H Pulse Rate [Apical] 84 Pulse Rate from SpO2 Sensor Respiratory Rate 22 24 Respiratory Effort / Characteristics Non-Labored Spontaneous Non-Labored Spontaneous Respiratory Depth Normal Normal Blood Pressure 131/96 Blood Pressure [Right Arm] 106/66 Blood Pressure Mean 107 Blood Pressure Mean [Right Arm] 79 Pulse Oximetry 93 93 Oxygen Delivery Method Nasal Cannula Nasal Cannula Oxygen Flow Rate 2 2 Sepsis Recent Fever Within 48 Hours No Sepsis New/Unexplained Change in Mental Status N/A Sepsis Action Taken by Nursing Physician Notified 07/30/24 10:00 07/30/24 10:30 07/30/24 11:00 Temperature Temperature Source Pulse Rate Pulse Rate [Apical] 110 H 106 H Pulse Rate from SpO2 Sensor Respiratory Rate 19 20 Respiratory Effort / Characteristics Non-Labored Spontaneous Non-Labored Spontaneous Respiratory Depth Normal Normal Blood Pressure Blood Pressure [Right Arm] 111/70 137/54 L Blood Pressure Mean Blood Pressure Mean [Right Arm] 83 81 Pulse Oximetry 92 93 83 L Oxygen Delivery Method Nasal Cannula Nasal Cannula Nasal Cannula Oxygen Flow Rate 2 2 2 Sepsis Recent Fever Within 48 Hours Sepsis New/Unexplained Change in Mental Status Sepsis Action Taken by Nursing 07/30/24 11:00 07/30/24 11:00 07/30/24 12:12 Temperature Temperature Source Pulse Rate 77 105 H Pulse Rate [Apical] Pulse Rate from SpO2 Sensor 75 108 H Respiratory Rate 24 21 Respiratory Effort / Characteristics Respiratory Depth Blood Pressure 118/82 110/89 Blood Pressure [Right Arm] Blood Pressure Mean 96 96 Blood Pressure Mean [Right Arm] Pulse Oximetry 95 91 94 Oxygen Delivery Method Nasal Cannula Nasal Cannula Oxygen Flow Rate 4 4 Sepsis Recent Fever Within 48 Hours Sepsis New/Unexplained Change in Mental Status Sepsis Action Taken by Nursing Laboratory Data 07/30/24 09:40 07/30/24 09:40 Lab Results 07/30/24 07/30/24 07/30/24 Range/Units 09:40 10:08 10:12 WBC 16.38 H (4.8-10.8) K/ul RBC 4.13 L (4.20-5.40) M/uL Hgb 12.0 (12.0-16.0) g/dl Hct 36.1 L (37.0-47.0) % MCV 87.4 (80.0-100.0) fL MCH 29.1 (25.0-34.0) pg MCHC 33.2 (32.0-36.0) g/dL RDW Std Deviation 51.9 H (36.4-46.3) fL RDW Coeff of Heidi 16.6 H (11.5-14.5) % Plt Count 225 (130-400) K/uL MPV 10.4 (9.4-12.4) fL Immature Gran % (Auto) 0.8 % Neut % (Auto) 86.4 % Lymph % (Auto) 3.9 % Cochran % (Auto) 7.9 % Eos % (Auto) 0.7 % Baso % (Auto) 0.3 % Neut # (Auto) 14.15 H (1.40-6.50) K/uL Lymph # (Auto) 0.64 L (1.20-3.40) K/uL Cochran # (Auto) 1.30 H (0.11-0.59) K/uL Eos # (Auto) 0.11 (0.00-0.50) K/uL Baso # (Auto) 0.05 (0.00-0.20) K/uL Immature Gran # (Auto) 0.13 (0.01-0.20) K/uL PT 10.6 (9.0-12.0) Seconds INR 1.0 (0.9-1.1) Sodium 134 L (136-145) mmol/L Potassium 5.2 H (3.5-5.1) mmol/L Chloride 93 L (98-107) mmol/L Carbon Dioxide 31 (21-32) mmol/L Anion Gap 10 (3-11) BUN 64 H (6-23) mg/dl Creatinine 1.88 H (0.6-1.2) mg/dl Est Cr Clr Drug Dosing 28.7 ml/min eGFR 26.53 BUN/Creatinine Ratio 34.0 H (10-20) Glucose 253 H (70-99(Fasting)) mg/dl Lactate 2.6 H* (0.4-2.0) mmol/L Calcium 9.2 (8.6-10.3) mg/dl Total Bilirubin 0.6 (0.2-1.0) mg/dl AST 15 (13-39) U/L ALT 14 (7-52) U/L Alkaline Phosphatase 47 (34-104) U/L Troponin I High Sens 13.1 (0-14) pg/ml B-Natriuretic Peptide 362 H (0-100) pg/ml Total Protein 7.4 (6.0-8.3) gm/dl Albumin 4.3 (3.4-5.0) gm/dl Globulin 3.1 (2.5-4.0) gm/dl Albumin/Globulin Ratio 1.4 (0.9-2) Lipase 8 L (11-82) U/L Procalcitonin 0.15 (0-0.5) ng/ml Urine Color Yellow Urine Appearance Turbid A (Clear) Urine pH 8.5 H (4.5-7.5) Ur Specific [place] 1.014 (1.000-1.030) Urine Protein 1+ H (Negative) Urine Glucose (UA) Negative (Negative) Urine Ketones Negative (Negative) Urine Blood 1+ H (Negative) Urine Nitrite Negative (Negative) Urine Bilirubin Negative (Negative) Urine Urobilinogen Negative (Negative) Ur Leukocyte Esterase 3+ H (Negative) Urine WBC (Auto) >50 H (0-5) /hpf Urine RBC (Auto) 0-2 (0-2) /hpf U Hyaline Cast (Auto) 0-2 (0-2) /lpf U Epithel Cells (Auto) 0-2 (0-2) /hpf Urine Bacteria (Auto) 4+ H (None Seen) Urine Comment SARS-CoV-2 (PCR) NEGATIVE (Negative) Influenza Type A (PCR) Negative (Neg) Influenza Type B (PCR) Negative (Neg) RSV (RT-PCR) Negative (Neg) 07/30/24 Range/Units 11:23 WBC (4.8-10.8) K/ul RBC (4.20-5.40) M/uL Hgb (12.0-16.0) g/dl Hct (37.0-47.0) % MCV (80.0-100.0) fL MCH (25.0-34.0) pg MCHC (32.0-36.0) g/dL RDW Std Deviation (36.4-46.3) fL RDW Coeff of Heidi (11.5-14.5) % Plt Count (130-400) K/uL MPV (9.4-12.4) fL Immature Gran % (Auto) % Neut % (Auto) % Lymph % (Auto) % Cochran % (Auto) % Eos % (Auto) % Baso % (Auto) % Neut # (Auto) (1.40-6.50) K/uL Lymph # (Auto) (1.20-3.40) K/uL Cochran # (Auto) (0.11-0.59) K/uL Eos # (Auto) (0.00-0.50) K/uL Baso # (Auto) (0.00-0.20) K/uL Immature Gran # (Auto) (0.01-0.20) K/uL PT (9.0-12.0) Seconds INR (0.9-1.1) Sodium (136-145) mmol/L Potassium (3.5-5.1) mmol/L Chloride (98-107) mmol/L Carbon Dioxide (21-32) mmol/L Anion Gap (3-11) BUN (6-23) mg/dl Creatinine (0.6-1.2) mg/dl Est Cr Clr Drug Dosing ml/min eGFR BUN/Creatinine Ratio (10-20) Glucose (70-99(Fasting)) mg/dl Lactate 2.5 H* (0.4-2.0) mmol/L Calcium (8.6-10.3) mg/dl Total Bilirubin (0.2-1.0) mg/dl AST (13-39) U/L ALT (7-52) U/L Alkaline Phosphatase (34-104) U/L Troponin I High Sens (0-14) pg/ml B-Natriuretic Peptide (0-100) pg/ml Total Protein (6.0-8.3) gm/dl Albumin (3.4-5.0) gm/dl Globulin (2.5-4.0) gm/dl Albumin/Globulin Ratio (0.9-2) Lipase (11-82) U/L Procalcitonin (0-0.5) ng/ml Urine Color Urine Appearance (Clear) Urine pH (4.5-7.5) Ur Specific [place] (1.000-1.030) Urine Protein (Negative) Urine Glucose (UA) (Negative) Urine Ketones (Negative) Urine Blood (Negative) Urine Nitrite (Negative) Urine Bilirubin (Negative) Urine Urobilinogen (Negative) Ur Leukocyte Esterase (Negative) Urine WBC (Auto) (0-5) /hpf Urine RBC (Auto) (0-2) /hpf U Hyaline Cast (Auto) (0-2) /lpf U Epithel Cells (Auto) (0-2) /hpf Urine Bacteria (Auto) (None Seen) Urine Comment SARS-CoV-2 (PCR) (Negative) Influenza Type A (PCR) (Neg) Influenza Type B (PCR) (Neg) RSV (RT-PCR) (Neg) Administered Medications Discontinued Medications Acetaminophen (Acetaminophen 500 Mg Tab) 1,000 mg PO NOW STA Stop: 07/30/24 10:23 Last Admin: 07/30/24 10:27 Dose: 1,000 mg Documented By: DANIEL Sodium Chloride (Nss) 250 mls @ 999 mls/hr IV .Q16M ONE Stop: 07/30/24 10:12 Last Infusion: 07/30/24 11:25 Dose: Infused Documented By: Admin: 07/30/24 10:09 Dose: 999 mls/hr Documented By: DANIEL Cefepime HCl (Maxipime 2000mg) 2,000 mg in 20 mls @ 5 mls/min IV NOW STA; Protocol Stop: 07/30/24 10:44 Last Admin: 07/30/24 11:18 Dose: 5 mls/min Documented By: SOPHIA Imaging Data Radiologist's Impression: Chest X-Ray 07/30/24 09:23 XR chest 1V portable CLINICAL HISTORY: edema, chf hx COMPARISON STUDY: 02/22/2024 FINDINGS: Stable cardiomegaly with mild pulmonary vascular congestion. Stable mitral valvular calcifications. Stable mild elevation of the right hemidiaphragm. Inspiration is shallow. No consolidation, pleural effusion, or pneumothorax seen. IMPRESSION: Mild CHF. ACT 112: Negative or not required by law. Electronically signed by: Sonny Hong M.D. 07/30/2024 9:51 AM Abdomen/Pelvis CT 07/30/24 11:[address] WITHOUT CONTRAST CT DOSE: 1601.56 mGy.cm HISTORY: Left-sided flank pain + CVA tenderness; pyelo r/o TECHNIQUE: Multiaxial CT images of the abdomen and pelvis were performed without contrast. A dose lowering technique was utilized adhering to the principles of ALARA. COMPARISON STUDY: 08/26/2022 FINDINGS: ABDOMEN: The bladder is surgically absent. Liver, spleen, pancreas, and adrenal glands have an unremarkable non-IV contrasted appearance. There is mild symmetric stranding adjacent to the kidneys, likely senescent stranding. Kidneys show no hydronephrosis. There are a few tiny calculi at the left kidney. No ureteral calculi seen. There are scattered atherosclerotic calcifications. No abdominal aortic aneurysm. Pelvis: Uterus is absent. No adnexal mass. Urinary bladder is nondistended. There is mild sigmoid diverticulosis. No acute diverticulitis. Normal appendix. No bowel inflammation or obstruction seen. No free fluid, free air, or abscess. No enlarged adenopathy. There are lower lumbar degenerative changes with stable grade 1 anterolisthesis of L5 on S1. IMPRESSION: No acute findings. ACT 112: Negative or not required by law. The above report was generated using voice recognition software. It may contain grammatical, syntax or spelling errors. Electronically signed by: Sonny Hong M.D. 07/30/2024 12:18 PM Discharge Plan Visit Data Chief Complaint: Urinary Symptoms Stated Complaint: BACK PAIN, FLUID RETENTION, UTI SX ED Provider: Kalen Lindsey Discharge Problem: UTI (urinary tract infection) Patient Disposition: Admitted As Inpatient Condition: Fair Forms Stand Alone Forms: [employer] Prescriptions Prescriptions: No Action insulin aspart U-100 [Novolog FlexPen U-100 Insulin] 100 unit/mL (3 mL) insulin pen See Rx Instructions subcut TID Qty: 30 3RF Rx Instructions: subcutaneously three times a day; Inject 8 units for Breakfast, 12 units with lunch and dinner. Add pre meal scale target of 150 cf of 30 insulin degludec [Tresiba FlexTouch U-200] 200 unit/mL (3 mL) insulin pen 40 unit subcut QPM Qty: 18 3RF Fluid Restriction 2100mL PO Rx Instructions: Patient used to follow 1800mL/24 hrs she is increasing to 2100mL/24 hrs while trying to clear a UTI. (DME) blood-glucose meter [[employer] All-In-One Meter] Kit See Rx Instructions .Route Rx Instructions: As directed pregabalin 50 mg capsule 50 mg PO BID (DME) OneTouch Verio test strips Strip See Rx Instructions .Route Rx Instructions: Test blood sugar four times daily montelukast 10 mg tablet 10 mg PO QAM Slow-Mag 71.5 mg tablet,delayed release (DR/EC) 71.5 mg PO DAILY mecobalamin (vitamin B12) 1,000 mcg lozenge 1,000 mcg PO DAILY Rx Instructions: allow to dissolve in mouth OR may chew lightly before swallowing ascorbic acid (vitamin C) 500 mg capsule 500 mg PO BID Rx Instructions: Take 1 tablet by mouth twice daily with iron supplement liraglutide [Victoza 3-Manny] 0.6 mg/0.1 mL (18 mg/3 mL) pen injector 1.8 mg SUBCUT QAM calcium carbonate-vitamin D3 [Oyster Shell Calcium-Vit D3] 500 mg-5 mcg (200 unit) tablet 1 tab PO BID aspirin 81 mg Tablet,Delayed Release (Dr/Ec) 81 mg PO DAILY pantoprazole 20 mg tablet,delayed release (DR/EC) 20 mg PO DAILY clotrimazole-betamethasone 1-0.05 % cream 1 applic TOPICAL DAILY nystatin 100,000 unit/gram powder 100,000 unit TOPICAL BID levothyroxine 112 mcg tablet 112 mcg PO DAILYBB ferrous gluconate 225 mg (27 mg iron) Tablet 225 mg PO 3XWK Rx Instructions: Mon/Wed/Fri Eliquis 2.5 mg tablet 2.5 mg PO BID Women's 50 Plus Multivitamin 400 mcg-500 mg calcium-20 mcg Tablet 1 tab PO DAILY (DME) Oxygen Home Liters Per Minute See Rx Instructions .ROUTE .MEDSUPPLY Qty: 1 0RF Rx Instructions: 2 liters NC O2 continuously. torsemide 100 mg Tablet 100 mg PO QAM Qty: 30 5RF Rx Instructions: diuretic/water pill digoxin [Digitek] 125 mcg (0.125 mg) Tablet 0.125 mg PO DAILY@1600 Qty: 30 5RF Rx Instructions: for atrial fibrillation carvedilol 6.25 mg tablet 6.25 mg PO BID Qty: 60 5RF Rx Instructions: must administer with a meal/food; note the dose decrease calcium acetate 667 mg tablet 667 mg PO TIDWMEAL Referrals Referrals: Pricilla Lewis MD [Primary Care Provider] - Discharge Problem: UTI (urinary tract infection) Qualifiers: Urinary tract infection type: site unspecified
--- NOTE | 2024-07-30 09:53 | XRay Report ---
XR chest 1V portable CLINICAL HISTORY: edema, chf hx COMPARISON STUDY: 02/22/2024 FINDINGS: Stable cardiomegaly with mild pulmonary vascular congestion. Stable mitral valvular calcifi cations. Stable mild elevation of the right hemidiaphragm. Inspiration is shallow. No consolidation, pleural effusion, or pneumothorax seen. IMPRESSION: Mild CHF. ACT 112: Negative or not required by law. Electronically signed by: Sonny Hong M.D. 07/30/2024 9:51 AM
[2024-07-30 09:59] LABS: Basophils # (auto) 0.05 K/uL (0.00-0.20); Basophils % (auto) 0.3 %; Eosinophils # (auto) 0.11 K/uL (0.00-0.50); Eosinophils % (auto) 0.7 %; Hematocrit (blood only) 36.1 % (37.0-47.0); Immature Granulocytes # (auto) 0.13 K/uL (0.01-0.20); Immature Granulocytes % (auto) 0.8 %; Lymphocytes # (auto) 0.64 K/uL (1.20-3.40); Lymphocytes % (auto) 3.9 %; Mean Corpuscular Hemoglobin 29.1 pg (25.0-34.0); Mean Corpuscular Hgb Conc 33.2 g/dL (32.0-36.0); Mean Corpuscular Volume 87.4 fL (80.0-100.0); Mean Platelet Volume 10.4 fL (9.4-12.4); Monocytes % (auto) 7.9 %; Neutrophils # (auto) 14.15 K/uL (1.40-6.50); Neutrophils % (auto) 86.4 %; Platelet Count 225 K/uL (130-400); RDW Coefficient of Variation 16.6 % (11.5-14.5); RDW Standard Deviation 51.9 fL (36.4-46.3); Red Blood Count 4.13 M/uL (4.20-5.40); White Blood Count 16.38 K/ul (4.8-10.8)
[2024-07-30] MEDS: SODIUM CHLORIDE 0.9% 250 ML IV ONE ×2 (10:09→16:47)
[2024-07-30] MEDS: ACETAMINOPHEN 500 MG TAB PO STA (10:27)
[2024-07-30 10:29] LABS: Prothrombin Time 10.6 Seconds (9.0-12.0)
[2024-07-30 10:31] LABS: Albumin Globulin Ratio 1.4 (0.9-2); Albumin Level 4.3 gm/dl (3.4-5.0); Bilirubin,Total 0.6 mg/dl (0.2-1.0); Calcium 9.2 mg/dl (8.6-10.3); Creatinine Clr Calc Pharmacy 28.7 ml/min; Globulin 3.1 gm/dl (2.5-4.0); Potassium 5.2 mmol/L (3.5-5.1); Total Protein 7.4 gm/dl (6.0-8.3)
[2024-07-30 10:33] LABS: Appearance Urine Turbid (Clear); Bacteria Urine Automated 4+ (None Seen); Bilirubin Urine Negative (Negative); Blood Urine 1+ (Negative); Cast Urine Automated 0-2 /lpf (0-2); Color Urine Yellow; Epithelial Cell Urine Auto 0-2 /hpf (0-2); Glucose Urine UA Negative (Negative); Ketones Urine Negative (Negative); Leukocyte Esterase Urine 3+ (Negative); Nitrite Urine Negative (Negative); Protein Urine 1+ (Negative); RBC Urine Automated 0-2 /hpf (0-2); Specific Gravity Urine 1.014 (1.000-1.030); Urobilinogen Urine Negative (Negative); WBC Urine Automated >50 /hpf (0-5); pH Urine 8.5 (4.5-7.5)
[2024-07-30 10:36] LABS: Troponin I High Sensitivity 13.1 pg/ml (0-14)
--- NOTE | 2024-07-30 10:49 | History & Physical Report ---
Date of Service July 30, 2024 Assessment & Plan (1) Acute urinary tract infection: (2) Sepsis: (3) Atrial fibrillation: (4) Chronic kidney disease, stage 3b: (5) Type 2 diabetes with complication: Plan This is an 83-year-old female who presented on 07/30 for dysuria, burning with urination, body aches, and fevers. Coming in for sepsis secondary to urinary tract infection. #UTI | sepsis Leukocytosis of 16.38 on arrival; febrile at 38.7 C + tachycardia UA with +4 bacteria Blood cultures drawn in the ED Lactate 2.6 -> 2.5 on arrival Procalcitonin WNL NSS 250 mL IV x 1 Will defer full fluid bolus in the setting of heart failure; patient is normotensive on admission CT A/P w/o contrast ordered to assess for pyelonephritis UCx + Blood culture drawn Most recent UCx on 02/22/2024 grew E. coli with resistance to amoxicillin, but sensitivity to ceftriaxone Ceftriaxone 2000 mg IV q24h Follow current cultures #HFpEF BNP elevated at 362 on arrival (most recently 414 on 02/22/2024) CXR without pleural effusions, but does exhibit cardiomegaly and mild pulmonary vascular congestion Heart healthy diet Strict I&O monitoring Daily weights Hold torsemide in the setting of sepsis #Atrial fibrillation with RVR HR elevated at 117 on arrival; rate controlled on admission IVF as tolerated Continue dose reduced Eliquis BID Continue carvedilol, digoxin #CKD stage IIIb | hyperkalemia Creatinine 1.88 on arrival (baseline 1.7) AV fistula in the left left upper extremity; not on dialysis, but does follow with [facility] neph[facility] Avoid nephrotoxic agents for possible Mild hyperkalemia at 5.2 on arrival Lokelma QAM Insulin (as above) Hold torsemide for now #Diabetes Last A1c at 7.9% on 02/23/2024 reduce Lantus to 20u QPM with low appetite SSI with target BSG range 110-140mg/dL, CF 25, carb ratio 10 T2DM diet BSG ACHS Adjust regimen as needed AM A1c #CAD | stents x 2 Continue aspirin, atorvastatin, Coreg #Mitral regurgitation and mitral stenosis | pulmonary hypertension Noted; severe; follows with [facility] cardiology (Dr. Alvarenga) Contributory towards CHF #Oxygen dependent 2L NC as needed, which began in February 2024 Thought to be secondary to pulmonary hypertension +/- obesityhypoventilation syndrome COVID, flu, RSV negative on arrival Titrate supplemental oxygen as needed to maintain SpO2 >94% Continuous pulse oximetry #Right thumb pain-IP joint with nodule, no erythema, painful to touch and with flexion-pain acutely came on today. Could be gout. -check thumb xray -trial of voltaren gel -consider colchicine; avoid NSAIDs due to CKD and avoid prednisone due to sepsis Disposition: Admit to PCU telemetry VTE PPx: Eliquis 2.5 mg p.o. BID History of Present Illness Chief Complaint: UTI, SOB Primary Care Provider: Pricilla Lewis MD Mrs. 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 She presented via EMS on 07/30 for burning urination, increased urinary frequency, body aches, and fevers. Patient reports his symptoms started early Tuesday morning on 07/29. Initially, she did not have a fever at home, but started taking Tylenol after she developed body aches and chills. She took a home UTI strip test and tested positive yesterday. She then woke up this morning, and felt much worse. Patient lives by herself. She did not take her regular morning medicines today, as her stomach was upset. Took all of her regular medicine last night including her Eliquis and insulin. She reports good compliance with taking her insulin (NovoLog 8u breakfast, 12u lunch, 12u dinner; Tresiba 40 units at night). No recent change in medications. No recent change in diet. She watches her salt and potassium intake at home. She does have a history of AV fistula in the left arm, as she was previously considering dialysis, but did not require dialysis. She is on submental oxygen at baseline, which she mainly uses at night; however over the past 24 hours, she has been using it constantly due to cough and SOB. No sick contacts. She reports she has had a 4 pound weight gain over the past 2 days. She placed the "patch" on herself yesterday (prescribed by her video journalist) to take off extra fluid. Patient has 8 great-grandchildren, and would like to attend her youngest great grandson's birthday on August 11 if possible; he will be turning 4 years old. Patient ambulates with a walker and wheelchair at baseline. She denies any recent falls. 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 Patient denies pleuritic CP, chest palpitations, abdominal pain, vomiting, diarrhea, blood in the urine/stool, and melena. Allergies Allergy/AdvReac Type Severity Reaction Status Date / Time Pyrazolones Allergy Intermediate Vomiting Verified 07/30/24 13:56 celecoxib AdvReac Intermediate VOMITING Verified 07/30/24 11:59 duloxetine AdvReac Intermediate VOMITING Verified 07/30/24 11:59 fosinopril AdvReac Intermediate VOMITING Verified 07/30/24 11:59 gabapentin AdvReac Intermediate VOMITING Verified 07/30/24 11:59 hydrocodone AdvReac Intermediate VOMITING Verified 07/30/24 11:59 milnacipran AdvReac Intermediate VOMITING Verified 07/30/24 11:59 nalbuphine AdvReac Intermediate VOMITING Verified 07/30/24 11:59 NSAIDS (Non-Steroidal AdvReac Intermediate VOMITING Verified 07/30/24 11:59 Anti-Inflamma salicylates AdvReac Intermediate VOMITING Verified 07/30/24 11:59 Sulfa (Sulfonamide AdvReac Intermediate VOMITING Verified 07/30/24 11:59 Antibiotics) trimethoprim AdvReac Intermediate VOMITING Verified 07/30/24 11:59 Home Medications Medication Instructions Recorded Confirmed Type ascorbic acid (vitamin C) 500 mg 500 mg PO BID 04/29/22 07/30/24 History capsule blood sugar diagnostic (OneTouch 04/29/22 05/08/24 History Verio test strips) magnesium chloride 71.5 mg 71.5 mg PO DAILY 04/29/22 07/30/24 History (magnesium chloride) tablet,delayed release (Slow-Mag) mecobalamin (vitamin B12) 1,000 1,000 mcg PO DAILY 04/29/22 07/30/24 History mcg lozenges montelukast 10 mg tablet 10 mg PO QAM 04/29/22 07/30/24 History pregabalin 50 mg capsule 50 mg PO BID 04/29/22 07/30/24 History aspirin 81 mg tablet,delayed 81 mg PO DAILY 08/26/22 07/30/24 History release calcium 500 mg (as 1 tab PO BID 08/26/22 07/30/24 History carbonate)-vitamin D3 5 mcg (200 unit) tablet (Oyster Shell Calcium-Vitamin D3) liraglutide 0.6 mg/0.1 mL (18 mg/3 1.8 mg subcut QAM 08/26/22 07/30/24 History mL) subcutaneous pen injector (Vupen 3-Manny) blood-glucose meter (WaveCheckOn 10/06/22 05/08/24 History All-In-One Meter kit) Novolog FlexPen U-100 Insulin 100 See Rx Instructions subcut TID #30 09/12/23 07/30/24 Rx unit/mL (3 mL) subcutaneous mL (insulin aspart U-100) apixaban 2.5 mg tablet (Eliquis) 2.5 mg PO BID 02/22/24 07/30/24 History clotrimazole-betamethasone 1 1 applic topical DAILY 02/22/24 07/30/24 History %-0.05 % topical cream ferrous gluconate 225 mg (27 mg 225 mg PO 3XWK 02/22/24 07/30/24 History iron) tablet levothyroxine 112 mcg tablet 112 mcg PO DAILYBB 02/22/24 07/30/24 History dqgoeqxl-cmx-imnxh ac 400 1 tab PO DAILY 02/22/24 07/30/24 History mcg-calcium carb 500 mg-vit K1 20 mcg tablet (Women's 50 Plus Multivitamin) nystatin 100,000 unit/gram topical 100,000 unit topical BID 02/22/24 07/30/24 History powder pantoprazole 20 mg tablet,delayed 20 mg PO DAILY 02/22/24 07/30/24 History release Oxygen Home #1 ea 02/28/24 05/08/24 Rx carvedilol 6.25 mg tablet 6.25 mg PO BID #60 tabs 02/28/24 07/30/24 Rx digoxin 125 mcg (0.125 mg) tablet 0.125 mg PO DAILY@1600 #30 tabs 02/28/24 07/30/24 Rx (Digitek) torsemide 100 mg tablet 100 mg PO QAM #30 tabs 02/28/24 07/30/24 Rx insulin degludec 200 unit/mL (3 40 unit (0.2 mL) subcut QPM #18 mL 06/04/24 07/30/24 Rx mL) subcutaneous pen (Tresiba FlexTouch U-200 insulin) Fluid Restriction 2100mL PO 06/22/24 History calcium acetate 667 mg tablet 667 mg PO TIDWMEAL 07/30/24 07/30/24 History Past Med/Surg History Problem List (Updated 07/30/24 @ 13:13 by Kalen Lindsey DO) Sepsis Acute urinary tract infection Hx of urinary tract infection Burning with urination Urinary frequency Oxygen dependent Morbid obesity with BMI of 45.0-49.9, adult Acute on chronic heart failure with preserved ejection fraction (HFpEF) Right-sided congestive heart failure secondary to left-sided congestive heart failure Diastolic CHF, chronic Coronary artery disease Mitral valve disease Mitral regurgitation and mitral stenosis Pulmonary hypertension due to mitral valve disease Chronic atrial fibrillation with rapid ventricular response Anemia in chronic kidney disease (CKD) Acute on chronic renal insufficiency Acute exacerbation of CHF (congestive heart failure) Atrial fibrillation (Acute) JOSHI (dyspnea on exertion) (Acute) Anemia Chronic kidney disease, stage 3b Class 3 obesity Hypertension Type 2 diabetes with complication Nephrolithiasis Arthritis (Acute) Diabetes mellitus type 2, uncontrolled (Acute) Dysesthesia (Acute) Dyslipidemia (Acute) History of diabetic ulcer of foot (Acute) Hypertension after donor nephrectomy requiring medication (Acute) Hypothyroidism (Acute) Nephrolithiasis, uric acid (Acute) Nonproliferative diabetic retinopathy of both eyes (Acute) Peripheral neuropathy (Acute) UTI (urinary tract infection) (Acute) Medical History (Updated 07/30/24 @ 13:13 by Kalen Lindsey DO) Tricuspid regurgitation Surgical History H/O: hysterectomy Hx of cholecystectomy History of appendectomy Family History Family/Other Cancer Diabetes Hypertension Lung disease Prostate cancer Renal cell carcinoma Social History Smoking Status: Never smoker Hx Alcohol Use: No Hx Substance Use: No Preferred Language: Upper Sorbian Communication Ability: Effective Chief Passenger Ship Steward/Stewardess Required: No Beliefs That Will Affect Care: None marital status: Current Living Situation: Alone current occupational status: retired Other Information That Helps Us Care for You: No Feels Safe at Home: Yes Safety Concerns: Feels Safe At This Time Assistive Devices: Glasses, Oxygen - Continuous, Walker and Wheelchair Review of Systems Review of Systems: See HPI above Physical Exam Physical Exam: General: Mild distress secondary to back pain; non-toxic appearing; frail appearing; cooperative; SpO2 94% on 4L NC HEENT: normocephalic, atraumatic; no scleral icterus; PERRLA; vision and hearing grossly intact Neck: supple; no lymphadenopathy; trachea midline Skin: warm, dry without signs of tenting; no cyanosis; no rashes, bruising, lesions, or erythema noted CV: chest wall NTP; irregularly irregular rhythm tachycardic around 106 bpm; S1/S2 normal; no murmurs/rubs/gallops; pulses intact and symmetric at radial, DP, and PT Lungs: no acute respiratory distress; symmetrical chest wall expansion; clear breath sounds across all lung rosen w/o adventitious sounds; no wheezing ABD: Soft, NTP; BS present; no rebound/guarding; moderate distention secondary body habitus; bruising in the RLQ : Positive suprapubic tenderness; left flank pain; positive left CVA tenderness MSK: no tics or fasciculations; +2 pitting edema noted in the LEs b/l, nonerythematous Neuro: A&Ox3; normal mood and affect; fluent speech; no focal deficits; sensation intact and symmetric in lower EXTR bilaterally Results & Data Results & Data Vital Signs (Past 12 Hours) Vital Signs Temp Pulse Pulse Resp BP BP Pulse Ox 07/30/24 10:30 106 H 20 137/54 L 93 07/30/24 10:00 110 H 19 111/70 92 07/30/24 09:47 38.7 C H 123 H 24 131/96 93 07/30/24 09:40 114 H 07/30/24 09:30 84 22 106/66 93 O2 Del Method O2 Flow Rate 07/30/24 10:30 Nasal Cannula 2 07/30/24 10:00 Nasal Cannula 2 07/30/24 09:47 Nasal Cannula 2 07/30/24 09:40 07/30/24 09:30 Nasal Cannula 2 Laboratory Results Abnormal lab results 07/30/24 07/30/24 07/30/24 Range/Units 09:40 10:12 11:23 WBC 16.38 H (4.8-10.8) K/ul RBC 4.13 L (4.20-5.40) M/uL Hct 36.1 L (37.0-47.0) % RDW Std Deviation 51.9 H (36.4-46.3) fL RDW Coeff of Heidi 16.6 H (11.5-14.5) % Neut # (Auto) 14.15 H (1.40-6.50) K/uL Lymph # (Auto) 0.64 L (1.20-3.40) K/uL [place] # (Auto) 1.30 H (0.11-0.59) K/uL Sodium 134 L (136-145) mmol/L Potassium 5.2 H (3.5-5.1) mmol/L Chloride 93 L (98-107) mmol/L BUN 64 H (6-23) mg/dl Creatinine 1.88 H (0.6-1.2) mg/dl BUN/Creatinine Ratio 34.0 H (10-20) Glucose 253 H (70-99(Fasting)) mg/dl Lactate 2.6 H* 2.5 H* (0.4-2.0) mmol/L B-Natriuretic Peptide 362 H (0-100) pg/ml Lipase 8 L (11-82) U/L Urine Appearance Turbid A (Clear) Urine pH 8.5 H (4.5-7.5) Urine Protein 1+ H (Negative) Urine Blood 1+ H (Negative) Ur Leukocyte Esterase 3+ H (Negative) Urine WBC (Auto) >50 H (0-5) /hpf Urine Bacteria (Auto) 4+ H (None Seen) Diagnostic Findings Chest X-Ray 07/30/24 09:23 XR chest 1V portable CLINICAL HISTORY: edema, chf hx COMPARISON STUDY: 02/22/2024 FINDINGS: Stable cardiomegaly with mild pulmonary vascular congestion. Stable mitral valvular calcifications. Stable mild elevation of the right hemidiaphragm. Inspiration is shallow. No consolidation, pleural effusion, or pneumothorax seen. IMPRESSION: Mild CHF. ACT 112: Negative or not required by law. Electronically signed by: Sonny Hong M.D. 07/30/2024 9:51 AM ECG Additional Comments: ECG revealed atrial fibrillation with RVR at 117 bpm; QTc 424 Code Status & VTE Plan Code Status DNR/DNI VTE Prophylaxis Plan VTE Prophylaxis will be ordered: Yes Supervising Physician Co-Signing Physician Notes PA Supervision Note: I personally saw and examined the patient. I verified all leigh points and agree with URIEL Johnston with the following exceptions and/or additions: S-Pt here with fevers, malaise, flank pain, suprapubic pain, dysuria. Also feeling SOB, not well in general. Found to have UTI, sepsis on admission Histoy and ROS otherwise reviewed as above O- Vitals reviewed Gen: [AAOx3, NAD, obese] HEENT: [anicteric sclerae, EOMI] CV: [irreg irreg, tachycardic, no mgr nl S1S2] Pulm: [CTAB no wcr] Abd: [+BS soft +TTP mild in right flank] Ext: [trace edema legs bilat, right thumb with nodule at IP joint, no erythema, +TTP, painful ROM] Skin: [no rashes, warm/dry] A/P-83 yo female here with UTI, sepsis treating with antibiotics, follow urine and blood cxs, gentle IVFs PG Care Time/CCT Total # of Minutes Spent Total Time Spent with Patient: Total time spent is greater than 50% in coordination of care (as documented) at patient's floor/unit and/or counseling patient: Coding [place] [address] INT INP/OBS CARE 3/75MIN Patient Type Established Medical Decision Making High Complexity Diagnoses Acute urinary tract infection N39.0 Sepsis A41.9 Atrial fibrillation I48.91 Atrial fibrillation type: unspecified Chronic kidney disease, stage 3b N18.32 Type 2 diabetes with complication E11.8 (3) Atrial fibrillation Atrial fibrillation type: unspecified Qualified Code(s): I48.91 - Unspecified atrial fibrillation
[2024-07-30 11:02] LABS: Influenza A virus by PCR Negative (Neg); Influenza B virus by PCR Negative (Neg); RSV by PCR Negative (Neg); SARS CoV2 RNA(COVID-19) Ceph NEGATIVE (Negative)
[2024-07-30] MEDS: CEFEPIME 2000MG 2,000 MG/20 ML SYR IV STA (11:18)
[2024-07-30] MEDS ORDERED: GLUCOSE 10 TAB/TUBE PO PRN (12:04)
[2024-07-30] MEDS ORDERED: CARBOHYDRATES FOR HYPOGLYCEMIA PO PRN (12:04)
[2024-07-30] MEDS ORDERED: GLUCOSE 40% GEL 15 GM TUBE PO PRN (12:04)
[2024-07-30] MEDS ORDERED: GLUCAGON FOR INJ 1 MG VIAL SQ PRN (12:04)
[2024-07-30] MEDS ORDERED: DEXTROSE 50% 50 ML SYRINGE IV PRN (12:04)
--- NOTE | 2024-07-30 12:21 | CT Scan Report ---
ABDOMEN AND PELVIS CT WITHOUT CONTRAST CT DOSE: 1601.56 mGy.cm HISTORY: Left-sided flank pain + CVA tenderness; pyelo r/o TECHNIQUE: Multiaxial CT images of the abdomen and pelvis were performed without contrast. A dose lo wering technique was utilized adhering to the principles of ALARA. COMPARISON STUDY: 08/26/2022 FINDINGS: ABDOMEN: The bladder is surgically absent. Liver, spleen, pancreas, and adrenal glands have an unrema rkable non-IV contrasted appearance. There is mild symmetric stranding adjacent to the kidneys, likel y senescent stranding. Kidneys show no hydronephrosis. There are a few tiny calculi at the left kidne y. No ureteral calculi seen. There are scattered atherosclerotic calcifications. No abdominal aortic aneurysm. Pelvis: Uterus is absent. No adnexal mass. Urinary bladder is nondistended. There is mild sigmoid div erticulosis. No acute diverticulitis. Normal appendix. No bowel inflammation or obstruction seen. No free fluid, free air, or abscess. No enlarged adenopathy. There are lower lumbar degenerative changes with stable grade 1 anterolisthesis of L5 on S1. IMPRESSION: No acute findings. ACT 112: Negative or not required by law. The above report was generated using voice recognition software. It may contain grammatical, syntax o r spelling errors. Electronically signed by: Sonny Hong M.D. 07/30/2024 12:18 PM
[2024-07-30] MEDS: INSULIN ASPART PER UNIT CHARGE SC SCH (13:38)
[2024-07-30] MEDS: SODIUM ZIRCONIUM CYCLOSILICATE 10 GM PACKET PO ONE (13:39)
[2024-07-30] MEDS ORDERED: LIDOCAINE 5% 1 PATCH TD STA (13:44)
[2024-07-30] MEDS: CALCIUM ACETATE 667 MG CAP/TAB PO SCH (16:26)
[2024-07-30] MEDS: DIGOXIN 0.125 MG TAB PO SCH (16:42)
[2024-07-30] MEDS: carvediloL 6.25 MG TAB PO SCH (16:43)
[2024-07-30] MEDS: LIDOCAINE 5% 1 PATCH TD STA (17:03)
[2024-07-30] MEDS: ACETAMINOPHEN 325 MG TAB PO PRN (17:07)
[2024-07-30] MEDS: cefTRIAXone SODIUM 2,000 MG/50 ML BAG IV SCH (19:46)
[2024-07-30] MEDS: NYSTATIN POWDER 15GM BTL EXT SCH (21:17)
[2024-07-30] MEDS: PREGABALIN 50 MG CAP PO SCH (21:28)
[2024-07-30] MEDS: LANTUS PER UNIT CHARGE SQ SCH ×2 (22:24→22:32)
[2024-07-30] MEDS: APIXABAN 2.5 MG TAB PO SCH (22:32)
[2024-07-30] MEDS: Nursing to Pharmacy Communication SCH (22:32)
--- NOTE | 2024-07-31 01:16 | XRay Report ---
Exam(s): XR RIGHT FINGER EXAM: XR Right Fingers, 2 or More Views CLINICAL HISTORY: Reason for exam: right thumb acute pain. TECHNIQUE: Frontal, lateral and oblique views of the fingers of the right hand. COMPARISON: No relevant prior studies available. FINDINGS: Bones/joints: Mild diffuse osteopenia. Mild narrowing and osteophytosis of the interphalangeal joint of the 1st digit. Moderate narrowing and osteophytosis of the 1st carpometacarpal joint. No acute fracture or dislocation. Soft tissues: Unremarkable. No radiopaque foreign body. No subcutaneous gas. 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 No acute fracture or dislocation is seen. Electronically signed by: Chao Lee MD 07/31/24 01:15 AM
[2024-07-31] MEDS: DICLOFENAC SOD 1% GEL 100 GM TUBE EXT PRN (04:53)
[2024-07-31] MEDS: LEVOTHYROXINE SODIUM 112 MCG TABLET PO SCH (05:01)
--- NOTE | 2024-07-31 06:23 | Electrocardiogram Report ---
Test Reason : Blood Pressure : */* mmHG Vent. Rate : 117 BPM Atrial Rate : * BPM P-R Int : * ms QRS Dur : 92 ms QT Int : 304 ms P-R-T Axes : * 142 31 degrees QTcB Int : 424 ms Atrial fibrillation with rapid ventricular response Low voltage QRS Possible Anterolateral infarct (cited on or before 22-Feb-2024) Abnormal ECG When compared with ECG of 22-Feb-2024 11:03, Vent. rate has increased by 34 bpm Confirmed by Serge Patton ([id number]) on 07/31/2024 6:23:34 AM Referred By: Confirmed By: Serge Patton
[2024-07-31 07:43] LABS: Basophils # (auto) 0.04 K/uL (0.00-0.20); Basophils % (auto) 0.3 %; Eosinophils # (auto) 0.05 K/uL (0.00-0.50); Eosinophils % (auto) 0.4 %; Hematocrit (blood only) 32.1 % (37.0-47.0); Hemoglobin 10.4 g/dl (12.0-16.0); Immature Granulocytes # (auto) 0.11 K/uL (0.01-0.20); Immature Granulocytes % (auto) 0.8 %; Lymphocytes # (auto) 0.81 K/uL (1.20-3.40); Lymphocytes % (auto) 5.8 %; Mean Corpuscular Hemoglobin 28.4 pg (25.0-34.0); Mean Corpuscular Hgb Conc 32.4 g/dL (32.0-36.0); Mean Corpuscular Volume 87.7 fL (80.0-100.0); Mean Platelet Volume 9.7 fL (9.4-12.4); Monocytes # (auto) 1.51 K/uL (0.11-0.59); Monocytes % (auto) 10.7 %; Neutrophils # (auto) 11.56 K/uL (1.40-6.50); Platelet Count 169 K/uL (130-400); RDW Coefficient of Variation 16.9 % (11.5-14.5); RDW Standard Deviation 53.7 fL (36.4-46.3); Red Blood Count 3.66 M/uL (4.20-5.40); White Blood Count 14.08 K/ul (4.8-10.8)
[2024-07-31 08:04] LABS: BUN Creatinine Ratio 39.8 (10-20); Calcium 8.5 mg/dl (8.6-10.3); Creatinine Clr Calc Pharmacy 29.5 ml/min; Potassium 4.3 mmol/L (3.5-5.1)
[2024-07-31 08:42] LABS: Estimated Average Glucose 226 mg/dl; Hemoglobin A1C 9.5 % (4.5-5.6)
--- NOTE | 2024-07-31 09:40 | XRay Report ---
XR hip RT 2V w pelvis CLINICAL HISTORY: severe R hip pain COMPARISON: None FINDINGS: No fracture or dislocation seen. No significant degenerative change of the hips. SI joints are unremarkable. IMPRESSION: No acute findings. ACT 112: Negative or not required by law. Electronically signed by: Sonny Hong M.D. 07/31/2024 9:38 AM
[2024-07-31] MEDS: ASPIRIN 81 MG ECTAB PO SCH (09:57)
[2024-07-31] MEDS: MONTELUKAST SODIUM 10 MG TABLET PO SCH (09:57)
[2024-07-31] MEDS: PANTOprazole 40 MG TAB PO SCH (10:12)
[2024-07-31] MEDS ORDERED: MoRPHine SULFATE 2 MG/ML CARP IV PRN (11:37)
[2024-07-31] MEDS: oxyCODONE HCL IR 5 MG TAB (IMMEDIATE RELEASE) PO PRN (12:05)
[2024-07-31] MEDS: DICLOFENAC SOD 1% GEL 100 GM TUBE EXT SCH (12:54)
[2024-07-31] MEDS: predniSONE 20 MG TAB PO SCH (12:54)
[2024-07-31] MEDS: SODIUM ZIRCONIUM CYCLOSILICATE 10 GM PACKET PO SCH (13:16)
[2024-07-31] MEDS: PREGABALIN 50 MG CAP PO SCH (14:53)
--- NOTE | 2024-07-31 17:51 | Hospitalist Progress Note ---
"Date of Service July 31, 2024 Assessment & Plan (1) Acute urinary tract infection: (2) Sepsis: (3) Atrial fibrillation: (4) Chronic kidney disease, stage 3b: (5) Type 2 diabetes with complication: Plan This is an 83-year-old female who presented on 07/30 for dysuria, burning with urination, body aches, and fevers. Coming in for sepsis secondary to urinary tract infection. #UTI | sepsis sepsis improved but remains borderline hypotensive, fever curve has improved CT A/P w/o contrast without evidence of pyelonephritis and no obstruction urine culture with Klebsiella oxytoca and E. coli - follow-up sensitivities and continue ceftriaxone follow-up blood cultures # acute on chronic HFpEF BNP elevated at 362 on arrival (most recently 414 on 02/22/2024) CXR without pleural effusions, but does exhibit cardiomegaly and mild pulmonary vascular congestion Heart healthy diet Strict I&O monitoring Daily weights Hold torsemide in the setting of sepsis - consider resumption tomorrow depending on her blood pressure. Carvedilol is also held because of hypotension will probably need some gentle diuresis once sepsis resolved, currently on 4 L oxygen and 2 is her baseline #Atrial fibrillation with RVR HR elevated at 117 on arrival; rate controlled on admission. rates acceptable last 24 hours Continue dose reduced Eliquis BID Continue carvedilol when able, digoxin #CKD stage IIIb | hyperkalemia Creatinine 1.88 on arrival (baseline 1.7) AV fistula in the left left upper extremity; not on dialysis, but does follow with [place] nephrology Avoid nephrotoxic agents for possible Mild hyperkalemia at 5.2 on arrival resolved stopped [facility] #Diabetes A1c is 9.5%, up from 7.9 this winter reduce Lantus to 20u QPM with low appetite SSI with target BSG range 110-140mg/dL, CF 25, carb ratio 10 reviewed blood glucoses which are at goal on current regimen #CAD | stents x 2 Continue aspirin, atorvastatin, Coreg stable no evidence of acute coronary syndrome #Mitral regurgitation and mitral stenosis | pulmonary hypertension Noted; severe; follows with [facility] cardiology (Dr. Alvarenga) Contributory towards CHF #Oxygen dependent 2L NC as needed, which began in February 2024 Thought to be secondary to pulmonary hypertension +/- obesityhypoventilation syndrome COVID, flu, RSV negative on arrival Titrate supplemental oxygen as needed to maintain SpO2 >94% Continuous pulse oximetry #Right thumb pain-IP joint with nodule, no erythema, painful to touch and with flexion-pain acutely came on today. Could be gout. - thumb x-ray unrevealing - continue voltaren gel, trial of prednisone # left hip / anterior thigh pain distribution of pain is consistent with meralgia paresthetica. Obtained hip x- ray which is negative for fracture - increase pregabalin to 3 times daily cautiously - trial Voltaren gel - repositioned to reduce pressure from pannus on left inguinal area, elevated with blanket continue PCU until sepsis resolved VTE PPx: Eliquis 2.5 mg p.o. BID Admission and Anticipated Discharge Date Admission Date: July 30, 2024 Subjective or he is feeling a little bit better today but continues to have some diffuse myalgias, she has dysuria and urinary frequency, no flank pain, she does have suprapubic pain. Main thing that is bothering her is pain in left groin fold radiating down anterior thigh to her left knee. She has not had any falls. Physical Exam Physical Exam: Last 24h vitals reviewed GEN: Uncomfortable when she is moving around, referable to the left leg HEENT: pupils equal, sclerae anicteric, moist MM RESP: normal WOB, CTAB CV: reg no mrg ABD: soft/nt/nd +BT : no mas SKIN: warm and dry, no generalized rashes extremities: Left hip without deformity, left knee without deformity tolerates range of motion at both but causes increased pain. No tenderness over greater trochanter of hip. No effusion of her knee. NEURO: AOx person, place, and situation. Face symmetric, speech normal, moves 4 ext spontaneously and equally Results & Data Results & Data Vital Signs (Past 12 Hours) Vital Signs Temp Pulse Pulse Resp BP Pulse Ox O2 Del Method 07/31/24 16:26 94 H 07/31/24 15:48 37.3 C 88 18 91/51 L 91 Nasal Cannula 07/31/24 13:03 81 07/31/24 13:00 Nasal Cannula 07/31/24 10:42 37.3 C 86 19 95/53 L 93 Nasal Cannula 07/31/24 07:07 37.9 C H 112 H 20 111/75 92 Nasal Cannula 07/31/24 05:44 98 H O2 Flow Rate 07/31/24 16:26 07/31/24 15:48 4 07/31/24 13:03 07/31/24 13:00 4 07/31/24 10:42 4 07/31/24 07:07 4 07/31/24 05:44 Laboratory Results White blood count improved to 14,000, hemoglobin stable at 10.4, platelets normal Sodium improved to 135, BUN 64 creatinine 1.6 which is her baseline and improved from 1.88 last night urine culture is growing Escherichia coli and Klebsiella oxytoca PG Care Time/CCT Total # of Minutes Spent Total Time Spent with Patient: Total time spent is greater than 50% in coordination of care (as documented) at patient's floor/unit and/or counseling patient: Coding Level of Care Code 38294 SUB INP/OBS CARE 3/50MIN Diagnoses Acute urinary tract infection N39.0 Sepsis A41.9 Atrial fibrillation I48.91 Atrial fibrillation type: unspecified Chronic kidney disease, stage 3b N18.32 Type 2 diabetes with complication E11.8 (3) Atrial fibrillation Atrial fibrillation type: unspecified Qualified Code(s): I48.91 - Unspecified atrial fibrillation"
[2024-08-01 07:39] LABS: Basophils # (auto) 0.03 K/uL (0.00-0.20); Basophils % (auto) 0.2 %; Hematocrit (blood only) 29.4 % (37.0-47.0); Hemoglobin 9.8 g/dl (12.0-16.0); Immature Granulocytes # (auto) 0.13 K/uL (0.01-0.20); Immature Granulocytes % (auto) 0.9 %; Lymphocytes # (auto) 0.74 K/uL (1.20-3.40); Mean Corpuscular Hgb Conc 33.3 g/dL (32.0-36.0); Mean Platelet Volume 9.9 fL (9.4-12.4); Monocytes # (auto) 1.18 K/uL (0.11-0.59); Neutrophils # (auto) 12.68 K/uL (1.40-6.50); Neutrophils % (auto) 85.9 %; Platelet Count 158 K/uL (130-400); RDW Coefficient of Variation 16.7 % (11.5-14.5); RDW Standard Deviation 53.1 fL (36.4-46.3); Red Blood Count 3.38 M/uL (4.20-5.40); White Blood Count 14.76 K/ul (4.8-10.8)
[2024-08-01 07:56] LABS: BUN Creatinine Ratio 38.7 (10-20); Calcium 8.4 mg/dl (8.6-10.3); Creatinine Clr Calc Pharmacy 27.7 ml/min; Potassium 4.2 mmol/L (3.5-5.1)
[2024-08-01] MEDS: FERROUS GLUCONATE 324 MG TAB PO SCH (08:27)
[2024-08-01] MEDS ORDERED: GLUCAGON FOR INJ 1 MG VIAL SQ PRN (08:36)
[2024-08-01] MEDS ORDERED: GLUCOSE 40% GEL 15 GM TUBE PO PRN (08:36)
[2024-08-01] MEDS ORDERED: DEXTROSE 50% 50 ML SYRINGE IV PRN (08:36)
[2024-08-01] MEDS ORDERED: CARBOHYDRATES FOR HYPOGLYCEMIA PO PRN (08:36)
[2024-08-01] MEDS ORDERED: GLUCOSE 10 TAB/TUBE PO PRN (08:36)
[2024-08-01] MEDS: TORSEMIDE 100 MG TAB PO SCH (09:42)
[2024-08-01] MEDS: INSULIN ASPART PER UNIT CHARGE SC SCH (11:56)
--- NOTE | 2024-08-01 12:33 | Hospitalist Progress Note ---
Date of Service August 01, 2024 Assessment & Plan (1) Acute urinary tract infection: Plan: Klebsiella and E. coli isolated. She remains on intravenous Rocephin, day 3. Blood cultures are negative (2) Sepsis: Plan: Present on admission. Now resolved (3) Atrial fibrillation: Plan: Chronic. Rate controlled. Telemetry. Continue Eliquis (4) Chronic kidney disease, stage 3b: Plan: Stable. Monitor intake and output. Serial labs (5) Type 2 diabetes with complication: Plan: Insulin dosage uptitrated today, August 01. Sliding scale coverage adjusted. ADA diet (6) Hyperkalemia: Plan: Present on admission. Now normalized. Lokelma has been discontinued today, August 01 (7) Left leg pain: Plan: Thought to be due to meralgia paresthetica. Hip x-ray negative for fracture. Lyrica has been uptitrated. Voltaren gel has been added. Plan Probable rehab placement at discharge this week. OT and PT assessments pending. Admission and Anticipated Discharge Date Admission Date: July 30, 2024 Subjective Alert and oriented. No distress. OT and PT evaluations are pending. Potassium is now 4.2 and Lokelma is discontinued. Insulin dosage uptitrated today, August 01 and sliding scale coverage adjusted. Demadex has been resumed. She will be transferred to the medical floor. Blood cultures remain negative. She remains on intravenous Rocephin for the Klebsiella and E. coli isolated in the urine. Review of Systems 2 Review of Systems: Constitutionalno fever or chills ENTno blurred vision, no double vision, no epistaxis, no sore throat Respiratoryno cough, no wheezing, no shortness of breath Cardiacno palpitations, no chest pain, no syncope Neeta nausea, vomiting, diarrhea, melena, hematochezia GUno urinary retention, no urinary incontinence, no dysuria, no hematuria Musculoskeletalno joint pain, no muscle tenderness Skinno bruising, no rashes, no pruritus Neurono isolated weakness, no paresthesia. She does have generalized weakness Psychno depression, no anxiety Physical Exam 2 Physical Exam: General-alert and oriented x3, no fever, no chills HEENT-head atraumatic and normocephalic, pupils equal and reactive to light, extraocular muscles intact Neck-no lymphadenopathy or thyromegaly, trachea midline Chest-clear to auscultation. No rales, wheezing or rhonchi Cardiac-regular rate and rhythm, normal S1 and S2 Abdomen-normal bowel sounds, no hepatosplenomegaly Extremities-no cyanosis, clubbing, or edema Neuro-cranial nerves II through XII intact, motor and sensory function within normal limits, strength symmetrical with generalized weakness, no focal deficits Psych-normal affect, normal mood Results & Data Results & Data Vital Signs (Past 12 Hours) Vital Signs Temp Pulse Pulse Resp BP Pulse Ox O2 Del Method 08/01/24 07:37 36.3 C L 69 17 114/64 97 Nasal Cannula 08/01/24 06:22 55 L 08/01/24 02:56 36.8 C 65 18 114/71 95 Nasal Cannula O2 Flow Rate 08/01/24 07:37 4 08/01/24 06:22 08/01/24 02:56 4 Laboratory Results 08/01/24 07:20 08/01/24 07:20 PG Care Time/CCT Total # of Minutes Spent Total Time Spent with Patient: Total time spent is greater than 50% in coordination of care (as documented) at patient's floor/unit and/or counseling patient: Coding Level of Care Code 52507 SUB INP/OBS CARE 3/50MIN Diagnoses Acute urinary tract infection N39.0 Sepsis A41.9 Atrial fibrillation I48.91 Atrial fibrillation type: unspecified Chronic kidney disease, stage 3b N18.32 Type 2 diabetes with complication E11.8 Hyperkalemia E87.5 Left leg pain M79.605 (3) Atrial fibrillation Atrial fibrillation type: unspecified Qualified Code(s): I48.91 - Unspecified atrial fibrillation
[2024-08-01] MEDS: INSULIN ASPART PER UNIT CHARGE SC STA (17:16)
[2024-08-01] MEDS: LANTUS PER UNIT CHARGE SQ SCH (21:01)
[2024-08-02 06:06] LABS: Basophils # (auto) 0.03 K/uL (0.00-0.20); Basophils % (auto) 0.2 %; Eosinophils # (auto) 0.01 K/uL (0.00-0.50); Eosinophils % (auto) 0.1 %; Hematocrit (blood only) 29.6 % (37.0-47.0); Hemoglobin 9.7 g/dl (12.0-16.0); Immature Granulocytes # (auto) 0.12 K/uL (0.01-0.20); Immature Granulocytes % (auto) 0.9 %; Lymphocytes % (auto) 7.7 %; Mean Corpuscular Hemoglobin 28.5 pg (25.0-34.0); Mean Corpuscular Hgb Conc 32.8 g/dL (32.0-36.0); Mean Corpuscular Volume 87.1 fL (80.0-100.0); Monocytes # (auto) 1.26 K/uL (0.11-0.59); Monocytes % (auto) 9.7 %; Neutrophils # (auto) 10.54 K/uL (1.40-6.50); Neutrophils % (auto) 81.4 %; Platelet Count 169 K/uL (130-400); RDW Coefficient of Variation 16.3 % (11.5-14.5); RDW Standard Deviation 52.1 fL (36.4-46.3); White Blood Count 12.96 K/ul (4.8-10.8)
[2024-08-02 06:24] LABS: BUN Creatinine Ratio 43.6 (10-20); Calcium 8.2 mg/dl (8.6-10.3); Creatinine Clr Calc Pharmacy 29.4 ml/min; Potassium 4.3 mmol/L (3.5-5.1)
[2024-08-02] MEDS: INSULIN HUMAN NPH SC SCH (10:26)
--- NOTE | 2024-08-02 12:17 | Hospitalist Progress Note ---
Date of Service August 02, 2024 Assessment & Plan (1) Acute urinary tract infection: Plan: Klebsiella and E. coli isolated. She remains on intravenous Rocephin, day 4. Likely to complete antibiotic therapy while hospitalized. Blood cultures are negative (2) Sepsis: Plan: Present on admission. Now resolved (3) Atrial fibrillation: Plan: Chronic. Rate controlled. Telemetry. Continue Eliquis (4) Chronic kidney disease, stage 3b: Plan: Stable. Monitor intake and output. Serial labs (5) Type 2 diabetes with complication: Plan: Insulin dosage was uptitrated on August 01. Today, August 02, insulin glargine switched to insulin NPH twice daily dosing. Will follow (6) Hyperkalemia: Plan: Present on admission. Now normalized. Lokelma was discontinued on August 01 (7) Left leg pain: Plan: Thought to be due to meralgia paresthetica. Hip x-ray negative for fracture. Lyrica has been uptitrated. Voltaren gel has been added. Plan The patient has requested [facility] placement. Case management aware. OT and PT both recommend rehab placement at discharge. Admission and Anticipated Discharge Date Admission Date: July 30, 2024 Subjective Alert and oriented. No new problems. Potassium remains in a normal range off Lokelma. Rocephin day 4 for the Klebsiella/E. coli UTI. Insulin switched from glargine to NPH for better diabetic control. Demadex was restarted yesterday, August 01. The patient has requested SNF placement at [facility]. Case management aware. Review of Systems 2 Review of Systems: Constitutionalno fever or chills ENTno blurred vision, no double vision, no epistaxis, no sore throat Respiratoryno cough, no wheezing, no shortness of breath Cardiacno palpitations, no chest pain, no syncope Neeta nausea, vomiting, diarrhea, melena, hematochezia GUno urinary retention, no urinary incontinence, no dysuria, no hematuria Musculoskeletalno joint pain, no muscle tenderness Skinno bruising, no rashes, no pruritus Neurono isolated weakness, no paresthesia. She does have generalized weakness Psychno depression, no anxiety Physical Exam 2 Physical Exam: General-alert and oriented x3, no fever, no chills HEENT-head atraumatic and normocephalic, pupils equal and reactive to light, extraocular muscles intact Neck-no lymphadenopathy or thyromegaly, trachea midline Chest-clear to auscultation. No rales, wheezing or rhonchi Cardiac-regular rate and rhythm, normal S1 and S2 Abdomen-normal bowel sounds, no hepatosplenomegaly Extremities-no cyanosis, clubbing, or edema Neuro-cranial nerves II through XII intact, motor and sensory function within normal limits, strength symmetrical with generalized weakness, no focal deficits Psych-normal affect, normal mood Results & Data Results & Data Vital Signs (Past 12 Hours) Vital Signs Temp Pulse Pulse Resp BP Pulse Ox O2 Del Method 08/02/24 11:45 36.5 C 59 L 20 141/68 H 97 Nasal Cannula 08/02/24 07:41 36.6 C 47 L 20 126/57 L 97 Nasal Cannula 08/02/24 06:10 84 115/75 08/02/24 03:47 36.5 C 67 18 136/77 95 Nasal Cannula 08/02/24 02:34 36.7 C 54 L 18 124/77 98 Nasal Cannula O2 Flow Rate 08/02/24 11:45 4 08/02/24 07:41 4 08/02/24 06:10 08/02/24 03:47 4 08/02/24 02:34 4 Laboratory Results 08/02/24 05:40 08/02/24 05:40 PG Care Time/CCT Total # of Minutes Spent Total Time Spent with Patient: Total time spent is greater than 50% in coordination of care (as documented) at patient's floor/unit and/or counseling patient: Coding Level of Care Code 75933 SUB INP/OBS CARE 3/50MIN Diagnoses Acute urinary tract infection N39.0 Sepsis A41.9 Atrial fibrillation I48.91 Atrial fibrillation type: unspecified Chronic kidney disease, stage 3b N18.32 Type 2 diabetes with complication E11.8 Hyperkalemia E87.5 Left leg pain M79.605 (3) Atrial fibrillation Atrial fibrillation type: unspecified Qualified Code(s): I48.91 - Unspecified atrial fibrillation
[2024-08-02] MEDS: INSULIN ASPART PER UNIT CHARGE SC STA (12:47)
[2024-08-03 08:22] VITALS: BP 132/76; RESP 20; TEMP 97.5; O2SAT 97
[2024-08-03] MEDS: INSULIN HUMAN NPH SC SCH (08:54)
[2024-08-03 09:58] VITALS: PULSE 54
--- NOTE | 2024-08-03 10:42 | Discharge Summary ---
Discharge Summary Date of Service August 03, 2024 Principal Dx & Hospital Course #1 = Principal Diagnosis (1) Acute urinary tract infection: Klebsiella and E. coli isolated. Treated while hospitalized with 5 days of intravenous Rocephin. She will not need any further antibiotic treatment at discharge. Blood cultures are negative (2) Sepsis: Present on admission. Now resolved (3) Atrial fibrillation: Chronic. Rate controlled. Telemetry. Continue Eliquis (4) Chronic kidney disease, stage 3b: Stable. Monitor intake and output. Serial labs while hospitalized (5) Type 2 diabetes with complication: Insulin dosage was uptitrated on August 01. On August 02 insulin glargine switched to insulin NPH twice daily dosing. She will resume her usual diabetic management at discharge. (6) Hyperkalemia: Present on admission. Now normalized. Lokelma was discontinued on August 01 (7) Left leg pain: Thought to be due to meralgia paresthetica. Hip x-ray negative for fracture. Lyrica has been uptitrated. Voltaren gel has been added while hospitalized. She will take a prednisone tapering dose at discharge. Plan Discharged to [facility] bed today, August 03 Admission HPI Per Admitting Provider Mrs. 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 She presented via EMS on 07/30 for burning urination, increased urinary frequency, body aches, and fevers. Patient reports his symptoms started early Tuesday morning on 07/29. Initially, she did not have a fever at home, but started taking Tylenol after she developed body aches and chills. She took a home UTI strip test and tested positive yesterday. She then woke up this morning, and felt much worse. Patient lives by herself. She did not take her regular morning medicines today, as her stomach was upset. Took all of her regular medicine last night including her Eliquis and insulin. She reports good compliance with taking her insulin (NovoLog 8u breakfast, 12u lunch, 12u dinner; Tresiba 40 units at night). No recent change in medications. No recent change in diet. She watches her salt and potassium intake at home. She does have a history of AV fistula in the left arm, as she was previously considering dialysis, but did not require dialysis. She is on submental oxygen at baseline, which she mainly uses at night; however over the past 24 hours, she has been using it constantly due to cough and SOB. No sick contacts. She reports she has had a 4 pound weight gain over the past 2 days. She placed the "patch" on herself yesterday (prescribed by her cigar wrapper tender automatic) to take off extra fluid. Patient has 8 great-grandchildren, and would like to attend her youngest great grandson's birthday on August 11 if possible; he will be turning 4 years old. Patient ambulates with a walker and wheelchair at baseline. She denies any recent falls. ED Course: NSS 250mL IV Acetaminophen 1000mg IV Cefepime 2000mg IV ROS: Patient endorses fever, body aches, chills, lightheadedness, STARKS, middle back pain, left flank pain, SOB at rest and with exertion, dry cough, burning with urination, increased urinary frequency, nausea, and swelling in the legs x 1 day [employer]. Patient denies pleuritic CP, chest palpitations, abdominal pain, vomiting, diarrhea, blood in the urine/stool, and melena. Discharge Exam General-alert and oriented x3, no fever, no chills HEENT-head atraumatic and normocephalic, pupils equal and reactive to light, extraocular muscles intact Neck-no lymphadenopathy or thyromegaly, trachea midline Chest-clear to auscultation. No rales, wheezing or rhonchi Cardiac-regular rate and rhythm, normal S1 and S2 Abdomen-normal bowel sounds, no hepatosplenomegaly Extremities-no cyanosis, clubbing, or edema Neuro-cranial nerves II through XII intact, motor and sensory function within normal limits, strength symmetrical with generalized weakness, no focal deficits Psych-normal affect, normal mood Discharge Plan Discharge Items Patient Disposition: Transfer Long Term Fac Reason For Visit: UTI, SEPSIS Discharge Diagnosis: Klebsiella/E. coli UTI, sepsis, hyperkalemia, lower extremity pain from neuropathy Condition on Discharge: Good Activity: Resume your previous activity Non-emergency contact: Primary Care Provider Call non-emergency contact if: your symptoms worsen Follow-up/Referrals: Pricilla Lewis MD [Primary Care Provider] - Diet: Carb Consistent or DM2 and Heart Healthy Addtl Attending Provider Instructions: You have completed your antibiotic treatment for the urinary tract infection. Resume usual diabetic management. Take prednisone in a tapering dose fashion as directed until gone. All other medications remain the same. See primary care physician as soon as possible after discharge from [facility] bed Pending Studies at Discharge: No Stand-Alone Forms: My [facility] Skilled Items Patient informed of condition?: Yes DNR: Yes Discharge Level of Care: Skilled Communicable Disease: No Discharge Prognosis: Stable Lines: None Urinary Catheter: No Medications and DC Order Prescriptions: New prednisone 10 mg tablet See Rx Instructions .ROUTE .COMPLEX Qty: 12 0RF Rx Instructions: 10 mg orally 3 times a day for 2 days, then 10 mg twice a day for 2 days, then 10 mg once a day for 2 days, then stop Continued insulin aspart U-100 [Novolog FlexPen U-100 Insulin] 100 unit/mL (3 mL) insulin pen See Rx Instructions subcut TID Qty: 30 3RF Rx Instructions: subcutaneously three times a day; Inject 8 units for Breakfast, 12 units with lunch and dinner. Add pre meal scale target of 150 cf of 30 insulin degludec [Tresiba FlexTouch U-200] 200 unit/mL (3 mL) insulin pen 40 unit subcut QPM Qty: 18 3RF Fluid Restriction 2100mL PO Rx Instructions: Patient used to follow 1800mL/24 hrs she is increasing to 2100mL/24 hrs while trying to clear a UTI. (DME) blood-glucose meter [ReliOn All-In-One Meter] Kit See Rx Instructions .Route Rx Instructions: As directed pregabalin 50 mg capsule 50 mg PO BID (DME) OneTouch Verio test strips Strip See Rx Instructions .Route Rx Instructions: Test blood sugar four times daily montelukast 10 mg tablet 10 mg PO QAM Slow-Mag 71.5 mg tablet,delayed release (DR/EC) 71.5 mg PO DAILY mecobalamin (vitamin B12) 1,000 mcg lozenge 1,000 mcg PO DAILY Rx Instructions: allow to dissolve in mouth OR may chew lightly before swallowing ascorbic acid (vitamin C) 500 mg capsule 500 mg PO BID Rx Instructions: Take 1 tablet by mouth twice daily with iron supplement liraglutide [Victoza 3-Manny] 0.6 mg/0.1 mL (18 mg/3 mL) pen injector 1.8 mg SUBCUT QAM calcium carbonate-vitamin D3 [Oyster Shell Calcium-Vit D3] 500 mg-5 mcg (200 unit) tablet 1 tab PO BID aspirin 81 mg Tablet,Delayed Release (Dr/Ec) 81 mg PO DAILY pantoprazole 20 mg tablet,delayed release (DR/EC) 20 mg PO DAILY clotrimazole-betamethasone 1-0.05 % cream 1 applic TOPICAL DAILY nystatin 100,000 unit/gram powder 100,000 unit TOPICAL BID levothyroxine 112 mcg tablet 112 mcg PO DAILYBB ferrous gluconate 225 mg (27 mg iron) Tablet 225 mg PO 3XWK Rx Instructions: Mon/Wed/Fri Eliquis 2.5 mg tablet 2.5 mg PO BID Women's 50 Plus Multivitamin 400 mcg-500 mg calcium-20 mcg Tablet 1 tab PO DAILY (DME) Oxygen Home Liters Per Minute See Rx Instructions .ROUTE .MEDSUPPLY Qty: 1 0RF Rx Instructions: 2 liters NC O2 continuously. torsemide 100 mg Tablet 100 mg PO QAM Qty: 30 5RF Rx Instructions: diuretic/water pill digoxin [Digitek] 125 mcg (0.125 mg) Tablet 0.125 mg PO DAILY@1600 Qty: 30 5RF Rx Instructions: for atrial fibrillation carvedilol 6.25 mg tablet 6.25 mg PO BID Qty: 60 5RF Rx Instructions: must administer with a meal/food; note the dose decrease calcium acetate 667 mg tablet 667 mg PO TIDWMEAL Discharge Orders: Discharge Order (Routine); Ordered 08/03/24 Ordered By: Mauricio Medrano/Other Patient Handouts: Managing Type 2 Diabetes Admission Data Admit Date/Time: 07/30/24 11:37 Attending Provider: Mauricio Romero Admit Provider: Alley Delvalle Primary Care Provider: Pricilla Lewis Other Providers: Alley Delvalle Other Interventions: Discharge Summary Assessment (RN) Last Done: 08/03/24 09:56 Hospital Stay Data Consultations 07/30/24 10:45 ED Decision to Admit Stat Diagnostic Imagining Performed 07/30/24 11:38 CT abd pelvis wo con Stat Pending Results Patient Have Any Pending Studies at Discharge: No Discharge Instructions Given to Patient (Per Discharging Provider) You have completed your antibiotic treatment for the urinary tract infection. Resume usual diabetic management. Take prednisone in a tapering dose fashion as directed until gone. All other medications remain the same. See primary care physician as soon as possible after [facility] Total Time Total Time Spent Total Time Spent (In Minutes): 45 minutes Coding Level of Care Code 38317 INP/OBS DISCH >30 MIN Diagnoses Acute urinary tract infection N39.0 Sepsis A41.9 Atrial fibrillation I48.91 Atrial fibrillation type: unspecified Chronic kidney disease, stage 3b N18.32 Type 2 diabetes with complication E11.8 Hyperkalemia E87.5 Left leg pain M79.605
== END 2024-08-03 11:29 | DRG 871 ==
LOC: ED 09:19 → SUATTDRO 11:37 → EDINP 11:37 → 2S 13:54 → 2N 08-01 12:58